=== PATIENT | male | born 1960 | race Caucasian/White ===

== ENCOUNTER → 2019-01-27 15:25 | Outpatient (CLI) | payer SELFPAY ==
[2019-01-27 16:43] LABS: Absolute Neutrophil Count 4.2 X10^3/uL (2.0-7.7); Basophil# 0.03 X10^3/uL; Basophil% 0.5 % (0-1); Eosinophil# 0.11 X10^3/uL; Eosinophils% 1.7 % (0-5); Hematocrit 49.7 % (40-54); Hemoglobin 16.8 g/dl (13.0-16.5); Lymphocyte % 24.2 % (19-41); Mean Corp Hgb Conc 33.8 g/gl (32-36); Mean Corpuscular Hgb 31.8 pg (27.0-32.0); Mean Corpuscular Volume 94.1 fL (80-94); Mean Platelet Vol. 11.1 fl (6.2-12.0); Monocyte# 0.64 X10^3/uL; Monocyte% 9.7 % (0-10); Neutrophil # 4.23 X10^3/uL (2.7-7.7); Neutrophil % 63.7 % (47-70); Platelet Count 261 K/mm3 (150-450); RBC Distribution Width CV 12.8 % (11.6-14.6); RBC Distribution Width SD 43.5 fl (35.1-43.9); Red Blood Count 5.28 M/mm3 (4.6-6.2); White Blood Count 6.6 K/mm3 (4.4-11.0)
[2019-01-27 16:45] LABS: POSITIVE COUNT NO; POSITIVE DIFFERENTIAL NO; POSITIVE MORPHOLOGY NO
[2019-01-27 17:54] LABS: ALB/GLOB Ratio 1.1 RATIO (0.9-2.4); AST(SGOT) 24 U/L (15-37); Alanine Aminotransfer ALT/SGPT 44 U/L (16-61); Albumin, Serum 4.1 g/dL (3.2-5.0); Alkaline Phosphatase 117 U/L (45-117); Anion Gap 6 (5-15); BUN 12 mg/dL (7-18); BUN/Creat Ratio 11.7 RATIO (10-20); Calcium,Total 9.1 mg/dL (8.5-10.1); Chloride 102 mmol/L (98-107); Creatinine, Serum 1.03 mg/dL (0.70-1.30); EST Glomerular Filtration Rate 79 mL/min (>60); Est Glom Filt Rate - Afr Amer 96 mL/min (>60); Globulin 3.7 g/dL (2.2-4.2); Glucose 91 mg/dL (74-106); PSA,Total - Annual Screen 0.67 ng/mL (0.00-4.00); Potassium 4.3 mmol/L (3.5-5.1); Protein, Total 7.8 g/dL (6.4-8.2); Sodium Level 136 mmol/L (136-145)
[2019-01-29 15:29] LABS: Hep C Antibodies <0.1 s/co ratio (0.0-0.9)
== END ==
PROVIDERS: Visit Provider Family Medicine Geriatric Medicine
DX: E78.49 Other hyperlipidemia (principal); Z12.5 Encounter for screening for malignant neoplasm of prostate; Z13.89 Encounter for screening for other disorder
CPT/HCPCS: 36415; 80053; 84153; 84443; 85025; 86803; G0103

== ENCOUNTER → 2019-04-07 09:19 | Outpatient (CLI) | payer OTHER, SELFPAY ==
[2019-04-11 06:08] LABS: QNTFERON TB Mitogen Value > 10.00 IU/mL (.); QNTFERON TB Nil Value 0.03 IU/mL (.); QNTFERON TB1+ Ag Value 0.02 IU/mL (.); QNTFERON TB2+ Ag Value 0.02 IU/mL (.)
[2019-04-11 11:12] LABS: QNTIFERON TB Positive Criteria Negative (Negative)
== END ==
PROVIDERS: Family Provider Family Medicine Geriatric Medicine; PCP Family Medicine Geriatric Medicine; Referring Provider Nurse Practitioner Family; Visit Provider Nurse Practitioner Family
DX: L81.4 Other melanin hyperpigmentation (principal); L40.4 Guttate psoriasis; L40.0 Psoriasis vulgaris; Z79.899 Other long term (current) drug therapy
CPT/HCPCS: 36415; 86480

== ENCOUNTER → 2020-08-16 08:26 | Outpatient (CLI) | payer OTHER, SELFPAY ==
[2020-08-16 10:03] LABS: Absolute Lymphocyte Count 1.63 X10^3/uL (0.83-4.51); Basophil# 0.04 X10^3/uL; Basophil% 0.9 % (0-1); Eosinophil# 0.12 X10^3/uL; Eosinophils% 2.8 % (0-5); Hematocrit 50.6 % (40-54); Hemoglobin 16.7 g/dL (13.0-16.5); Lymphocyte # 1.63 X10^3/ul (4.0); Lymphocyte % 37.4 % (19-41); Mean Corpuscular Hgb 32.2 pg (27.0-32.0); Mean Corpuscular Volume 97.5 fL (80-94); Mean Platelet Vol. 10.2 fl (6.2-12.0); Monocyte# 0.52 X10^3/uL; Monocyte% 11.9 % (0-10); NRBC Flagged by Analyzer 0 % (0-5); Neutrophil # 2.04 X10^3/uL (2.7-7.7); Neutrophil % 46.8 % (47-70); Platelet Count 248 K/mm3 (150-450); RBC Distribution Width CV 12.2 % (11.6-14.6); RBC Distribution Width SD 43.8 fl (35.1-43.9); Red Blood Count 5.19 M/mm3 (4.6-6.2); White Blood Count 4.4 K/mm3 (4.4-11.0)
[2020-08-16 10:17] LABS: AST(SGOT) 27 U/L (15-37); Alanine Aminotransfer ALT/SGPT 55 U/L (16-61); Alkaline Phosphatase 92 U/L (45-117); Anion Gap 5 (5-15); BUN 11 mg/dL (7-18); BUN/Creat Ratio 10.6 RATIO (10-20); Calcium,Total 9.3 mg/dL (8.5-10.1); Chloride 103 mmol/L (98-107); Creatinine, Serum 1.04 mg/dL (0.70-1.30); EST Glomerular Filtration Rate 78 mL/min (>60); Est Glom Filt Rate - Afr Amer 94 mL/min (>60); Glucose 133 mg/dL (74-106); Potassium 4.4 mmol/L (3.5-5.1); Sodium Level 134 mmol/L (136-145)
[2020-08-20 03:06] LABS: QNTFERON TB Mitogen Value > 10.00 IU/mL (.); QNTFERON TB Nil Value 0.05 IU/mL (.); QNTFERON TB1+ Ag Value 0.05 IU/mL (.); QNTFERON TB2+ Ag Value 0.06 IU/mL (.)
[2020-08-20 12:14] LABS: QNTIFERON TB Positive Criteria Negative (Negative)
== END ==
PROVIDERS: PCP Family Medicine Geriatric Medicine; Referring Provider Physician Assistant; Visit Provider Physician Assistant
DX: L40.0 Psoriasis vulgaris (principal); Z79.899 Other long term (current) drug therapy
CPT/HCPCS: 36415; 80053; 85025; 86480

== ENCOUNTER → 2021-08-16 07:57 | Outpatient (CLI) | payer OTHER, SELFPAY ==
[2021-08-16 10:05] LABS: Absolute Lymphocyte Count 1.98 X10^3/uL (0.83-4.51); Basophil# 0.04 X10^3/uL; Basophil% 0.7 % (0-1); Eosinophil# 0.18 X10^3/uL; Eosinophils% 3.1 % (0-5); Hematocrit 51.5 % (40-54); Hemoglobin 17.6 g/dL (13.0-16.5); Lymphocyte # 1.98 X10^3/ul (0.83-4.51); Lymphocyte % 34.1 % (19-41); Mean Corp Hgb Conc 34.2 g/dL (32-36); Mean Corpuscular Hgb 32.7 pg (27.0-32.0); Mean Corpuscular Volume 95.7 fL (80-94); Mean Platelet Vol. 10.1 fl (6.2-12.0); Monocyte# 0.56 X10^3/uL; Monocyte% 9.7 % (0-10); NRBC Flagged by Analyzer 0 % (0-5); Neutrophil # 3.01 X10^3/uL (2.7-7.7); Neutrophil % 51.9 % (47-70); Platelet Count 257 K/mm3 (150-450); RBC Distribution Width CV 12.5 % (11.6-14.6); RBC Distribution Width SD 44.5 fl (35.1-43.9); Red Blood Count 5.38 M/mm3 (4.6-6.2); White Blood Count 5.8 K/mm3 (4.4-11.0)
[2021-08-16 10:16] LABS: Anion Gap 6 (5-15); BUN 11 mg/dL (7-18); Calcium,Total 9.6 mg/dL (8.5-10.1); Chloride 102 mmol/L (98-107); EST Glomerular Filtration Rate 81 mL/min (>60); Est Glom Filt Rate - Afr Amer 98 mL/min (>60); Glucose 128 mg/dL (74-106); Sodium Level 135 mmol/L (136-145)
[2021-08-22 22:07] LABS: QNTFERON TB Mitogen Value > 10.00 IU/mL (.); QNTFERON TB Nil Value 0.08 IU/mL (.); QNTFERON TB2+ Ag Value 0 IU/mL (.)
[2021-08-23 09:28] LABS: QNTIFERON TB Positive Criteria Negative (Negative)
== END ==
PROVIDERS: PCP Family Medicine Geriatric Medicine; Referring Provider Physician Assistant; Visit Provider Physician Assistant
DX: L40.0 Psoriasis vulgaris (principal); L57.0 Actinic keratosis; L72.0 Epidermal cyst; D48.5 Neoplasm of uncertain behavior of skin; L57.8 Other skin changes due to chronic exposure to nonionizing radiation; Z71.89 Other specified counseling; Z79.899 Other long term (current) drug therapy
CPT/HCPCS: 36415; 80048; 85025; 86480

== ENCOUNTER 2021-12-17 07:42 | Outpatient (CLI) | payer OTHER, SELFPAY ==
[2021-12-17 10:24] LABS: Erythrocyte Sedimentation Rate 9 mm/hr (0-20)
[2021-12-17 10:26] LABS: Absolute Lymphocyte Count 1.76 X10^3/uL (0.83-4.51); Absolute Neutrophil Count 2.5 X10^3/uL (2.0-7.7); Basophil# 0.03 X10^3/uL; Basophil% 0.6 % (0-1); Eosinophil# 0.18 X10^3/uL; Eosinophils% 3.7 % (0-5); Hematocrit 49.3 % (40-54); Hemoglobin 17.4 g/dL (13.0-16.5); Lymphocyte # 1.76 X10^3/ul (0.83-4.51); Lymphocyte % 35.7 % (19-41); Mean Corp Hgb Conc 35.3 g/dL (32-36); Mean Corpuscular Hgb 33.2 pg (27.0-32.0); Mean Corpuscular Volume 94.1 fL (80-94); Mean Platelet Vol. 10.7 fl (6.2-12.0); Monocyte# 0.43 X10^3/uL; Monocyte% 8.7 % (0-10); NRBC Flagged by Analyzer 0 % (0-5); Neutrophil # 2.51 X10^3/uL (2.7-7.7); Neutrophil % 50.9 % (47-70); Platelet Count 260 K/mm3 (150-450); RBC Distribution Width CV 12.1 % (11.6-14.6); RBC Distribution Width SD 42.5 fl (35.1-43.9); Red Blood Count 5.24 M/mm3 (4.6-6.2); White Blood Count 4.9 K/mm3 (4.4-11.0)
[2021-12-17 10:35] LABS: AST(SGOT) 23 U/L (15-37); Alanine Aminotransfer ALT/SGPT 39 U/L (16-61); Albumin, Serum 3.8 g/dL (3.2-5.0); Alkaline Phosphatase 100 U/L (45-117); Anion Gap 7 (5-15); BUN 10 mg/dL (7-18); BUN/Creat Ratio 9.9 RATIO (10-20); CRP < 2.90 mg/L (0.0-3.0); Chloride 102 mmol/L (98-107); Creatinine, Serum 1.01 mg/dL (0.70-1.30); EST Glomerular Filtration Rate 80 mL/min (>60); Est Glom Filt Rate - Afr Amer 97 mL/min (>60); Glucose 151 mg/dL (74-106); Potassium 4.3 mmol/L (3.5-5.1); Protein, Total 7.8 g/dL (6.4-8.2); Rheumatoid Factor < 10.0 IU/mL (<15); Sodium Level 136 mmol/L (136-145)
[2021-12-17 11:05] LABS: Hepatitis B Surface Antibody Non-Reactive; Hepatitis B Surface Antigen Non-Reactive (Nonreactive); Hepatitis C Antibody Non-Reactive (Nonreactive)
[2021-12-18 13:23] LABS: ANTINUCLEAR ANTIBODIES DIRECT Negative (Negative)
[2021-12-19 06:08] LABS: QNTFERON TB Mitogen Value > 10.00 IU/mL (.); QNTFERON TB Nil Value 0.02 IU/mL (.); QNTFERON TB1+ Ag Value 0.04 IU/mL (.); QNTFERON TB2+ Ag Value 0.03 IU/mL (.)
[2021-12-19 18:54] LABS: CCP IgG Antibodies 8 units (0-19); QNTIFERON TB Positive Criteria Negative (Negative)
== END 2021-12-17 23:59 | disposition home or self-care (01) ==
LOC: MTLAB 07:47
PROVIDERS: PCP Family Medicine Geriatric Medicine; Referring Provider Internal Medicine Rheumatology; Visit Provider Internal Medicine Rheumatology
DX: L40.59 Other psoriatic arthropathy (principal); L40.8 Other psoriasis; E78.5 Hyperlipidemia, unspecified; I10 Essential (primary) hypertension; K57.90 Diverticulosis of intestine, part unspecified, without perforation or abscess without bleeding
CPT/HCPCS: 36415; 80053; 85025; 85652; 86038; 86140; 86200; 86431; 86480; 86706; 86803; 87340

== ENCOUNTER → 2022-02-18 | Outpatient (CLI) | payer OTHER, SELFPAY ==
[2022-02-18 10:09] LABS: Absolute Neutrophil Count 2.1 X10^3/uL (2.0-7.7); Basophil# 0.04 X10^3/uL; Basophil% 0.9 % (0-1); Eosinophil# 0.14 X10^3/uL; Eosinophils% 3.1 % (0-5); Hematocrit 48.5 % (40-54); Hemoglobin 16.4 g/dL (13.0-16.5); Lymphocyte % 35.6 % (19-41); Mean Corp Hgb Conc 33.8 g/dL (32-36); Mean Corpuscular Hgb 33.1 pg (27.0-32.0); Mean Corpuscular Volume 97.8 fL (80-94); Mean Platelet Vol. 10.4 fl (6.2-12.0); Monocyte# 0.57 X10^3/uL; Monocyte% 12.7 % (0-10); NRBC Flagged by Analyzer 0 % (0-5); Neutrophil # 2.12 X10^3/uL (2.7-7.7); Platelet Count 247 K/mm3 (150-450); RBC Distribution Width CV 13.2 % (11.6-14.6); RBC Distribution Width SD 46.7 fl (35.1-43.9); Red Blood Count 4.96 M/mm3 (4.6-6.2); White Blood Count 4.5 K/mm3 (4.4-11.0)
[2022-02-18 10:36] LABS: ALB/GLOB Ratio 1.1 RATIO (0.9-2.4); AST(SGOT) 21 U/L (15-37); Alanine Aminotransfer ALT/SGPT 38 U/L (16-61); Albumin, Serum 3.8 g/dL (3.2-5.0); Alkaline Phosphatase 91 U/L (45-117); Anion Gap 7 (5-15); BUN 12 mg/dL (7-18); BUN/Creat Ratio 11.8 RATIO (10-20); Chloride 100 mmol/L (98-107); Creatinine, Serum 1.02 mg/dL (0.70-1.30); EST Glomerular Filtration Rate 79 mL/min (>60); Est Glom Filt Rate - Afr Amer 96 mL/min (>60); Globulin 3.6 g/dL (2.2-4.2); Glucose 134 mg/dL (74-106); Potassium 4.2 mmol/L (3.5-5.1); Protein, Total 7.4 g/dL (6.4-8.2); Sodium Level 133 mmol/L (136-145)
== END | disposition home or self-care (01) ==
LOC: MTLAB 08:37
PROVIDERS: PCP Family Medicine Geriatric Medicine; Referring Provider Internal Medicine Rheumatology; Visit Provider Internal Medicine Rheumatology
DX: L40.59 Other psoriatic arthropathy (principal); L40.8 Other psoriasis; E78.5 Hyperlipidemia, unspecified; I10 Essential (primary) hypertension; K57.90 Diverticulosis of intestine, part unspecified, without perforation or abscess without bleeding
CPT/HCPCS: 36415; 80053; 85025

== ENCOUNTER → 2022-04-23 | Outpatient (CLI) | payer OTHER, SELFPAY ==
[2022-04-23 10:17] LABS: Absolute Neutrophil Count 2.2 X10^3/uL (2.0-7.7); Basophil# 0.05 X10^3/uL; Eosinophil# 0.21 X10^3/uL; Eosinophils% 4.3 % (0-5); Hematocrit 47.5 % (40-54); Hemoglobin 16.4 g/dL (13.0-16.5); Lymphocyte % 38.8 % (19-41); Mean Corp Hgb Conc 34.5 g/dL (32-36); Mean Corpuscular Hgb 33.8 pg (27.0-32.0); Mean Corpuscular Volume 97.9 fL (80-94); Mean Platelet Vol. 9.9 fl (6.2-12.0); Monocyte# 0.57 X10^3/uL; Monocyte% 11.6 % (0-10); NRBC Flagged by Analyzer 0 % (0-5); Neutrophil # 2.15 X10^3/uL (2.7-7.7); Neutrophil % 43.9 % (47-70); Platelet Count 253 K/mm3 (150-450); RBC Distribution Width CV 12.7 % (11.6-14.6); RBC Distribution Width SD 45.5 fl (35.1-43.9); Red Blood Count 4.85 M/mm3 (4.6-6.2); White Blood Count 4.9 K/mm3 (4.4-11.0)
[2022-04-23 10:37] LABS: ALB/GLOB Ratio 1.1 RATIO (0.9-2.4); AST(SGOT) 36 U/L (15-37); Alanine Aminotransfer ALT/SGPT 60 U/L (16-61); Albumin, Serum 3.9 g/dL (3.2-5.0); Alkaline Phosphatase 97 U/L (45-117); Anion Gap 5 (5-15); BUN 8 mg/dL (7-18); Calcium,Total 9.1 mg/dL (8.5-10.1); Chloride 102 mmol/L (98-107); Creatinine, Serum 0.89 mg/dL (0.70-1.30); EST Glomerular Filtration Rate 93 mL/min (>60); Est Glom Filt Rate - Afr Amer 112 mL/min (>60); Globulin 3.7 g/dL (2.2-4.2); Glucose 108 mg/dL (74-106); Potassium 4.2 mmol/L (3.5-5.1); Protein, Total 7.6 g/dL (6.4-8.2); Sodium Level 135 mmol/L (136-145)
== END | disposition home or self-care (01) ==
LOC: MTLAB 07:33
PROVIDERS: PCP Family Medicine Geriatric Medicine; Referring Provider Internal Medicine Rheumatology; Visit Provider Internal Medicine Rheumatology
DX: L40.59 Other psoriatic arthropathy (principal); L40.8 Other psoriasis; E78.5 Hyperlipidemia, unspecified; I10 Essential (primary) hypertension; K57.90 Diverticulosis of intestine, part unspecified, without perforation or abscess without bleeding; Z79.899 Other long term (current) drug therapy
CPT/HCPCS: 36415; 80053; 85025

== ENCOUNTER → 2022-07-18 | Outpatient (CLI) | payer OTHER, SELFPAY ==
[2022-07-18 09:58] LABS: Absolute Neutrophil Count 2.9 X10^3/uL (2.0-7.7); Basophil# 0.06 X10^3/uL; Basophil% 1.1 % (0-1); Eosinophil# 0.19 X10^3/uL; Eosinophils% 3.5 % (0-5); Hematocrit 50.9 % (40-54); Hemoglobin 17.1 g/dL (13.0-16.5); Mean Corp Hgb Conc 33.6 g/dL (32-36); Mean Corpuscular Hgb 32.9 pg (27.0-32.0); Mean Corpuscular Volume 97.9 fL (80-94); Mean Platelet Vol. 10.1 fl (6.2-12.0); Monocyte# 0.49 X10^3/uL; NRBC Flagged by Analyzer 0 % (0-5); Neutrophil # 2.87 X10^3/uL (2.7-7.7); Neutrophil % 52.5 % (47-70); Platelet Count 268 K/mm3 (150-450); RBC Distribution Width CV 12.3 % (11.6-14.6); RBC Distribution Width SD 44.8 fl (35.1-43.9); White Blood Count 5.5 K/mm3 (4.4-11.0)
[2022-07-18 10:18] LABS: AST(SGOT) 27 U/L (15-37); Alanine Aminotransfer ALT/SGPT 54 U/L (16-61); Albumin, Serum 3.9 g/dL (3.2-5.0); Alkaline Phosphatase 97 U/L (45-117); Anion Gap 6 (5-15); BUN 10 mg/dL (7-18); BUN/Creat Ratio 9.8 RATIO (10-20); Calcium,Total 9.3 mg/dL (8.5-10.1); Chloride 102 mmol/L (98-107); Creatinine, Serum 1.02 mg/dL (0.70-1.30); EST Glomerular Filtration Rate 79 mL/min (>60); Est Glom Filt Rate - Afr Amer 96 mL/min (>60); Globulin 4.1 g/dL (2.2-4.2); Glucose 118 mg/dL (74-106); Potassium 4.3 mmol/L (3.5-5.1); Sodium Level 136 mmol/L (136-145)
== END | disposition home or self-care (01) ==
LOC: MTLAB 07:37
PROVIDERS: PCP Family Medicine Geriatric Medicine; Referring Provider Internal Medicine Rheumatology; Visit Provider Internal Medicine Rheumatology
DX: L40.59 Other psoriatic arthropathy (principal); L40.8 Other psoriasis; E78.5 Hyperlipidemia, unspecified; I10 Essential (primary) hypertension; K57.90 Diverticulosis of intestine, part unspecified, without perforation or abscess without bleeding; Z79.899 Other long term (current) drug therapy
CPT/HCPCS: 36415; 80053; 85025

== ENCOUNTER → 2022-09-26 | Outpatient (CLI) | payer OTHER, SELFPAY ==
[2022-09-26 10:01] LABS: Absolute Lymphocyte Count 1.77 X10^3/uL (0.83-4.51); Absolute Neutrophil Count 2.6 X10^3/uL (2.0-7.7); Basophil# 0.03 X10^3/uL; Basophil% 0.6 % (0-1); Eosinophil# 0.12 X10^3/uL; Eosinophils% 2.4 % (0-5); Hematocrit 48.1 % (40-54); Hemoglobin 16.3 g/dL (13.0-16.5); Lymphocyte # 1.77 X10^3/ul (0.83-4.51); Lymphocyte % 34.8 % (19-41); Mean Corp Hgb Conc 33.9 g/dL (32-36); Mean Corpuscular Hgb 33.3 pg (27.0-32.0); Mean Corpuscular Volume 98.2 fL (80-94); Mean Platelet Vol. 9.8 fl (6.2-12.0); Monocyte# 0.57 X10^3/uL; Monocyte% 11.2 % (0-10); NRBC Flagged by Analyzer 0 % (0-5); Neutrophil # 2.58 X10^3/uL (2.7-7.7); Neutrophil % 50.6 % (47-70); Platelet Count 243 K/mm3 (150-450); RBC Distribution Width CV 12.6 % (11.6-14.6); RBC Distribution Width SD 45.6 fl (35.1-43.9); White Blood Count 5.1 K/mm3 (4.4-11.0)
[2022-09-26 10:29] LABS: ALB/GLOB Ratio 1.2 RATIO (0.9-2.4); AST(SGOT) 16 U/L (15-37); Alanine Aminotransfer ALT/SGPT 35 U/L (16-61); Albumin, Serum 3.8 g/dL (3.2-5.0); Alkaline Phosphatase 97 U/L (45-117); Anion Gap 7 (5-15); BUN 10 mg/dL (7-18); BUN/Creat Ratio 9.7 RATIO (10-20); Calcium,Total 9.1 mg/dL (8.5-10.1); Chloride 100 mmol/L (98-107); Creatinine, Serum 1.03 mg/dL (0.70-1.30); EST Glomerular Filtration Rate 78 mL/min (>60); Est Glom Filt Rate - Afr Amer 94 mL/min (>60); Globulin 3.1 g/dL (2.2-4.2); Glucose 164 mg/dL (74-106); Potassium 4.5 mmol/L (3.5-5.1); Protein, Total 6.9 g/dL (6.4-8.2); Sodium Level 134 mmol/L (136-145)
== END | disposition home or self-care (01) ==
LOC: MTLAB 07:39
PROVIDERS: PCP Family Medicine Geriatric Medicine; Referring Provider Internal Medicine Rheumatology; Visit Provider Internal Medicine Rheumatology
DX: Z79.899 Other long term (current) drug therapy (principal); L40.59 Other psoriatic arthropathy; L40.8 Other psoriasis; E78.5 Hyperlipidemia, unspecified; I10 Essential (primary) hypertension; K57.90 Diverticulosis of intestine, part unspecified, without perforation or abscess without bleeding
CPT/HCPCS: 36415; 80053; 85025

== ENCOUNTER → 2022-12-25 | Outpatient (CLI) | payer OTHER, SELFPAY ==
[2022-12-25 09:57] LABS: Absolute Lymphocyte Count 1.68 X10^3/uL (0.83-4.51); Absolute Neutrophil Count 3.8 X10^3/uL (2.0-7.7); Basophil# 0.05 X10^3/uL; Basophil% 0.8 % (0-1); Eosinophil# 0.15 X10^3/uL; Eosinophils% 2.4 % (0-5); Hematocrit 48.9 % (40-54); Hemoglobin 16.2 g/dL (13.0-16.5); Lymphocyte # 1.68 X10^3/ul (0.83-4.51); Lymphocyte % 26.9 % (19-41); Mean Corp Hgb Conc 33.1 g/dL (32-36); Mean Corpuscular Hgb 32.7 pg (27.0-32.0); Mean Corpuscular Volume 98.6 fL (80-94); Monocyte# 0.57 X10^3/uL; Monocyte% 9.1 % (0-10); NRBC Flagged by Analyzer 0 % (0-5); Neutrophil # 3.76 X10^3/uL (2.7-7.7); Neutrophil % 60.3 % (47-70); Platelet Count 230 K/mm3 (150-450); RBC Distribution Width CV 12.8 % (11.6-14.6); RBC Distribution Width SD 46.1 fl (35.1-43.9); Red Blood Count 4.96 M/mm3 (4.6-6.2); White Blood Count 6.2 K/mm3 (4.4-11.0)
[2022-12-25 10:39] LABS: ALB/GLOB Ratio 1.1 RATIO (0.9-2.4); AST(SGOT) 24 U/L (15-37); Alanine Aminotransfer ALT/SGPT 44 U/L (16-61); Albumin, Serum 3.8 g/dL (3.2-5.0); Alkaline Phosphatase 83 U/L (45-117); Anion Gap 5 (5-15); BUN 10 mg/dL (7-18); BUN/Creat Ratio 9.4 RATIO (10-20); Calcium,Total 9.4 mg/dL (8.5-10.1); Chloride 101 mmol/L (98-107); Creatinine, Serum 1.06 mg/dL (0.70-1.30); EST Glomerular Filtration Rate 75 mL/min (>60); Est Glom Filt Rate - Afr Amer 91 mL/min (>60); Globulin 3.6 g/dL (2.2-4.2); Glucose 151 mg/dL (74-106); Potassium 4.6 mmol/L (3.5-5.1); Protein, Total 7.4 g/dL (6.4-8.2); Sodium Level 134 mmol/L (136-145)
== END | disposition home or self-care (01) ==
LOC: MTLAB 07:05
PROVIDERS: PCP Family Medicine Geriatric Medicine; Referring Provider Internal Medicine Rheumatology; Visit Provider Internal Medicine Rheumatology
DX: L40.59 Other psoriatic arthropathy (principal); L40.8 Other psoriasis; E78.5 Hyperlipidemia, unspecified; I10 Essential (primary) hypertension; K57.90 Diverticulosis of intestine, part unspecified, without perforation or abscess without bleeding; Z79.899 Other long term (current) drug therapy
CPT/HCPCS: 36415; 80053; 85025

== ENCOUNTER → 2023-03-19 | Outpatient (CLI) | payer OTHER, SELFPAY ==
[2023-03-19 10:40] LABS: Absolute Neutrophil Count 1.9 X10^3/uL (2.0-7.7); Basophil# 0.03 X10^3/uL; Basophil% 0.9 % (0-1); Eosinophil# 0.11 X10^3/uL; Eosinophils% 3.2 % (0-5); Hematocrit 48.9 % (40-54); Hemoglobin 16.7 g/dL (13.0-16.5); Lymphocyte % 28.7 % (19-41); Mean Corp Hgb Conc 34.2 g/dL (32-36); Mean Corpuscular Hgb 33.9 pg (27.0-32.0); Mean Corpuscular Volume 99.4 fL (80-94); Monocyte# 0.46 X10^3/uL; Monocyte% 13.2 % (0-10); NRBC Flagged by Analyzer 0 % (0-5); Neutrophil # 1.87 X10^3/uL (2.7-7.7); Neutrophil % 53.4 % (47-70); Platelet Count 221 K/mm3 (150-450); RBC Distribution Width CV 12.9 % (11.6-14.6); RBC Distribution Width SD 47.6 fl (35.1-43.9); Red Blood Count 4.92 M/mm3 (4.6-6.2); White Blood Count 3.5 K/mm3 (4.4-11.0)
[2023-03-19 11:20] LABS: ALB/GLOB Ratio 0.9 RATIO (0.9-2.4); AST(SGOT) 40 U/L (15-37); Alanine Aminotransfer ALT/SGPT 56 U/L (16-61); Albumin, Serum 3.6 g/dL (3.2-5.0); Alkaline Phosphatase 92 U/L (45-117); Anion Gap 7 (5-15); BUN 9 mg/dL (7-18); BUN/Creat Ratio 8.8 RATIO (10-20); Calcium,Total 8.9 mg/dL (8.5-10.1); Chloride 102 mmol/L (98-107); Creatinine, Serum 1.02 mg/dL (0.70-1.30); EST Glomerular Filtration Rate 79 mL/min (>60); Est Glom Filt Rate - Afr Amer 95 mL/min (>60); Globulin 3.8 g/dL (2.2-4.2); Glucose 159 mg/dL (74-106); Potassium 4.3 mmol/L (3.5-5.1); Protein, Total 7.4 g/dL (6.4-8.2); Sodium Level 135 mmol/L (136-145)
== END | disposition home or self-care (01) ==
LOC: MTLAB 08:18
PROVIDERS: PCP Family Medicine Geriatric Medicine; Referring Provider Internal Medicine Rheumatology; Visit Provider Internal Medicine Rheumatology
DX: L40.59 Other psoriatic arthropathy (principal); Z79.899 Other long term (current) drug therapy
CPT/HCPCS: 36415; 80053; 85025

== ENCOUNTER → 2023-04-07 | Outpatient (CLI) | payer OTHER, SELFPAY ==
--- NOTE | 2023-04-07 07:15 | US_ITS ---
Examination: Right upper quadrant abdominal ultrasound. INDICATION: Elevated liver enzymes. TECHNIQUE: A dedicated right upper quadrant ultrasound including Doppler imaging was obtained. COMPARISON: None FINDINGS: The liver is diffusely echogenic consistent with fatty infiltration. The gallbladder is within normal limits. There is no gallbladder wall thickening, pericholecystic fluid nor shadowing gallstones. No positive sonographic Tellez''s sign. The common bile duct measures 3.3 mm. The visualized pancreas is within normal limits. The right kidney measures 13.9 cm in length and is within normal limits. US/Abdomen Limited IMPRESSION: Fatty infiltration of the liver. Electronically Signed: Cielo Rondon MD at 8:29 EDT ,
== END | disposition home or self-care (01) ==
PROVIDERS: PCP Family Medicine Geriatric Medicine; Referring Provider Internal Medicine Rheumatology; Visit Provider Internal Medicine Rheumatology
DX: R74.01 Elevation of levels of liver transaminase levels (principal); L40.59 Other psoriatic arthropathy; Z79.899 Other long term (current) drug therapy
CPT/HCPCS: 76705

== ENCOUNTER → 2023-04-23 | Outpatient (CLI) | payer OTHER, SELFPAY ==
[2023-04-23 10:06] LABS: Absolute Lymphocyte Count 1.45 X10^3/uL (0.83-4.51); Absolute Neutrophil Count 2.5 X10^3/uL (2.0-7.7); Basophil# 0.03 X10^3/uL; Basophil% 0.6 % (0-1); Eosinophil# 0.12 X10^3/uL; Eosinophils% 2.6 % (0-5); Hematocrit 48.3 % (40-54); Lymphocyte # 1.45 X10^3/ul (0.83-4.51); Lymphocyte % 31.3 % (19-41); Mean Corp Hgb Conc 35.2 g/dL (32-36); Mean Corpuscular Hgb 33.8 pg (27.0-32.0); Mean Platelet Vol. 9.3 fl (6.2-12.0); Monocyte# 0.56 X10^3/uL; Monocyte% 12.1 % (0-10); NRBC Flagged by Analyzer 0 % (0-5); Neutrophil # 2.46 X10^3/uL (2.7-7.7); Platelet Count 231 K/mm3 (150-450); RBC Distribution Width CV 12.6 % (11.6-14.6); RBC Distribution Width SD 44.9 fl (35.1-43.9); Red Blood Count 5.03 M/mm3 (4.6-6.2); White Blood Count 4.6 K/mm3 (4.4-11.0)
[2023-04-23 11:16] LABS: AST(SGOT) 47 U/L (15-37); Alanine Aminotransfer ALT/SGPT 70 U/L (16-61); Albumin, Serum 3.9 g/dL (3.2-5.0); Alkaline Phosphatase 104 U/L (45-117); Anion Gap 8 (5-15); BUN 8 mg/dL (7-18); BUN/Creat Ratio 8.4 RATIO (10-20); Calcium,Total 9.2 mg/dL (8.5-10.1); Chloride 101 mmol/L (98-107); Creatinine, Serum 0.95 mg/dL (0.70-1.30); EST Glomerular Filtration Rate 86 mL/min (>60); Est Glom Filt Rate - Afr Amer 104 mL/min (>60); Glucose 149 mg/dL (74-106); Potassium 4.3 mmol/L (3.5-5.1); Protein, Total 7.9 g/dL (6.4-8.2); Sodium Level 133 mmol/L (136-145)
== END | disposition home or self-care (01) ==
PROVIDERS: PCP Family Medicine; Referring Provider Internal Medicine Rheumatology; Visit Provider Internal Medicine Rheumatology
DX: L40.59 Other psoriatic arthropathy (principal); L40.8 Other psoriasis; Z79.899 Other long term (current) drug therapy
CPT/HCPCS: 36415; 80053; 84443; 85025

== ENCOUNTER → 2023-06-17 | Outpatient (CLI) | payer OTHER, SELFPAY ==
[2023-06-17 10:25] LABS: Absolute Lymphocyte Count 1.78 X10^3/uL (0.83-4.51); Absolute Neutrophil Count 2.4 X10^3/uL (2.0-7.7); Basophil# 0.04 X10^3/uL; Basophil% 0.8 % (0-1); Eosinophil# 0.15 X10^3/uL; Eosinophils% 3.1 % (0-5); Hematocrit 49.4 % (40-54); Hemoglobin 16.7 g/dL (13.0-16.5); Lymphocyte # 1.78 X10^3/ul (0.83-4.51); Lymphocyte % 36.4 % (19-41); Mean Corp Hgb Conc 33.8 g/dL (32-36); Mean Corpuscular Hgb 33.2 pg (27.0-32.0); Mean Corpuscular Volume 98.2 fL (80-94); Mean Platelet Vol. 10.1 fl (6.2-12.0); Monocyte# 0.55 X10^3/uL; Monocyte% 11.2 % (0-10); NRBC Flagged by Analyzer 0 % (0-5); Neutrophil # 2.35 X10^3/uL (2.7-7.7); Neutrophil % 48.1 % (47-70); Platelet Count 242 K/mm3 (150-450); RBC Distribution Width CV 12.5 % (11.6-14.6); RBC Distribution Width SD 45.2 fl (35.1-43.9); Red Blood Count 5.03 M/mm3 (4.6-6.2); White Blood Count 4.9 K/mm3 (4.4-11.0)
[2023-06-17 10:56] LABS: AST(SGOT) 30 U/L (15-37); Alanine Aminotransfer ALT/SGPT 51 U/L (16-61); Albumin, Serum 3.7 g/dL (3.2-5.0); Alkaline Phosphatase 96 U/L (45-117); Anion Gap 4 (5-15); BUN 8 mg/dL (7-18); BUN/Creat Ratio 7.9 RATIO (10-20); Calcium,Total 9.1 mg/dL (8.5-10.1); Chloride 102 mmol/L (98-107); Creatinine, Serum 1.01 mg/dL (0.70-1.30); EST Glomerular Filtration Rate 80 mL/min (>60); Est Glom Filt Rate - Afr Amer 96 mL/min (>60); Globulin 3.8 g/dL (2.2-4.2); Glucose 152 mg/dL (74-106); Potassium 4.4 mmol/L (3.5-5.1); Protein, Total 7.5 g/dL (6.4-8.2); Sodium Level 134 mmol/L (136-145)
== END | disposition home or self-care (01) ==
PROVIDERS: PCP Family Medicine; Referring Provider Internal Medicine Rheumatology; Visit Provider Internal Medicine Rheumatology
DX: L40.59 Other psoriatic arthropathy (principal); Z79.899 Other long term (current) drug therapy
CPT/HCPCS: 36415; 80053; 85025

== ENCOUNTER → 2023-07-16 | Outpatient (CLI) | payer OTHER, SELFPAY ==
[2023-07-16 10:08] LABS: Absolute Lymphocyte Count 1.84 X10^3/uL (0.83-4.51); Absolute Neutrophil Count 2.7 X10^3/uL (2.0-7.7); Basophil# 0.05 X10^3/uL; Basophil% 0.9 % (0-1); Eosinophil# 0.18 X10^3/uL; Eosinophils% 3.3 % (0-5); Hematocrit 49.8 % (40-54); Hemoglobin 16.3 g/dL (13.0-16.5); Lymphocyte # 1.84 X10^3/ul (0.83-4.51); Mean Corp Hgb Conc 32.7 g/dL (32-36); Mean Corpuscular Hgb 32.9 pg (27.0-32.0); Mean Corpuscular Volume 100.4 fL (80-94); Mean Platelet Vol. 10.2 fl (6.2-12.0); Monocyte# 0.58 X10^3/uL; Monocyte% 10.7 % (0-10); NRBC Flagged by Analyzer 0 % (0-5); Neutrophil # 2.72 X10^3/uL (2.7-7.7); Neutrophil % 50.4 % (47-70); Platelet Count 266 K/mm3 (150-450); RBC Distribution Width SD 47.8 fl (35.1-43.9); Red Blood Count 4.96 M/mm3 (4.6-6.2); White Blood Count 5.4 K/mm3 (4.4-11.0)
[2023-07-16 11:32] LABS: AST(SGOT) 27 U/L (15-37); Alanine Aminotransfer ALT/SGPT 55 U/L (16-61); Albumin, Serum 3.7 g/dL (3.2-5.0); Alkaline Phosphatase 88 U/L (45-117); Anion Gap 7 (5-15); BUN 9 mg/dL (7-18); BUN/Creat Ratio 8.6 RATIO (10-20); Calcium,Total 8.8 mg/dL (8.5-10.1); Chloride 104 mmol/L (98-107); Creatinine, Serum 1.05 mg/dL (0.70-1.30); EST Glomerular Filtration Rate 76 mL/min (>60); Est Glom Filt Rate - Afr Amer 92 mL/min (>60); Globulin 3.7 g/dL (2.2-4.2); Glucose 166 mg/dL (74-106); Potassium 4.4 mmol/L (3.5-5.1); Protein, Total 7.4 g/dL (6.4-8.2); Sodium Level 136 mmol/L (136-145)
== END | disposition home or self-care (01) ==
PROVIDERS: PCP Family Medicine; Referring Provider Internal Medicine Rheumatology; Visit Provider Internal Medicine Rheumatology
DX: L40.59 Other psoriatic arthropathy (principal); L40.8 Other psoriasis; Z79.899 Other long term (current) drug therapy
CPT/HCPCS: 36415; 80053; 85025

== ENCOUNTER → 2023-10-16 | Outpatient (CLI) | payer OTHER, SELFPAY ==
--- OUTSIDE RECORDS SUMMARY | 2023-10-16 08:01 | XMS RPT_ITS | CCD ---
Author Name Unknown Address [address] [place] [address] Organization [facility] Care Team Providers Care Census Clerk Name Role Phone Kimber VARGAS MPH, Du Rios Primary Care Pro vider DU QUIROGA Attending Unavail able DU QUIROGA Primary Care Unavail able DU QUIROGA Attending Unavail able KIMBER, DU Rios Primary Care Unavail able KIMBER, DU Rios Attending Unavail able KIMBER, DU JOHNSON S Primary Care Unavail able Allergies Allergy Classification Reported Allergen(s) Allergy Type Date of Onset Reaction(s) Facility (4 sources) Pineapple; Translations: [PINEAPPLE] Propensity to adverse reactions 3 Other [facility] Medications Current Medications Medication Drug Class(es) Dates Sig (Normalized) Sig (Original) folic acid 1 mg oral tablet (3 sources) take 1 tablet by mouth twice daily folic acid (Folvite) 1 mg tablet Take 1 tablet (1 mg) by mouth 2 times a day. 0 Active 1 ml guselkumab 100 mg/ml auto-injector (1 source) Interleukin-23 Antagonist Start: 09-22-2023 Tremfya 100 mg/mL injection Inject 1 mL (100 mg) under the skin every 8 (eight) weeks. 0 09/22/2023 Active methotrexate 2.5 mg oral tablet (3 sources) Folate Analog Metabolic Inhibitor take 1 tablet by mouth every week, then take 6 tablets by mouth once in the evening methotrexate (Trexall) 2.5 mg tablet Take 1 tablet (2.5 mg total) by mouth 1 (one) time per week. 6 pills every Thursday in the evening 0 Active 24 hr metoprolol succinate 50 mg extended release oral tablet (5 sources) beta-Adrenergic Bouchra Start: 05-29-2023 End: 10-01-2024 take 1 tablet by mouth once daily metoprolol succinate XL (Toprol-XL) 50 mg 24 hr tablet Indications: Primary hypertension , Tachycardia Take 1 tablet (50 mg) by mouth once daily. Do not crush or chew. 90 tablet 3 10/02/2023 10/01/2024 Active Completed/Discontinued Medications Medication Drug Class(es) Dates Sig (Normalized) Sig (Original) amLODIPine 5 mg oral tablet (5 sources) Dihydropyridine Calcium Channel Bouchra Start: 04-17-2023 End: 09-26-2024 take 1 tablet by mouth once daily amLODIPine (Norvasc) 5 mg tablet Indications: Primary hypertension , Tachycardia Take 1 tablet (5 mg) by mouth once daily. 90 tablet 3 05/29/2023 10/02/2023 Discontinued (Reorder) 1 ml secukinumab 150 mg/ml prefilled syringe (3 sources) Interleukin-17A Antagonist End: 10-02-2023 secukinumab (Cosentyx) 150 mg/mL syringe Indications: psoriatic arthritis Inject 2 mL (300 mg) under the skin. Every 4 weeks 0 10/02/2023 Discontinued (Therapy completed) Problems Active Problems Problem Classification Problem Date Documented Date Episodic/Chronic Administrative/social admission (2 sources) Patient encounter status; Translations: [Persons encountering health services in other specified circumstances] 04-17-2023 Episodic Diverticulosis and diverticulitis (3 sources) Diverticulitis of large intestine without perforation or abscess without bleeding; Translations: [Diverticulitis of colon (without mention of hemorrhage)] Onset: 01-21-2010 04-17-2023 Chronic Essential hypertension (8 sources) Essential hypertension; Translations: [Essential (primary) hypertension] Onset: 04-17-2023 04-17-2023 Chronic Other inflammatory condition of skin (3 sources) Psoriasis; Translations: [Psoriasis, unspecified] Onset: 04-17-2023 04-17-2023 Chronic Other screening for suspected conditions (not mental disorders or infectious disease) (2 sources) Encounter for screening for lipoid disorders; Translations: [Encounter for screening for lipoid disorders] Onset: 10-02-2023 Episodic Rheumatoid arthritis and related disease (3 sources) Rheumatoid arthritis of multiple joints; Translations: [Rheumatoid arthritis with rheumatoid factor of multiple sites without organ or systems involvement] Onset: 04-17-2023 04-17-2023 Chronic Past or Other Problems Problem Classification Problem Date Documented Da te Episodic/Chronic Cardiac dysrhythmias (8 sources) Tachycardia; Translations: [Tachycardia, unspecified] Onset: 04-17-2023 04-17-2023 Episodic Unclassified (3 sources) Onset: 04-17-2023 04-17-2023 Vital Signs Date Time Vital Sign Value Performing Clinician Augusto angela 10-02-2023 10:44-0500 Diastolic blood pressure 80 mm[Hg] Du Quiroga MD MPH Work Phone: [facility] 10-02-2023 10:44-0500 Heart rate 96 /min Du Quiroga MD MPH Work Phone: [facility] 10-02-2023 10:44-0500 SaO2% (BldA) [Mass fraction] 95 % Du Quiroga MD MPH Work Phone: [facility] 10-02-2023 10:44-0500 Systolic blood pressure 132 mm[Hg] Du Quiroga MD MPH Work Phone: [facility] 10-02-2023 10:19-0500 Body mass index (BMI) [Ratio] 26.99 kg/m2 Du Quiroga MD MPH Work Phone: [facility] 10-02-2023 10:19-0500 Body weight 103.24 kg Du Quiroga MD MPH Work Phone: [facility] 05-29-2023 07:52-0400 Body mass index (BMI) [Ratio] 26.44 kg/m2 Du Quiroga MD MPH Work Phone: [facility] 05-29-2023 07:52-0400 Body weight 101.15 kg Du Quiroga MD MPH Work Phone: [facility] 05-29-2023 07:52-0400 Diastolic blood pressure 80 mm[Hg] Du Quiroga MD MPH Work Phone: [facility] 05-29-2023 07:52-0400 Heart rate 91 /min Du Quiroga MD MPH Work Phone: [facility] 05-29-2023 07:52-0400 SaO2% (BldA) [Mass fraction] 94 % Du Quiroga MD MPH Work Phone: [facility] 05-29-2023 07:52-0400 Systolic blood pressure 150 mm[Hg] Du Quiroga MD MPH Work Phone: [facility] 04-17-2023 08:17-0400 Body height 195.6 cm Du Quiroga MD MPH Work Phone: [facility] 04-17-2023 08:17-0400 Body mass index (BMI) [Ratio] 26.78 kg/m2 Du Quiroga MD MPH Work Phone: [facility] 04-17-2023 08:17-0400 Body weight 102.42 kg Du Quiroga MD MPH Work Phone: [facility] 04-17-2023 08:17-0400 Diastolic blood pressure 98 mm[Hg] Du Quiroga MD MPH Work Phone: [facility] 04-17-2023 08:17-0400 Heart rate 113 /min Du Quiroga MD MPH Work Phone: [facility] Encounters Encounter Date Encounter Type Care Provider Facility Start: 10-02-2023 End: 10-02-2023 ambulatory DU QUIROGA [facility] Ambulatory Start: 10-02-2023 End: 10-02-2023 Office outpatient visit 15 minutes Du Quiroga MD MPH Work Phone: [facility] Plan of Treatment Date Care Activity Detail Author Start: 04-01-2024 End: 04-01-2024 Patient encounter procedure 04/01/2024 8:20 AM EDT Office Visit [facility] [address] [place] [id number] Du Quiroga MD MPH [address] [facility], [address] [place] [address] [facility] Start: 01-18-2024 End: 10-02-2024 Lipid 1996 panel - Serum or Plasma Lipid Panel Lab Routine Lipid screening Expected: 01/18/2024 (Approximate), Expires: 10/02/2024 [facility] Service Area Work Phone: Payers Date Payer Category Payer Unknown [employer] [id number] 2022-Present [address] [place] [address] [id number] 2022 Unknown [id number] 1960 Unknown [id number] 1960 Unknown [id number] 1960 Unknown [id number] Social History Date Type Detail Facility Start: 04-17-2023 End: 05-29-2023 Tobacco smoking status NHIS Smokes tobacco daily [facility] Work Phone: [facility] Start: 04-17-2023 End: 05-29-2023 Tobacco use and exposure Smokeless tobacco non-user [facility] Work Phone: Start: 04-17-2023 End: 10-02-2023 Alcohol intake Current drinker of alcohol (finding) [facility] Work Phone: Start: 04-17-2023 End: 05-29-2023 Alcohol intake [facility] Work Phone: Start: 04-17-2023 End: 05-29-2023 Tobacco use panel [facility] Work Phone: Start: 04-17-2023 Alcohol Comment every night [facility] Work Phone: Start: 1960 Sex Assigned At [facility] Start: 04-07-2023 End: 10-02-2023 Exposure to SARS-CoV-2 (event) Not sure [facility] History of Present illness Narrative 10-02-2023 Du Quiroga MD MPH - 10/02/2023 10:20 AM EST Note Date & Type Note Facility 10-02-2023 History of Present illness Narrative Subjective Patient ID: Isdiro Ovalle is a 63 y.o. male who presents for Follow-up (PT is here for 4 month FUV. Did bring copy of his BP log, reports its been running good for the most part, only a couple days of it being high. ). HPI Home blood pressure readings have been normal. High initially in the clinic but normal on repeat check. Continue current regimen. Review of Systems ROS negative except discussed above in HPI. Vitals: 10/02/23 1044 BP: 132/80 Pulse: 96 SpO2: 95% Objective Physical Exam Constitutional: Appearance: Normal appearance. Cardiovascular: Rate and Rhythm: Normal rate and regular rhythm. Pulmonary: Effort: Pulmonary effort is normal. Breath sounds: Normal breath sounds. Neurological: Mental Status: He is alert. Assessment/Plan Isidro was seen today for follow-up. Diagnoses and all orders for this visit: Primary hypertension (Primary) - amLODIPine (Norvasc) 5 mg tablet; Take 1 tablet (5 mg) by mouth once daily. - metoprolol succinate XL (Toprol-XL) 50 mg 24 hr tablet; Take 1 tablet (50 mg) by mouth once daily. Do not crush or chew. Tachycardia - amLODIPine (Norvasc) 5 mg tablet; Take 1 tablet (5 mg) by mouth once daily. - metoprolol succinate XL (Toprol-XL) 50 mg 24 hr tablet; Take 1 tablet (50 mg) by mouth once daily. Do not crush or chew. Lipid screening - Cancel: Lipid Panel; Future - Lipid Panel; Future Follow up in 6 months. Du Quiroga MD MPH documented in this encounter [facility] Work Phone: History of Present illness Narrative 05-29-2023 Du Quiroga MD MPH - 05/29/2023 7:40 AM EDT Note Date & Type Note Facility 05-29-2023 History of Present illness Narrative Subjective Patient ID: Isidro Ovalle is a 62 y.o. male who presents for Follow-up (3-6 week FUV. Denies checking BP at home, so does not know how high it has been running). HPI HTN: Has not been checking BP at home. Denies noticing chest pain, shortness of breath or palpitations. Plan: BP much better than previous visit. Pulse improved as well. Increasing does of metoprolol, as both the pulse and BP are slightly elevated still. Recommended to check BP at home. Can increase dose if needed to 10mg of amlodipine. Right knee pain: had injury in his 20s. Now for the last two years his knee has been hurting. Reports that he is going to see Ortho soon for further eval. Review of Systems ROS negative except discussed above in HPI. Vitals: 05/29/23 0752 BP: 150/80 Pulse: 91 SpO2: 94% Objective Physical Exam Constitutional: Appearance: Normal appearance. Cardiovascular: Rate and Rhythm: Normal rate and regular rhythm. Pulmonary: Effort: Pulmonary effort is normal. Breath sounds: Normal breath sounds. Neurological: Mental Status: He is alert. Assessment/Plan Isidro was seen today for follow-up. Diagnoses and all orders for this visit: Primary hypertension - metoprolol succinate XL (Toprol-XL) 50 mg 24 hr tablet; Take 1 tablet (50 mg) by mouth once daily. Do not crush or chew. - amLODIPine (Norvasc) 5 mg tablet; Take 1 tablet (5 mg) by mouth once daily. Tachycardia - metoprolol succinate XL (Toprol-XL) 50 mg 24 hr tablet; Take 1 tablet (50 mg) by mouth once daily. Do not crush or chew. - amLODIPine (Norvasc) 5 mg tablet; Take 1 tablet (5 mg) by mouth once daily. Follow up in 3 months. Du Quiroga MD MPH documented in this encounter [facility] Work Phone: History of Present illness Narrative 04-17-2023 Du Quiroga MD MPH - 04/17/2023 8:00 AM EDT Note Date & Type Note Facility 04-17-2023 History of Present illness Narrative Subjective Patient ID: Isidro Ovalle is a 62 y.o. male who presents for New PT (New PT visit. Here to establish care for concerns of high BP. Arthritis clinic dr told him his BP was high and needed to get checked out. Does not know how high it has been just that it was elevated. Also suffers from low blood sugar, runs in his family. Cares pepsi around in case it drops really low. Pulse is elevated states he did smoke before coming in this morning). 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 Last time he took prednisone about a month ago. Denies chest pain, palpitations, shortness of breath. Plan: Given the evidence of Tachycardia and high blood pressure-starting Metoprolol. Tachycardia: No palpitations. His eyes are burning from the smoke Review of Systems ROS negative except discussed above in HPI. Vitals: 04/17/23 0817 BP: (!) 163/98 Pulse: (!) 113 SpO2: 96% Objective Physical Exam Constitutional: Appearance: Normal appearance. Cardiovascular: Rate and Rhythm: Normal rate and regular rhythm. Pulmonary: Effort: Pulmonary effort is normal. Breath sounds: Normal breath sounds. Musculoskeletal: Cervical back: Normal range of motion and neck supple. Lymphadenopathy: Cervical: No cervical adenopathy. Neurological: Mental Status: He is alert. Assessment/Plan Isidro was seen today for new pt . Diagnoses and all orders for this visit: Encounter to establish care (Primary) Primary hypertension - metoprolol succinate XL (Toprol-XL) 25 mg 24 hr tablet; Take 1 tablet (25 mg) by mouth once daily. Do not crush or chew. - amLODIPine (Norvasc) 5 mg tablet; Take 1 tablet (5 mg) by mouth once daily. - TSH with reflex to Free T4 if abnormal; Future Tachycardia - metoprolol succinate XL (Toprol-XL) 25 mg 24 hr tablet; Take 1 tablet (25 mg) by mouth once daily. Do not crush or chew. - amLODIPine (Norvasc) 5 mg tablet; Take 1 tablet (5 mg) by mouth once daily. - TSH with reflex to Free T4 if abnormal; Future Follow up in 3-4 weeks. Du Quiroga MD MPH documented in this encounter [facility] Work Phone: Evaluation note Note Date & Type Note Facility documented in this encounter [facility] Work Phone: Evaluation note Note Date & Type Note Facility documented in this encounter [facility] Work Phone: Evaluation note Note Date & Type Note Facility documented in this encounter [facility] Work Phone: Summary Purpose Family History No Family History Records Found Advance Directives No Advanced Directives Records Found Additional Source Comments Reason for Visit (unrecogniz ed section and content) Reason Comments Follow-up 3-6 week FUV. Denies checking BP at home, so does not know how high it has been running Reason Comments Follow-up PT is here for 4 mon th FUV. Did bring copy of his BP log, reports its been running good for the most part, only a couple days of it being high. Care Teams (unrecognized sec tion and content) Census Clerk Relationship Specialty Start Date End Date Du Quiroga MD MPH [address] [facility], [address] [place] [address] PCP - General Family Medicine 04/14/23 Census Clerk Relationship Specialty Start Date End Date Du Quiroga MD M[facility] [address] [facility] [address] [facility], [facility] [address] [place] [address] PCP - General Family Medicine 04/14/23 (unrecognized sect ion and content) No Status Records Found INFORMATION SOURCE (unrecogn ized section and content) FOR RECORDS PERTAINING TO PATIENTS WHO ARE OR HAVE BEEN ENROLLED IN A CHEMICAL DEPENDENCY/SUBSTANCEABUSE PROGRAM, SOME INFORMATION MAY BE OMITTED. This clinical summary was aggregated from multiple sources. Caution should be exercised in using it in the provision of clinical care. This summary normalizes information from multiple sources, and as a consequence, information in this document may materially change the coding, format and clinical context of patient data. In addition, data may be omitted in some cases. CLINICAL DECISIONS SHOULD BE BASED ON THE PRIMARY CLINICAL RECORDS. [facility] [employer] [facility]. provides no warranty or guarantee of the accuracy or completeness of information in this document.
[2023-10-16 09:51] LABS: Absolute Lymphocyte Count 2.07 X10^3/uL (0.83-4.51); Absolute Neutrophil Count 3.4 X10^3/uL (2.0-7.7); Basophil# 0.03 X10^3/uL; Basophil% 0.5 % (0-1); Eosinophil# 0.17 X10^3/uL; Eosinophils% 2.6 % (0-5); Hematocrit 51.2 % (40-54); Hemoglobin 16.8 g/dL (13.0-16.5); Lymphocyte # 2.07 X10^3/ul (0.83-4.51); Lymphocyte % 32.2 % (19-41); Mean Corp Hgb Conc 32.8 g/dL (32-36); Mean Corpuscular Hgb 32.6 pg (27.0-32.0); Mean Corpuscular Volume 99.2 fL (80-94); Mean Platelet Vol. 9.9 fl (6.2-12.0); Monocyte% 10.9 % (0-10); NRBC Flagged by Analyzer 0 % (0-5); Neutrophil # 3.42 X10^3/uL (2.7-7.7); Neutrophil % 53.3 % (47-70); Platelet Count 297 K/mm3 (150-450); RBC Distribution Width CV 12.9 % (11.6-14.6); RBC Distribution Width SD 47.5 fl (35.1-43.9); Red Blood Count 5.16 M/mm3 (4.6-6.2); White Blood Count 6.4 K/mm3 (4.4-11.0)
[2023-10-16 10:22] LABS: ALB/GLOB Ratio 0.9 RATIO (0.9-2.4); AST(SGOT) 21 U/L (15-37); Alanine Aminotransfer ALT/SGPT 31 U/L (16-61); Albumin, Serum 3.6 g/dL (3.2-5.0); Alkaline Phosphatase 95 U/L (45-117); Anion Gap 7 (5-15); BUN 9 mg/dL (7-18); BUN/Creat Ratio 9.3 RATIO (10-20); Calcium,Total 8.8 mg/dL (8.5-10.1); Chloride 103 mmol/L (98-107); Creatinine, Serum 0.97 mg/dL (0.70-1.30); EST Glomerular Filtration Rate 83 mL/min (>60); Est Glom Filt Rate - Afr Amer 101 mL/min (>60); Globulin 3.8 g/dL (2.2-4.2); Glucose 144 mg/dL (74-106); Potassium 4.4 mmol/L (3.5-5.1); Protein, Total 7.4 g/dL (6.4-8.2); Sodium Level 136 mmol/L (136-145)
== END | disposition home or self-care (01) ==
LOC: MTLAB 07:51
PROVIDERS: PCP Family Medicine; Referring Provider Internal Medicine Rheumatology; Visit Provider Internal Medicine Rheumatology
DX: L40.59 Other psoriatic arthropathy (principal); L40.8 Other psoriasis; Z79.899 Other long term (current) drug therapy
CPT/HCPCS: 36415; 80053; 85025

== ENCOUNTER → 2023-10-30 | Outpatient (CLI) | payer OTHER, SELFPAY ==
--- OUTSIDE RECORDS SUMMARY | 2023-10-30 07:44 | XMS RPT_ITS | CCD ---
Author Name Unknown Address [address] [place] [address] Organization [facility] Care Team Providers Care Binding Stitcher Name Role Phone Kimber VARGAS MPH, Du [...] [PINEAPPLE] Propensity to adverse reactions 3 Other [facility] Medications Current Medications Medication Drug Class(es) [...] mm[Hg] Du Quiroga MD MPH Work Phone: [facility] 10-02-2023 10:44-0500 Heart rate 96 /min Du Quiroga MD MPH Work Phone: [facility] 10-02-2023 10:44-0500 SaO2% (BldA) [Mass fraction] 95 % Du Quiroga MD MPH Work Phone: [facility] 10-02-2023 10:44-0500 Systolic blood pressure 132 mm[Hg] Du Quiroga MD MPH Work Phone: [facility] 10-02-2023 10:19-0500 Body mass index (BMI) [Ratio] 26.99 kg/m2 Du Quiroga MD MPH Work Phone: [facility] 10-02-2023 10:19-0500 Body weight 103.24 kg Du Quiroga MD MPH Work Phone: [facility] 05-29-2023 07:52-0400 Body mass index (BMI) [Ratio] 26.44 kg/m2 Du Quiroga MD MPH Work Phone: [facility] 05-29-2023 07:52-0400 Body weight 101.15 kg Du Quiroga MD MPH Work Phone: [facility] 05-29-2023 07:52-0400 Diastolic blood pressure 80 mm[Hg] Du Quiroga MD MPH Work Phone: [facility] 05-29-2023 07:52-0400 Heart rate 91 /min Du Quiroga MD MPH Work Phone: [facility] 05-29-2023 07:52-0400 SaO2% (BldA) [Mass fraction] 94 % Du Quiroga MD MPH Work Phone: [facility] 05-29-2023 07:52-0400 Systolic blood pressure 150 mm[Hg] Du Quiroga MD MPH Work Phone: [facility] 04-17-2023 08:17-0400 Body height 195.6 cm Du Quiroga MD MPH Work Phone: [facility] 04-17-2023 08:17-0400 Body mass index (BMI) [Ratio] 26.78 kg/m2 uD Quiroga MD MPH Work Phone: [facility] 04-17-2023 08:17-0400 Body weight 102.42 kg Du Quiroga MD MPH Work Phone: [facility] 04-17-2023 08:17-0400 Diastolic blood pressure 98 mm[Hg] Du Quiroga MD MPH Work Phone: [facility] 04-17-2023 08:17-0400 Heart rate 113 /min Du Quiroga MD MPH Work Phone: [facility] Encounters Encounter Date Encounter Type Care Provider Facility Start: 10-02-2023 End: 10-02-2023 ambulatory DU QUIROGA [facility] Ambulatory Start: 10-02-2023 End: 10-02-2023 Office outpatient visit 15 minutes Du Quiroga MD MPH Work Phone: [facility] Plan of Treatment Date Care Activity Detail Author Start: 04-01-2024 End: 04-01-2024 Patient encounter procedure 04/01/2024 8:20 AM EDT Office Visit [facility] [address] [place] [id number] Du Quiroga MD MPH [address] [facility], [address] [place] [address] [facility] Start: 01-18-2024 End: 10-02-2024 Lipid 1996 panel - Serum or Plasma Lipid Panel Lab Routine Lipid screening Expected: 01/18/2024 (Approximate), Expires: 10/02/2024 [facility] Service Area Work Phone: Payers Date Payer Category Payer Unknown [employer] ARE [id number] 2022-Present [address] [place] [address] [id number] 2022 Unknown [id number] 1960 Unknown [id number] 1960 Unknown [id number] 1960 Unknown [id number] Social History Date Type Detail Facility Start: 04-17-2023 End: 05-29-2023 Tobacco smoking status NHIS Smokes tobacco daily [facility] Work Phone: [facility] Start: 04-17-2023 End: 05-29-2023 Tobacco use and exposure Smokeless tobacco non-user [facility] Work Phone: Start: 04-17-2023 End: 10-02-2023 Alcohol intake Current drinker of alcohol (finding) [facility] Work Phone: Start: 04-17-2023 End: 05-29-2023 Alcohol intake [facility] Work Phone: Start: 04-17-2023 End: 05-29-2023 Tobacco use panel [facility] Work Phone: Start: 04-17-2023 Alcohol Comment every night [facility] Work Phone: Start: 1960 Sex Assigned At [facility] Start: 04-07-2023 End: 10-02-2023 Exposure to SARS-CoV-2 (event) Not sure [facility] History of Present illness Narrative 10-02-2023 Du Quiroga MD MPH - 10/02/2023 10:20 AM EST Note Date & Type Note Facility 10-02-2023 History of Present illness Narrative Subjective Patient ID: Isidro Ovalle is a 63 y.o. 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 Last time he took prednisone about a [...] Quiroga MD MPH documented in this encounter [facility] Work Phone: Evaluation note Note Date & Type Note Facility documented in this encounter [facility] Work Phone: Evaluation note Note Date & Type Note Facility documented in this encounter [facility] Work Phone: Evaluation note Note Date & Type Note Facility documented in this encounter [facility] Work Phone: Summary Purpose Family History [...] Care Teams (unrecognized sec tion and content) Binding Stitcher Relationship Specialty Start Date End Date Du Quiroga MD MPH [address] [facility], [address] [place] [address] PCP - General Family Medicine 04/14/23 Binding Stitcher Relationship Specialty Start Date End Date Du Quiroga MD MPH [address] [facility] [address] [place] [address] PCP - General Family Medicine 04/14/23 (unrecognized [...] BE BASED ON THE PRIMARY CLINICAL RECORDS. [facility] [employer] [facility]. provides no warranty or guarantee of the accuracy or completeness of information in this document.
[2023-11-02 14:08] LABS: QNTFERON TB Mitogen Value > 10.00 IU/mL (.); QNTFERON TB Nil Value 0.05 IU/mL (.); QNTFERON TB1+ Ag Value 0.05 IU/mL (.); QNTFERON TB2+ Ag Value 0.09 IU/mL (.); QNTIFERON TB Positive Criteria Negative (Negative)
== END | disposition home or self-care (01) ==
PROVIDERS: PCP Family Medicine; Referring Provider Internal Medicine Rheumatology; Visit Provider Internal Medicine Rheumatology
DX: L40.59 Other psoriatic arthropathy (principal); Z79.899 Other long term (current) drug therapy
CPT/HCPCS: 36415; 86480

== ENCOUNTER → 2024-01-27 | Outpatient (CLI) | payer OTHER, SELFPAY ==
[2024-01-27 10:28] LABS: Absolute Lymphocyte Count 2.14 X10^3/uL (0.83-4.51); Absolute Neutrophil Count 2.9 X10^3/uL (2.0-7.7); Basophil# 0.05 X10^3/uL; Basophil% 0.8 % (0-1); Eosinophil# 0.19 X10^3/uL; Eosinophils% 3.2 % (0-5); Hematocrit 48.9 % (40-54); Hemoglobin 16.1 g/dL (13.0-16.5); Lymphocyte # 2.14 X10^3/ul (0.83-4.51); Lymphocyte % 36.1 % (19-41); Mean Corp Hgb Conc 32.9 g/dL (32-36); Mean Corpuscular Hgb 32.3 pg (27.0-32.0); Mean Corpuscular Volume 98.2 fL (80-94); Mean Platelet Vol. 10.5 fl (6.2-12.0); Monocyte% 10.1 % (0-10); NRBC Flagged by Analyzer 0 % (0-5); Neutrophil # 2.93 X10^3/uL (2.7-7.7); Neutrophil % 49.5 % (47-70); Platelet Count 249 K/mm3 (150-450); RBC Distribution Width CV 12.9 % (11.6-14.6); RBC Distribution Width SD 46.7 fl (35.1-43.9); Red Blood Count 4.98 M/mm3 (4.6-6.2); White Blood Count 5.9 K/mm3 (4.4-11.0)
[2024-01-27 10:37] LABS: ALB/GLOB Ratio 0.9 RATIO (0.9-2.4); AST(SGOT) 25 U/L (15-37); Alanine Aminotransfer ALT/SGPT 47 U/L (16-61); Albumin, Serum 3.6 g/dL (3.2-5.0); Alkaline Phosphatase 91 U/L (45-117); Anion Gap 5 (5-15); BUN 12 mg/dL (7-18); BUN/Creat Ratio 12.8 RATIO (10-20); Calcium,Total 8.9 mg/dL (8.5-10.1); Chloride 102 mmol/L (98-107); Cholesterol 220 mg/dL (200); Creatinine, Serum 0.94 mg/dL (0.70-1.30); EST Glomerular Filtration Rate 87 mL/min (>60); Est Glom Filt Rate - Afr Amer 105 mL/min (>60); Globulin 3.8 g/dL (2.2-4.2); Glucose 133 mg/dL (74-106); High Density Lipoprotein 74 mg/dL; Potassium 4.4 mmol/L (3.5-5.1); Protein, Total 7.4 g/dL (6.4-8.2); Sodium Level 134 mmol/L (136-145); T4 Free Direct 0.87 ng/dL (0.76-1.46); Thyroid Stim Hormone (TSH) 0.94 uIU/mL (0.358-3.74); Triglycerides 93 mg/dL; Very Low Density Lipoprotein 19 mg/dL (5-40)
== END | disposition home or self-care (01) ==
PROVIDERS: PCP Family Medicine; Referring Provider Internal Medicine Rheumatology; Visit Provider Internal Medicine Rheumatology
DX: I10 Essential (primary) hypertension (principal); L40.59 Other psoriatic arthropathy; R00.0 Tachycardia, unspecified; Z13.220 Encounter for screening for lipoid disorders; Z79.899 Other long term (current) drug therapy
CPT/HCPCS: 36415; 80053; 80061; 84439; 84443; 85025

== ENCOUNTER → 2024-04-25 | Outpatient (CLI) | payer OTHER, SELFPAY ==
[2024-04-25 10:12] LABS: Absolute Lymphocyte Count 1.75 X10^3/uL (0.83-4.51); Absolute Neutrophil Count 2.7 X10^3/uL (2.0-7.7); Basophil# 0.04 X10^3/uL; Basophil% 0.7 % (0-1); Eosinophil# 0.16 X10^3/uL; Hemoglobin 16.7 g/dL (13.0-16.5); Lymphocyte # 1.75 X10^3/ul (0.83-4.51); Lymphocyte % 32.3 % (19-41); Mean Corp Hgb Conc 33.4 g/dL (32-36); Mean Corpuscular Hgb 32.8 pg (27.0-32.0); Mean Corpuscular Volume 98.2 fL (80-94); Mean Platelet Vol. 9.9 fl (6.2-12.0); Monocyte# 0.72 X10^3/uL; Monocyte% 13.3 % (0-10); NRBC Flagged by Analyzer 0 % (0-5); Neutrophil # 2.73 X10^3/uL (2.7-7.7); Neutrophil % 50.3 % (47-70); Platelet Count 294 K/mm3 (150-450); RBC Distribution Width CV 12.5 % (11.6-14.6); RBC Distribution Width SD 45.6 fl (35.1-43.9); Red Blood Count 5.09 M/mm3 (4.6-6.2); White Blood Count 5.4 K/mm3 (4.4-11.0)
[2024-04-25 11:06] LABS: ALB/GLOB Ratio 0.9 RATIO (0.9-2.4); AST(SGOT) 38 U/L (15-37); Alanine Aminotransfer ALT/SGPT 47 U/L (16-61); Albumin, Serum 3.7 g/dL (3.2-5.0); Alkaline Phosphatase 110 U/L (45-117); Anion Gap 8 (5-15); BUN 6 mg/dL (7-18); BUN/Creat Ratio 6.5 RATIO (10-20); Calcium,Total 9.4 mg/dL (8.5-10.1); Chloride 100 mmol/L (98-107); Creatinine, Serum 0.93 mg/dL (0.70-1.30); EST Glomerular Filtration Rate 88 mL/min (>60); Est Glom Filt Rate - Afr Amer 106 mL/min (>60); Globulin 3.9 g/dL (2.2-4.2); Glucose 162 mg/dL (74-106); Potassium 4.1 mmol/L (3.5-5.1); Protein, Total 7.6 g/dL (6.4-8.2); Sodium Level 133 mmol/L (136-145)
== END | disposition home or self-care (01) ==
LOC: MTLAB 07:30
PROVIDERS: PCP Family Medicine; Referring Provider Internal Medicine Rheumatology; Visit Provider Internal Medicine Rheumatology
DX: L40.59 Other psoriatic arthropathy (principal); Z79.899 Other long term (current) drug therapy
CPT/HCPCS: 36415; 80053; 85025

== ENCOUNTER → 2024-07-15 | Outpatient (CLI) | payer OTHER, SELFPAY ==
[2024-07-15 10:39] LABS: Absolute Lymphocyte Count 1.65 X10^3/uL (0.83-4.51); Absolute Neutrophil Count 2.5 X10^3/uL (2.0-7.7); Basophil# 0.02 X10^3/uL; Basophil% 0.4 % (0-1); Eosinophil# 0.15 X10^3/uL; Hematocrit 49.5 % (40-54); Hemoglobin 16.3 g/dL (13.0-16.5); Lymphocyte # 1.65 X10^3/ul (0.83-4.51); Lymphocyte % 33.3 % (19-41); Mean Corp Hgb Conc 32.9 g/dL (32-36); Mean Corpuscular Hgb 32.4 pg (27.0-32.0); Mean Corpuscular Volume 98.4 fL (80-94); Mean Platelet Vol. 10.4 fl (6.2-12.0); Monocyte# 0.59 X10^3/uL; Monocyte% 11.9 % (0-10); NRBC Flagged by Analyzer 0 % (0-5); Neutrophil # 2.53 X10^3/uL (2.7-7.7); Platelet Count 265 K/mm3 (150-450); RBC Distribution Width CV 13.1 % (11.6-14.6); RBC Distribution Width SD 47.8 fl (35.1-43.9); Red Blood Count 5.03 M/mm3 (4.6-6.2)
[2024-07-15 11:26] LABS: ALB/GLOB Ratio 0.9 RATIO (0.9-2.4); AST(SGOT) 26 U/L (15-37); Alanine Aminotransfer ALT/SGPT 43 U/L (16-61); Albumin, Serum 3.6 g/dL (3.2-5.0); Alkaline Phosphatase 98 U/L (45-117); Anion Gap 5 (5-15); BUN 9 mg/dL (7-18); BUN/Creat Ratio 9.9 RATIO (10-20); Calcium,Total 9.3 mg/dL (8.5-10.1); Chloride 101 mmol/L (98-107); Creatinine, Serum 0.91 mg/dL (0.70-1.30); EST Glomerular Filtration Rate 89 mL/min (>60); Est Glom Filt Rate - Afr Amer 108 mL/min (>60); Globulin 3.8 g/dL (2.2-4.2); Glucose 156 mg/dL (74-106); Protein, Total 7.4 g/dL (6.4-8.2); Sodium Level 136 mmol/L (136-145)
== END | disposition home or self-care (01) ==
LOC: MTLAB 08:54
PROVIDERS: PCP Family Medicine; Referring Provider Internal Medicine Rheumatology; Visit Provider Internal Medicine Rheumatology
DX: L40.59 Other psoriatic arthropathy (principal); Z79.899 Other long term (current) drug therapy
CPT/HCPCS: 36415; 80053; 85025

== ENCOUNTER → 2024-07-29 | Outpatient (CLI) | payer OTHER, SELFPAY ==
[2024-07-29 08:13] LABS: Bacteria 0 SEEN /hpf (None Seen); Mucous, Urine 0 SEEN /hpf (<or=2+); Red Blood Cells-Urine 0 SEEN /hpf (0-5); Squamous Epithelial Cells - UA 0 SEEN /hpf (0-5); White Blood Cells 0 SEEN /hpf (0-5)
[2024-07-29 10:38] LABS: Color, Urine Yellow (Yellow); Glucose, Dipstick Normal (Normal); Ketone-Dipstick Negative (Negative); Leukocyte Esterase-Dipstick Negative /ul (Negative); Nitrite-Dipstick Negative (Negative); Occult Blood-Urine Negative /ul (Negative); Protein-Dipstick Negative (Negative); Urine Bilirubin Dipstick Negative (Negative); Urine Clarity Clear (Clear); Urine Urobilinogen Normal (Normal)
[2024-07-29 10:41] LABS: Hemoglobin A1c 5.6 % (3.8-5.6)
[2024-07-29 10:56] LABS: Cholesterol 199 mg/dL (200); High Density Lipoprotein 82 mg/dL; Magnesium 2.5 mg/dL (1.6-2.6); Thyroid Stim Hormone (TSH) 0.852 uIU/mL (0.358-3.740); Triglycerides 61 mg/dL; Very Low Density Lipoprotein 12 mg/dL (5-40)
== END | disposition home or self-care (01) ==
LOC: MTLAB 08:10
PROVIDERS: PCP Family Medicine; Referring Provider Family Medicine; Visit Provider Family Medicine
DX: I10 Essential (primary) hypertension (principal); R73.09 Other abnormal glucose
CPT/HCPCS: 36415; 80061; 81001; 83036; 83735; 84443

== ENCOUNTER → 2024-10-17 | Outpatient (CLI) | payer OTHER, SELFPAY ==
[2024-10-17 10:18] LABS: Absolute Lymphocyte Count 1.76 X10^3/uL (0.83-4.51); Absolute Neutrophil Count 2.7 X10^3/uL (2.0-7.7); Basophil# 0.05 X10^3/uL; Basophil% 0.9 % (0-1); Eosinophil# 0.15 X10^3/uL; Eosinophils% 2.8 % (0-5); Hematocrit 47.5 % (40-54); Hemoglobin 15.8 g/dL (13.0-16.5); Lymphocyte # 1.76 X10^3/ul (0.83-4.51); Lymphocyte % 33.3 % (19-41); Mean Corp Hgb Conc 33.3 g/dL (32-36); Mean Corpuscular Volume 96.2 fL (80-94); Mean Platelet Vol. 10.2 fl (6.2-12.0); Monocyte# 0.61 X10^3/uL; Monocyte% 11.5 % (0-10); NRBC Flagged by Analyzer 0 % (0-5); Neutrophil # 2.71 X10^3/uL (2.7-7.7); Neutrophil % 51.3 % (47-70); Platelet Count 261 K/mm3 (150-450); RBC Distribution Width CV 12.5 % (11.6-14.6); Red Blood Count 4.94 M/mm3 (4.6-6.2); White Blood Count 5.3 K/mm3 (4.4-11.0)
[2024-10-17 10:28] LABS: AST(SGOT) 18 U/L (15-37); Alanine Aminotransfer ALT/SGPT 37 U/L (16-61); Albumin, Serum 3.6 g/dL (3.2-5.0); Alkaline Phosphatase 83 U/L (45-117); Anion Gap 5 (5-15); BUN 8 mg/dL (7-18); BUN/Creat Ratio 8.5 RATIO (10-20); Calcium,Total 8.9 mg/dL (8.5-10.1); Chloride 102 mmol/L (98-107); Creatinine, Serum 0.94 mg/dL (0.70-1.30); EST Glomerular Filtration Rate 87 mL/min (>60); Est Glom Filt Rate - Afr Amer 105 mL/min (>60); Globulin 3.7 g/dL (2.2-4.2); Glucose 149 mg/dL (74-106); Potassium 4.6 mmol/L (3.5-5.1); Protein, Total 7.3 g/dL (6.4-8.2); Sodium Level 134 mmol/L (136-145)
== END | disposition home or self-care (01) ==
PROVIDERS: PCP Family Medicine; Referring Provider Internal Medicine Rheumatology; Visit Provider Internal Medicine Rheumatology
DX: L40.59 Other psoriatic arthropathy (principal); Z79.899 Other long term (current) drug therapy
CPT/HCPCS: 36415; 80053; 85025

== ENCOUNTER → 2025-01-05 | Outpatient (CLI) | payer OTHER, SELFPAY ==
[2025-01-05 08:09] LABS: Bacteria 0 SEEN /hpf (None Seen); Mucous, Urine 0 SEEN /hpf (<or=2+); Squamous Epithelial Cells - UA 0 SEEN /hpf (0-5); White Blood Cells 0 SEEN /hpf (0-5)
[2025-01-05 10:49] LABS: Color, Urine Yellow (Yellow); Glucose, Dipstick Normal (Normal); Ketone-Dipstick Negative (Negative); Leukocyte Esterase-Dipstick Negative /ul (Negative); Nitrite-Dipstick Negative (Negative); Occult Blood-Urine Negative /ul (Negative); Protein-Dipstick Negative (Negative); Specific Gravity, Urine 1.015 (1.002-1.030); Urine Bilirubin Dipstick Negative (Negative); Urine Clarity Clear (Clear); Urine Urobilinogen Normal (Normal)
[2025-01-05 11:02] LABS: Absolute Lymphocyte Count 1.93 X10^3/uL (0.83-4.51); Absolute Neutrophil Count 2.8 X10^3/uL (2.0-7.7); Basophil# 0.04 X10^3/uL; Basophil% 0.7 % (0-1); Eosinophil# 0.21 X10^3/uL; Eosinophils% 3.7 % (0-5); Hemoglobin 16.2 g/dL (13.0-16.5); Lymphocyte # 1.93 X10^3/ul (0.83-4.51); Mean Corp Hgb Conc 34.5 g/dL (32-36); Mean Corpuscular Hgb 33.3 pg (27.0-32.0); Mean Corpuscular Volume 96.7 fL (80-94); Monocyte# 0.69 X10^3/uL; Monocyte% 12.2 % (0-10); NRBC Flagged by Analyzer 0 % (0-5); Neutrophil # 2.78 X10^3/uL (2.7-7.7); Platelet Count 273 K/mm3 (150-450); RBC Distribution Width CV 13.5 % (11.6-14.6); RBC Distribution Width SD 48.2 fl (35.1-43.9); Red Blood Count 4.86 M/mm3 (4.6-6.2); White Blood Count 5.7 K/mm3 (4.4-11.0)
[2025-01-05 11:14] LABS: Red Blood Cells-Urine 0 SEEN /hpf (0-5)
[2025-01-05 11:31] LABS: ALB/GLOB Ratio 1.3 RATIO (0.9-2.4); AST(SGOT) 21 U/L (<=37); Alanine Aminotransfer ALT/SGPT 24 U/L (<=46); Albumin, Serum 4.1 g/dL (3.4-4.8); Alkaline Phosphatase 96 U/L (40-129); Anion Gap 11 (5-15); BUN 9 mg/dL (4-19); BUN/Creat Ratio 11.2 RATIO (10-20); Calcium,Total 9.4 mg/dL (7.6-11.0); Carbon Dioxide 22.6 mmol/L (21.0-32.0); Chloride 101 mmol/L (98-108); Creatinine, Serum 0.76 mg/dL (0.70-1.20); EST Glomerular Filtration Rate 101 (>60); Globulin 3.1 g/dL (2.2-4.2); Glucose 110 mg/dL (70-99); Potassium 4.3 mmol/L (3.3-5.1); Protein, Total 7.2 g/dL (5.9-8.4); Sodium Level 134 mmol/L (133-145); Total Bilirubin 0.62 mg/dL (0.00-1.30)
[2025-01-05 11:43] LABS: Hemoglobin A1c 5.6 % (<=5.6)
[2025-01-05 12:05] LABS: Cholesterol 196 mg/dL (<=200); High Density Lipoprotein 72 mg/dL; Low Density Lipoprotein Calc. 108 mg/dL; Triglycerides 80 mg/dL; Very Low Density Lipoprotein 16 mg/dL (5-40); cholesterol:hdl ratio screen 2.71
== END | disposition home or self-care (01) ==
PROVIDERS: PCP Family Medicine; Referring Provider Family Medicine; Visit Provider Internal Medicine Rheumatology
DX: L40.59 Other psoriatic arthropathy (principal); Z79.899 Other long term (current) drug therapy
CPT/HCPCS: 36415; 80053; 80061; 81001; 83036; 85025

== ENCOUNTER → 2025-03-10 | Outpatient (CLI) | payer OTHER, SELFPAY ==
[2025-03-10 11:18] LABS: PSA,Total - Annual Screen 0.85 ng/mL (0.02-4.00)
== END | disposition home or self-care (01) ==
LOC: MFPLAB 09:11
PROVIDERS: PCP Family Medicine; Referring Provider Family Medicine; Visit Provider Family Medicine
DX: Z12.5 Encounter for screening for malignant neoplasm of prostate (principal)
CPT/HCPCS: 36415; 84153; G0103

== ENCOUNTER → 2025-03-27 | Outpatient (CLI) | payer OTHER, SELFPAY ==
[2025-03-27 10:01] LABS: Absolute Lymphocyte Count 1.97 X10^3/uL (0.83-4.51); Absolute Neutrophil Count 2.6 X10^3/uL (2.0-7.7); Basophil# 0.05 X10^3/uL; Basophil% 0.9 % (0-1); Eosinophil# 0.24 X10^3/uL; Eosinophils% 4.3 % (0-5); Hematocrit 47.3 % (40-54); Hemoglobin 16.5 g/dL (13.0-16.5); Lymphocyte # 1.97 X10^3/ul (0.83-4.51); Lymphocyte % 35.5 % (19-41); Mean Corp Hgb Conc 34.9 g/dL (32-36); Mean Corpuscular Hgb 33.1 pg (27.0-32.0); Mean Platelet Vol. 10.1 fl (6.2-12.0); Monocyte# 0.64 X10^3/uL; Monocyte% 11.5 % (0-10); NRBC Flagged by Analyzer 0 % (0-5); Neutrophil # 2.63 X10^3/uL (2.7-7.7); Neutrophil % 47.4 % (47-70); Platelet Count 279 K/mm3 (150-450); RBC Distribution Width CV 12.6 % (11.6-14.6); RBC Distribution Width SD 43.5 fl (35.1-43.9); Red Blood Count 4.98 M/mm3 (4.6-6.2); White Blood Count 5.6 K/mm3 (4.4-11.0)
[2025-03-27 10:22] LABS: ALB/GLOB Ratio 1.4 RATIO (0.9-2.4); AST(SGOT) 27 U/L (<=37); Alanine Aminotransfer ALT/SGPT 31 U/L (<=46); Albumin, Serum 4.3 g/dL (3.4-4.8); Alkaline Phosphatase 89 U/L (40-129); Anion Gap 11 (5-15); BUN 7 mg/dL (4-19); BUN/Creat Ratio 8.2 RATIO (10-20); Calcium,Total 9.3 mg/dL (7.6-11.0); Carbon Dioxide 24.4 mmol/L (21.0-32.0); Chloride 99 mmol/L (98-108); Creatinine, Serum 0.87 mg/dL (0.70-1.20); EST Glomerular Filtration Rate 97 (>60); Glucose 168 mg/dL (70-99); Potassium 4.5 mmol/L (3.3-5.1); Protein, Total 7.3 g/dL (5.9-8.4); Sodium Level 135 mmol/L (133-145)
== END | disposition home or self-care (01) ==
LOC: MTLAB 08:35
PROVIDERS: PCP Family Medicine; Referring Provider Internal Medicine Rheumatology; Visit Provider Internal Medicine Rheumatology
DX: L40.59 Other psoriatic arthropathy (principal); Z79.899 Other long term (current) drug therapy
CPT/HCPCS: 36415; 80053; 85025

== ENCOUNTER → 2025-06-16 | Outpatient (CLI) | payer OTHER, SELFPAY ==
--- NOTE | 2025-06-16 06:17 | CT_ITS ---
PROCEDURE: LOW DOSE CT LUNG SCREENING 06/16/2025 REASON FOR EXAM: TOBACCO DEPENDENCE, SMOKER > 35 YRS Patient has smoked 1.5 packs per day for 45 years. TECHNIQUE: Procedure Code: CTLUNGSCREEN Modality: CT Procedure: LOW DOSE CT LUNG SCREENING Coronal and Sagittal reconstruction series were provided. One or more dose reduction techniques were used (e.g., Automated exposure control, adjustment of the mA and/or kV according to patient size, use of iterative reconstruction technique). REFERENCE LINK: [employer] Lung-RADS RADIATION DOSE SUMMARY: CTDlvol: 4.02 mGy DLP: 159.54 mGycm COMPARISON: None4 FINDINGS: PULMONARY NODULES: (Only nodules >3mm are reported) Nodules described below are on series 1 unless otherwise specified. Pulmonary Nodules: 4 mm calcific granuloma in the peripheral lateral aspect of the left upper lobe as seen on axial image number 80. 4 mm calcified granuloma in the left lower lobe as seen on axial image number 146 calcified granuloma in the anterior aspect of the medial right upper lobe as seen on axial image number 154. Calcified granuloma in the lingular segment of the left upper lobe as well as in the right lower lobe. No suspicious pulmonary nodules seen. Hardware:None Lymph Nodes:There is a 1.3 cm lymph node in the anterior mediastinum. Benign- appearing lymph nodes are seen in the precarinal space. Heart and Vasculature:The heart is nonenlarged. Coronary Artery Calcifications: Present Lungs and Airways: No significant emphysematous changes. Pleura:No pleural effusion. Upper Abdomen:Unremarkable Bones:Degenerative changes of the thoracic spine. CT/Low Dose CT Lung Screening IMPRESSION: Scattered calcified granulomas. Coronary artery calcification (CAC) is is present Lung-RADS Category: 2 BENIGN (BASED ON IMAGING FEATURES OR INDOLENT BEHAVIOR). RECOMMEND 12-MONTH SCREENING LDCT. Other Significant Findings: Reading Location: [facility]
--- OUTSIDE RECORDS SUMMARY | 2025-06-16 06:19 | XMS RPT_ITS | CCD ---
Author Organization [facility] Inform [facility] Care Team Providers Care Driver'S License Examiner Name Role Phone Cesar VARGAS MPH, Du Rios Primary Care Pro vider MALLAPAREDDI, DU NAG S Primary Care Unavail able GONZALO ROGEL Attending Unavailable MALLAPAREDDI, DU NAG S Attending Unavail able MALLAPAREDDI, DU NAG S Primary Care Unavail able MALLAPAREDDI, DU NAG S Attending Unavail able MALLAPAREDDI, DU NAG S Primary Care Unavail able MALLAPAREDDI, DU NAG S Attending Unavail able MALLAPAREDDI, DU NAG S Primary Care Unavail able MALLAPAREDDI, DU NAG S Attending Unavail able MALLAPAREDDI, DU NAG S Primary Care Unavail able MALLAPAREDDI, DU NAG S Attending Unavail able MALLAPAREDDI, DU NAG S Primary Care Unavail able Fior Coats MD Primary Care Provider Dr. Fior Coats MD Primary Care Provider [phone] Dr. Megan Mosqueda MD Attending Provider Dr. Megan Mosqueda MD Referring Provider Dr. Fior Coats MD Referring Provider ROD LEUNG Attending Unavailable FIOR COATS Primary Care Unavailable TIKI ATKINSON Referring Unavailable TIKI ATKINSON Attending Unavailable FIOR COATS Referring Unavailable FIOR COATS Primary Care Unavailable Dr. Fior Coats MD Primary Care Provider Dr. Megan Mosqueda MD Attending Provider Dr. Fior Coats MD Attending Provider Dr. Megan Mosqueda MD Referring Provider Fior Coats Primary Care Unavailable Fior Coats Attending Unavailable Fior Coats Referring Unavailable Megan Mosqueda Attending Unavailable Megan Mosqueda Referring Unavailable Fior Coats Primary Care Unavailable Fior Coats Referring Unavailable Fior Coats Primary Care Unavailable Megan Mosqueda Attending Unavailable Fior Coats Primary Care Unavailable Fior Coats Attending Unavailable Fior Coats Referring Unavailable Fior Coats Attending Unavailable Fior Coats Referring Unavailable Fior Coats Primary Care Unavailable Fior Coats Attending Unavailable Fior Coats Referring Unavailable Fior Coats Primary Care Unavailable Megan Mosqueda Referring Unavailable Fior Coats Primary Care Unavailable Megan Mosqueda Attending Unavailable Megan Mosqueda Attending Unavailable Fior Coats Primary Care Unavailable Megan Mosqueda Referring Unavailable Allergies Allergy Classification Reported Allergen(s) Allergy Type Date of Onset Reaction(s) Facility (9 sources) [facility]; Translations: [UMANGAPPMARYLOU] Propensity to adverse reactions 3 Other [facility] Medications Current Medications Medication Drug Class(es) Dates Sig (Normalized) Sig (Original) acetaminophen 325 mg / HYDROcodone bitartrate 5 mg oral tablet (4 sources) Opioid Agonist Start: 05-27-2024 End: 06-10-2024 take 1 tablet by mouth every six hours for pain HYDROcodone-acetami nophen ([place]) 5-325 mg tablet Indications: Herpes zoster without complication Take 1 tablet by mouth every 6 hours if needed for severe pain (7 - 10) for up to 7 days. 10 tablet 06/03/2024 06/10/2024 Active Start: 01-21-2010 End: 12-02-2024 hydrocodone bit/acetaminophe n(VICODIN 5 MG-500 MG TAB) Take 1-2 tablet's) every six(6) hours as needed for pain. 0 01/21/2010 12/02/2024 Discontinued (Other) amLODIPine 10 mg oral tablet (13 sources) Dihydropyridine Calcium Channel Bouchra Start: 06-03-2024 End: 05-29-2025 take 1 tablet by mouth once daily amLODIPine (NORVASC) 10 mg tablet Take 10 mg by mouth once daily. 06/03/2024 05/29/2025 Active Start: 04-17-2023 End: 09-26-2024 take 1 tablet by mouth once daily amLODIPine (Norvasc) 5 mg tablet Indications: Primary hypertension , Tachycardia Take 1 tablet (5 mg) by mouth once daily. 90 tablet 3 10/02/2023 06/03/2024 Discontinued (Reorder) 24 hr carvedilol phosphate 20 mg extended release oral capsule (5 sources) alpha-Adrenergic Bouchra, beta-Adrenergic Bouchra Start: 05-06-2024 End: 05-06-2025 take 1 capsule by mouth once daily carvedilol (COREG CR) 20 mg 24 hr capsule Take 20 mg by mouth once daily. 05/06/2024 12/02/2024 Discontinued (Discontinued by Patient) Start: 05-06-2024 End: 05-06-2024 take 1 tablet by mouth twice daily carvedilol (Coreg) 6.25 mg tablet Indications: Primary hypertension Take 1 tablet (6.25 mg) by mouth 2 times a day. 60 tablet 11 05/06/2024 05/06/2024 Discontinued (Therapy completed) enalapril maleate 5 mg oral tablet (1 source) Angiotensin Converting Enzyme Inhibitor Start: 01-22-2010 End: 12-02-2024 ENALAPRIL MALEATE 5 MG TAB Take one(1) tablet daily. 0 01/22/2010 12/02/2024 Discontinued (Other) folic acid 1 mg oral tablet (10 sources) take 1 tablet by mouth twice daily folic acid 1 mg tablet Take 1 mg by mouth two times a day. Active gabapentin 300 mg oral capsule (4 sources) Anti-epileptic Agent Start: 05-27-2024 End: 08-02-2024 take 2 capsules by mouth three times daily as needed for pain gabapentin (Neurontin) 300 mg capsule Indications: Herpes zoster without complication Take 2 capsules (600 mg) by mouth 3 times a day as needed (moderate pain). 120 capsule 1 06/03/2024 08/02/2024 Active Start: 05-25-2024 End: 05-27-2024 take 1 capsule by mouth three times daily gabapentin (Neurontin) 300 mg capsule Indications: Herpes zoster without complication Take 1 capsule (300 mg) by mouth 3 times a day for 5 days. 15 capsule 05/25/2024 05/27/2024 Discontinued (Reorder) 1 ml guselkumab 100 mg/ml auto-injector (8 sources) Interleukin-23 Antagonist Start: 09-22-2023 guselkumab (TREMFYA) 100 mg/mL auto-injector Inject 100 mg subcutaneously every 8 weeks. 09/22/2023 Active methotrexate 2.5 mg oral tablet (10 sources) Folate Analog Metabolic Inhibitor take 1 tablet by mouth every week methotrexate 2.5 mg tablet Take 2.5 mg by mouth. Five tablets once weekly Active methylPREDNISolone 4 mg oral tablet (2 sources) Corticosteroid Start: 05-21-2024 methylPREDNISolone (Medrol Dospak) 4 mg tablets Indications: Herpes zoster without complication 1 kit orally as directed on package instructions x 6 days. Take with food. 21 tablet 05/21/2024 Active 24 hr metoprolol succinate 100 mg extended release oral tablet (11 sources) beta-Adrenergic Bouchra Start: 04-01-2024 End: 04-01-2025 take 1 tablet by mouth once daily metoprolol succinate XL (Toprol-XL) 100 mg 24 hr tablet Indications: Primary hypertension , Tachycardia Take 1 tablet (100 mg) by mouth once daily. Do not crush or chew. 90 tablet 3 04/01/2024 06/03/2024 Discontinued (Therapy completed) Start: 05-29-2023 End: 10-01-2024 take 1 tablet by mouth once daily metoprolol succinate XL (Toprol-XL) 50 mg 24 hr tablet Indications: Primary hypertension , Tachycardia Take 1 tablet (50 mg) by mouth once daily. Do not crush or chew. 90 tablet 3 10/02/2023 04/01/2024 Discontinued (Reorder) Start: 01-22-2010 End: 12-02-2024 take 1 tablet by mouth once daily metoprolol succinate XL (Toprol-XL) 25 mg 24 hr tablet Indications: Primary hypertension , Tachycardia Take 1 tablet (25 mg) by mouth once daily. Do not crush or chew. 60 tablet 5 04/17/2023 05/29/2023 Discontinued (Reorder) polyethylene glycol 3350 927950 mg / potassium chloride 2970 mg / sodium bicarbonate 6740 mg / sodium chloride 5860 mg / sodium sulfate 25065 mg powder for oral solution (1 source) Osmotic Laxative Start: 12-02-2024 End: 12-02-2024 peg 3350-Electrolytes (GOLYTELY) 236-22.74-6.74 -5.86 gram suspension Indications: Screen for colon cancer Take 4,000 mL by mouth one time only for 1 dose. Refer to printed prep instructions from your provider. 4000 mL 12/02/2024 12/02/2024 Active predniSONE 10 mg oral tablet (7 sources) take 1 tablet by mouth every twenty-four hours as needed predniSONE (Deltasone) 10 mg tablet Take 1 tablet (10 mg) by mouth once daily as needed. Active valACYclovir 1000 mg oral tablet (2 sources) Herpesvirus Nucleoside Analog DNA Polymerase Inhibitor, Herpes Simplex Virus Nucleoside Analog DNA Polymerase Inhibitor, Herpes Zoster Virus Nucleoside Analog DNA Polymerase Inhibitor Start: 05-21-2024 End: 06-03-2024 take 1 tablet by mouth three times daily valACYclovir (Valtrex) 1 gram tablet Indications: Herpes zoster without complication Take 1 tablet (1,000 mg) by mouth 3 times a day for 7 days. 21 tablet 05/21/2024 06/03/2024 Discontinued (Therapy completed) Completed/Discontinued Medications Medication Drug Class(es) Dates Sig (Normalized) Sig (Original) calcium chloride 0.0014 meq/ml / potassium chloride 0.004 meq/ml / sodium chloride 0.103 meq/ml / sodium lactate 0.028 meq/ml injectable solution (1 source) Start: 01-13-2025 End: 01-13-2025 take 30 mL intravenously every hour 30 mL/hr, INTRAVENOUS, CONTINUOUS, Starting on Thu01/13/25 at 0830, Until Thu01/13/25 at 0915, Preprocedure diphenhydrAMINE (1 source) Histamine-1 Receptor Antagonist Start: 01-13-2025 End: 01-13-2025 12.5-50 mg, INTRAVENOUS, DIRECTED, Starting on Thu01/13/25 at 0830, Until Thu01/13/25 at 1229, DOSING DIRECTED BY PHYSICIAN FOR PROCEDURAL SEDATION ONLY, Intraprocedure 1 ml fentaNYL 0.05 mg/ml injection (1 source) Opioid Agonist Start: 01-13-2025 End: 01-13-2025 25-100 mcg, INTRAVENOUS, DIRECTED, Starting on Thu01/13/25 at 0830, Until Thu01/13/25 at 1229, DOSING DIRECTED BY PHYSICIAN FOR PROCEDURAL SEDATION ONLY, Intraprocedure 5 ml midazolam 1 mg/ml injection (1 source) Benzodiazepine Start: 01-13-2025 End: 01-13-2025 1-5 mg, INTRAVENOUS, DIRECTED, Starting on Thu01/13/25 at 0830, Until Thu01/13/25 at 1229, DOSING DIRECTED BY PHYSICIAN FOR PROCEDURAL SEDATION ONLY, Intraprocedure 1 ml secukinumab 150 mg/ml prefilled syringe (3 sources) Interleukin-17A Antagonist End: 10-02-2023 secukinumab (Cosentyx) 150 mg/mL syringe Indications: psoriatic arthritis Inject 2 mL (300 mg) under the skin. Every 4 weeks 0 10/02/2023 Discontinued (Therapy completed) Problems Active Problems Problem Classification Problem Date Documented Date Episodic/Chronic Administrative/social admission (5 sources) Patient encounter status; Translations: [Persons encountering health services in other specified circumstances] 04-17-2023 Episodic Diabetes mellitus without complication (3 sources) Impaired fasting glycemia; Translations: [Impaired fasting glucose] Onset: 04-01-2024 04-01-2024 Episodic Diverticulosis and diverticulitis (10 sources) Diverticulitis of large intestine without perforation or abscess without bleeding; Translations: [Diverticulitis of colon (without mention of hemorrhage)] Onset: 01-21-2010 04-17-2023 Chronic Essential hypertension (16 sources) Essential hypertension; Translations: [Essential (primary) hypertension] Onset: 04-17-2023 04-17-2023 Chronic Other inflammatory condition of skin (7 sources) Psoriasis; Translations: [Psoriasis, unspecified] Onset: 04-17-2023 04-17-2023 Chronic Other inflammatory condition of skin (1 source) Other psoriatic arthropathy; Translations: [Other psoriatic arthropathy] Onset: 03-30-2025 Chronic Other screening for suspected conditions (not mental disorders or infectious disease) (5 sources) Encounter for screening for lipoid disorders; Translations: [Encounter for screening for malignant neoplasm of colon] Onset: 10-02-2023 Episodic Rheumatoid arthritis and related disease (7 sources) Rheumatoid arthritis of multiple joints; Translations: [Rheumatoid arthritis with rheumatoid factor of multiple sites without organ or systems involvement] Onset: 04-17-2023 04-17-2023 Chronic Substance-related disorders (1 source) Nicotine dependence, unspecified, uncomplicated; Translations: [Nicotine dependence, unspecified, uncomplicated] Onset: 06-02-2025 Chronic Viral infection (6 sources) Zoster without complications; Translations: [Herpes zoster without complication] Onset: 05-21-2024 Episodic Past or Other Problems Problem Classification Problem Date Documented Da te Episodic/Chronic Cardiac dysrhythmias (14 sources) Tachycardia; Translations: [Tachycardia, unspecified] Onset: 04-17-2023 04-17-2023 Episodic Unclassified (7 sources) Onset: 04-17-2023 04-17-2023 Unclassified (1 source) Patient encounter status 12-02-2024 Results Test Name Value Interpretation Reference Range Facility Absolute lymphocyte countOrd ered By: Megan Mosqueda on 03-27-2025 Lymphocytes Auto (Unsp spec) [#/Vol] 1.97 10*3/uL 0.83-4.51 [facility] Absolute neutrophil countOrd ered By: Megan Mosqueda on 03-27-2025 Neutrophils (Bld) [#/Vol] 2.6 10*3/uL 2.0-7.7 [facility] Anion gap in Serum or Plasma Ordered By: Megan Mosqueda on 03-27-2025 Anion gap [Moles/Vol] 11 mmol/L 5-15 [facility] Automated lymphocyte count a s percentage of total leukocytesOrdered By: Megan Mosqueda on 03-27-2025 Lymphocytes/100 WBC Auto (Unsp spec) 35.5 % 19-41 [facility] BUN/creatinine ratioOrdered By: Megan Mosqueda on 03-27-2025 Urea nitrogen/Creatinine [Mass ratio] 8.2 mg/mg Low 10-20 [facility] Basophil percentageOrdered B y: Megan Mosqueda on 03-27-2025 Basophils/100 WBC (Bld) 0.9 % 0-1 [facility] Bilirubin, totalOrdered By: Megansandoval Mosqueda on 03-27-2025 Bilirubin [Mass/Vol] 0.90 mg/dL 0.00-1.30 [facility] CBC W/Diff, Automatedon Absolute Lymph 1.97 X10 3/uL Normal 0.83-4.51 [facility] Comment on above: Order Comment: PER P T-JUST VELLANKI ORDER Performed By: #### L [id number], L100.0100 #### [facility] [address] [place], [address] Absolute Neut 2.6 X10 3/uL Normal 2.0-7.7 [facility] Comment on above: Order Comment: PER P T-JUST VELLANKI ORDER Performed By: #### L [id number], L100.0100 #### [facility] [address] [place], [address] Basophils/100 WBC (Bld) 0.9 % Normal 0-1 [facility] Comment on above: Order Comment: PER P T-JUST VELLANKI ORDER Performed By: #### L [id number], L100.0100 #### [facility] [address] [place], [address] Eosinophils/100 WBC (Bld) 4.3 % Normal 0-5 [facility] Comment on above: Order Comment: PER P T-JUST VELLANKI ORDER Performed By: #### L [id number], L100.0100 #### [facility] [address] [place], [address] Erythrocyte distribution width (RBC) [Ratio] 12.6 % Normal 11.6-14.6 [facility] Comment on above: Order Comment: PER P T-JUST VELLANKI ORDER Performed By: #### L [id number], L100.0100 #### [facility] [address] [place], [address] Hematocrit (Bld) [Volume fraction] 47.3 % Normal 40-54 [facility] Comment on above: Order Comment: PER P T-JUST VELLANKI ORDER Performed By: #### L [id number], L100.0100 #### [facility] [address] [place], [address] Hemoglobin (Bld) [Mass/Vol] 16.5 g/dL Normal 13.0-16.5 [facility] Comment on above: Order Comment: PER P T-JUST DANNYEDVINKI ORDER Performed By: #### L [id number], L100.0100 #### [facility] [address] [place], [address] IG% 0.400 Normal 0.0-0.9 [facility] Comment on above: Order Comment: PER P T-JUST VELLANKI ORDER Result Comment: IG% - Immature Granulocytes (promyelocytes, myelocytes and metamyelocytes) > 1% indicates that a LEFT SHIFT is Present. Performed By: #### L [id number], L100.0100 #### [facility] [address] [place], [address] Lymphocytes/100 WBC (Bld) 35.5 % Normal 19-41 [facility] Comment on above: Order Comment: PER P T-JUST DANNYEDVINLONI ORDER Performed By: #### L [id number], L100.0100 #### [facility] [address] [place], [address] MCH (RBC) [Entitic mass] 33.1 pg High 27.0-32.0 [facility] Comment on above: Order Comment: PER P T-DIANA GRIGSBYLONI ORDER Performed By: #### L [id number], L100.0100 #### [facility] [address] [place], [address] MCHC (RBC) [Mass/Vol] 34.9 g/dL Normal 32-36 [facility] Comment on above: Order Comment: PER P T-JUST PANDA ORDER Performed By: #### L [id number], L100.0100 #### [facility] [address] [place], [address] MCV (RBC) [Entitic vol] 95.0 fL High 80-94 [facility] Comment on above: Order Comment: PER P T-JUST VELLANKI ORDER Performed By: #### L [id number], L100.0100 #### [facility] [address] [place], [address] Monocytes/100 WBC (Bld) 11.5 % High 0-10 [facility] Comment on above: Order Comment: PER P T-JUST VELLANKI ORDER Performed By: #### L [id number], L100.0100 #### [facility] [address] [place], [address] Neutrophils/100 WBC (Bld) 47.4 % Normal 47-70 [facility] Comment on above: Order Comment: PER P T-JUST VELLANKI ORDER Performed By: #### L [id number], L100.0100 #### [facility] [address] [place], [address] Nucleated RBC (Bld) [#/Vol] 0 10*3/uL Normal 0-5 [facility] Comment on above: Order Comment: PER P T-JUST VELLANKI ORDER Performed By: #### L [id number], L100.0100 #### [facility] [address] [place], [address] Platelet mean volume (Bld) [Entitic vol] 10.1 fL Normal 6.2-12.0 [facility] Comment on above: Order Comment: PER P T-JUST VELLANKI ORDER Performed By: #### L [id number], L100.0100 #### [facility] [address] [place], [address] Platelets (Bld) [#/Vol] 279 10*3/uL Normal 150-450 [facility] Comment on above: Order Comment: PER P T-JUST VELLANKI ORDER Performed By: #### L [id number], L100.0100 #### [facility] [address] [place], [address] RBC (Bld) [#/Vol] 4.98 10*6/uL Normal 4.6-6.2 [facility] Comment on above: Order Comment: PER P ABDOUL MOSQUEDA ORDER Performed By: #### L [id number], L100.0100 #### [facility] [address] [place], [address] RDW SD 43.5 fl Normal 35.1-43.9 [facility] Comment on above: Order Comment: PER P -DIANA MOSQUEDA ORDER Performed By: #### L [id number], L100.0100 #### [facility] [address] [place], [address] WBC (Bld) [#/Vol] 5.6 10*3/uL Normal 4.4-11.0 [facility] Comment on above: Order Comment: PER P ABDOUL MOSQUEDA ORDER Performed By: #### L [id number], L100.0100 #### [facility] [address] [place], [address] Carbon dioxide, total [Moles /volume] in Central venous bloodOrdered By: Megan Mosqueda on 03-27-2025 CO2 [Moles/Vol] 24.4 mmol/L 21.0-32.0 [facility] Chloride assayOrdered By: Jules Mosqueda on 03-27-2025 Chloride [Moles/Vol] 99 mmol/L 98-108 [facility] Comprehensive Metabolic Prof ilon 03-27-2025 Albumin [Mass/Vol] 4.3 g/dL Normal 3.4-4.8 [facility] Comment on above: Order Comment: PER P ABDOUL MOSQUEDA ORDER Performed By: #### L [id number], L100.0100 #### [facility] [address] [place], [address] Albumin/Globulin [Mass ratio] 1.4 {ratio} Normal 0.9-2.4 [facility] Comment on above: Order Comment: PER P T-JUST VELLANKI ORDER Performed By: #### L [id number], L100.0100 #### [facility] [address] [place], [address] ALK PHOS 89 U/L Normal 40-129 [facility] Comment on above: Order Comment: PER P T-JUST VELLANKI ORDER Performed By: #### L [id number], L100.0100 #### [facility] [address] [place], [address] ALT [Catalytic activity/Vol] 31 U/L Normal <=46 [facility] Comment on above: Order Comment: PER P T-JUST VELLANKI ORDER Performed By: #### L [id number], L100.0100 #### [facility] [address] [place], [address] AST [Catalytic activity/Vol] 27 U/L Normal <=37 [facility] Comment on above: Order Comment: PER P T-JUST VELLANKI ORDER Performed By: #### L [id number], L100.0100 #### [facility] [address] [place], [address] Bilirubin [Mass/Vol] 0.90 mg/dL Normal 0.00-1.30 [facility] Comment on above: Order Comment: PER P T-JUST VELLANKI ORDER Performed By: #### L 500.4050, L100.0100 #### [facility] [address] [place], [address] BUN/CRE 8.2 RATIO Low 10-20 [facility] Comment on above: Order Comment: PER P T-JUST VELLANKI ORDER Performed By: #### L [id number], L100.0100 #### [facility] [address] [place], [address] Calcium [Mass/Vol] 9.3 mg/dL Normal 7.6-11.0 [facility] Comment on above: Order Comment: PER P T-JUST VELLANKI ORDER Performed By: #### L [id number], L100.0100 #### [facility] [address] [place], [address] Chloride [Moles/Vol] 99 mmol/L Normal 98-108 [facility] Comment on above: Order Comment: PER P T-JUST VELLANKI ORDER Performed By: #### L [id number], L100.0100 #### [facility] [address] [place], [address] CO2 [Moles/Vol] 24.4 mmol/L Normal 21.0-32.0 [facility] Comment on above: Order Comment: PER P T-JUST VELLANKI ORDER Performed By: #### L 500.4050, L100.0100 #### [facility] [address] [place], [address] Creatinine [Mass/Vol] 0.87 mg/dL Normal 0.70-1.20 [facility] Comment on above: Order Comment: PER P T-JUST VELLANKI ORDER Performed By: #### L 500.4050, L100.0100 #### [facility] [address] [place], [address] GAP 11 Normal 5-15 [facility] Comment on above: Order Comment: PER P T-JUST VELLANKI ORDER Performed By: #### L [id number], L100.0100 #### [facility] [address] [place], [address] GFR/1.73 sq M.predicted among non-blacks MDRD (S/P/Bld) [Vol rate/Area] 97 mL/min/{1.73_m2} Normal >60 [facility] Comment on above: Order Comment: PER P T-JUST VELLANKI ORDER Result Comment: mL/m in/1.73m2 CKD-EPI Creatinine Equation (2020) Performed By: #### L [id number], L100.0100 #### [facility] [address] [place], [address] Globulin (S) [Mass/Vol] 3.0 g/dL Normal 2.2-4.2 [facility] Comment on above: Order Comment: PER P T-JUST VELLANKI ORDER Performed By: #### L [id number], L100.0100 #### [facility] [address] [place], [address] Glucose [Mass/Vol] 168 mg/dL High 70-99 [facility] Comment on above: Order Comment: PER P T-JUST VELLANKI ORDER Performed By: #### L [id number], L100.0100 #### [facility] [address] [place], [address] Potassium [Moles/Vol] 4.5 mmol/L Normal 3.3-5.1 [facility] Comment on above: Order Comment: PER P T-JUST VELLANKI ORDER Performed By: #### L 500.4050, L100.0100 #### [facility] [address] [place], [address] Sodium [Moles/Vol] 135 mmol/L Normal 133-145 [facility] Comment on above: Order Comment: PER P T-JUST VELLANKI ORDER Performed By: #### L [id number], L100.0100 #### [facility] [address] [place], [address] T PROT 7.3 g/dL Normal 5.9-8.4 [facility] Comment on above: Order Comment: PER P T-JUST VELLANKI ORDER Performed By: #### L [id number], L100.0100 #### [facility] [address] [place], [address] Urea nitrogen [Mass/Vol] 7 mg/dL Normal 4-19 [facility] Comment on above: Order Comment: PER P ABDOUL MOSQUEDA ORDER Performed By: #### L [id number], L100.0100 #### [facility] [address] [place], [address] Eosinophil percentageOrdered By: Megan Mosqueda on 03-27-2025 Eosinophils/100 WBC (Bld) 4.3 % 0-5 [facility] Erythrocyte distribution wid th ratioOrdered By: Megan Mosqueda on 03-27-2025 Erythrocyte distribution width (RBC) [Ratio] 12.6 % 11.6-14.6 [facility] Erythrocyte distribution wid th standard deviationOrdered By: Megan Mosqueda on 03-27-2025 Erythrocyte distribution width (RBC) [Ratio] 43.5 fl 35.1-43.9 [facility] Glomerular filtration rate ( GFR) estimation/1.73 sq m using serum, plasma, or whole bOrdered By: Megan Mosqueda on 03-27-2025 GFR/1.73 sq M.predicted among non-blacks MDRD (S/P/Bld) [Vol rate/Area] 97 mL/min/{1.73_m2} >60 [facility] Comment on above: mL/min/1.73m2 CKD-EP I Creatinine Equation (2020) Hematocrit Auto (Bld) [Volum e fraction]Ordered By: Megan Mosqueda on 03-27-2025 Hematocrit (Bld) [Volume fraction] 47.3 % 40-54 [facility] Hemoglobin measurementOrdere d By: Megan Mosqueda on 03-27-2025 Hemoglobin (Bld) [Mass/Vol] 16.5 g/dL 13.0-16.5 [facility] Immature granulocytes/100 WB C Auto (Bld)Ordered By: Megan Mosqueda on 03-27-2025 Immature granulocytes/100 WBC (Bld) 0.400 % 0.0-0.9 [facility] Comment on above: IG% - Immature Granu locytes (promyelocytes, myelocytes and metamyelocytes) > 1% indicates that a LEFT SHIFT is Present. Laboratory - Chemistry and C hemistry - challengeOrdered By: Megan Mosqueda on 03-27-2025 AST [Catalytic activity/Vol] 27 U/L <38 [facility] MCV (mean corpuscular volume ) determinationOrdered By: Megan Mosqueda on 03-27-2025 MCV (RBC) [Entitic vol] 95.0 fL High 80-94 [facility] Mean corpuscular hemoglobin (MCH) determinationOrdered By: Megan Mosqueda on 03-27-2025 MCH (RBC) [Entitic mass] 33.1 pg High 27.0-32.0 [facility] Mean corpuscular hemoglobin concentration (MCHC) determinationOrdered By: Megan Mosqueda on 03-27-2025 MCHC (RBC) [Mass/Vol] 34.9 g/dL 32-36 [facility] Mean platelet volume determi nationOrdered By: Megan Mosqueda on 03-27-2025 Platelet mean volume (Bld) [Entitic vol] 10.1 fL 6.2-12.0 [facility] Monocyte percentageOrdered B y: Megan Mosqueda on 03-27-2025 Monocytes/100 WBC (Bld) 11.5 % High 0-10 [facility] Neutrophil percentageOrdered By: Megan Mosqueda on 03-27-2025 Neutrophils/100 WBC (Bld) 47.4 % 47-70 [facility] Nucleated red blood cell per centageOrdered By: Megan Mosqueda on 03-27-2025 Nucleated RBC/100 WBC (Bld) [Ratio] 0 % 0-5 [facility] Platelet countOrdered By: Jules Mosqueda on 03-27-2025 Platelets (Bld) [#/Vol] 279 10*3/uL 150-450 [facility] Potassium measurement (mass/ volume)Ordered By: Megan Mosqueda on 03-27-2025 Potassium (Unsp spec) [Mass/Vol] 4.5 mmol/L 3.3-5.1 [facility] RBC Auto (Bld) [#/Vol]Ordere d By: Megan Mosqueda on 03-27-2025 RBC (Bld) [#/Vol] 4.98 10*6/uL 4.6-6.2 [facility] Serum creatinine measurement (mass/volume)Ordered By: Megan Mosqueda on 03-27-2025 Creatinine [Mass/Vol] 0.87 mg/dL 0.70-1.20 [facility] Serum globulin measurementOr dered By: Megan Mosqueda on 03-27-2025 Globulin (S) [Mass/Vol] 3.0 g/dL 2.2-4.2 [facility] Serum glucose measurement (m ass/volume)Ordered By: Megan Mosqueda on 03-27-2025 Glucose [Mass/Vol] 168 mg/dL High 70-99 [facility] Serum or plasma alanine zuniga otransferase (ALT) measurementOrdered By: Megan Mosqueda on 03-27-2025 ALT [Catalytic activity/Vol] 31 U/L <47 [facility] Serum or plasma albumin moe urement (mass/volume)Ordered By: Megan Mosqueda on 03-27-2025 Albumin [Mass/Vol] 4.3 g/dL 3.4-4.8 [facility] Serum or plasma albumin/glob ulin mass ratioOrdered By: Megan Mosqueda on 03-27-2025 Albumin/Globulin [Mass ratio] 1.4 {ratio} 0.9-2.4 [facility] Serum or plasma alkaline alanna sphatase measurementOrdered By: Megan Mosqueda on 03-27-2025 ALP [Catalytic activity/Vol] 89 U/L 40-129 [facility] Serum or plasma calcium moe urement (mass/volume)Ordered By: Megan Mosqueda on 03-27-2025 Calcium [Mass/Vol] 9.3 mg/dL 7.6-11.0 [facility] Serum or plasma urea nitroge n measurement (mass/volume)Ordered By: Megan Mosqueda on 03-27-2025 Urea nitrogen [Mass/Vol] 7 mg/dL 4-19 [facility] Sodium levelOrdered By: Carmen Mosqueda on 03-27-2025 Sodium [Moles/Vol] 135 mmol/L 133-145 [facility] Total proteinOrdered By: Franco Mosqueda on 03-27-2025 Protein [Mass/Vol] 7.3 g/dL 5.9-8.4 [facility] White blood cell (WBC) count Ordered By: Megan Mosqueda on 03-27-2025 WBC (Bld) [#/Vol] 5.6 10*3/uL 4.4-11.0 [facility] PSA,Total - Annual Screenon 03-10-2025 PSA,TOT SCREEN 0.85 ng/mL Normal 0.02-4.00 [facility] Comment on above: Order Comment: Order Date: 03/10/25Order Info: [id number] - PSA Result Comment: This test was performed using the [employer] tPSA method. Measured values of a patient??sample can vary depending on the testing procedure used. PSA values determined on patient samples by different testing procedures cannot be used interchangeably. If there is a change in PSA assays while monitoring therapy, sequential testing should be performed to confirm baseline values. Performed By: #### L 500.4050, L100.0100 #### [facility] [address] [place], [address] [facility] 01-22-2025 [facility] Telephone (GENSME) ISIDRO PRECIADO ([id number]) 1960 Date Time Provider Department 01/22/25 ROD LEUNG During your visit today, we recorded the following information about you: Rod Leung MD 01/22/2025 10:40 AM Signed FOLLOW UP ENDOSCOPY - RESULTS AND RECOMMENDATIONS NAME: Isidro Preciado CLINIC NO.: [id number] : 1960 DATE: January 22, 2025 PRIMARY CARE PROVIDER: Fior Coats MD, MD Isidro Preciado is a patient referred for screening colonoscopy. I performed lower endoscopy on January 13, 2025. The patient was found to have: Lower Endoscopy Impression: - One 4 mm polyp in the rectum, removed with a cold biopsy forceps. Resected and retrieved. - Patent end-to-end ileo-rectal anastomosis, characterized by healthy appearing mucosa. - The examination was otherwise normal on direct and retroflexion views. Pathology demonstrated: FINAL DIAGNOSIS A. Rectum, polypectomy: - Tubular adenoma. IMPRESSION: adenomatous polyp PLAN: INSTRUCTIONS FOLLOWING A POLYP FOUND AT COLONOSCOPY You were found to have an adenomatous colon polyp. I recommend you undergo repeat endoscopy in 5 years. If you note bleeding, change in bowel habits, or other suspicious colon related symptoms before that time, those symptoms should be evaluated as necessary. If you have any difficulties or concerns, you should contact our office immediately. The patient is instructed to follow-up with your primary care provider I have instructed my staff to forward the above information to the patient and to the appropriate providers Arminda Molina RN 01/23/2025 10:39 AM Signed Detailed Voice message left for patient regarding message per MD. Advised to call office if further questions or concerns. Phone number provided. Provider message noted. Encounter closed. Allergies As of Date: 01/22/2025 (No Known Allergies) Date Reviewed: 01/13/2025 Reviewed by: Bianca Cueto RN - Fully Assessed Reason for Visit: Results [95] Prescriptions as of 01/23/2025 - amLODIPine (NORVASC) 10 mg tablet Take 10 mg by mouth once daily. - folic acid 1 mg tablet Take 1 mg by mouth two times a day. - methotrexate 2.5 mg tablet Take 2.5 mg by mouth. Five tablets once weekly - guselkumab (TREMFYA) 100 mg/mL auto-injector Inject 100 mg subcutaneously every 8 weeks. Problem List As Of Date 01/22/2025 Noted Resolved Diverticulitis of Colon (without Mention of Hem*01/21/2010 Letter Text Encounter Status:Closed by ROD LEUNG on 01/22/25 [facility] [id number] 01-13-2025 [id number] HNO ID: [id number] Author: BIANCA CUETO RN Service: ? Author Type: Registered Nurse Type: [id number] Filed: 01/13/2025 09:19 Note Text: The patient received a copy of Colonoscopy discharge instructions that contain information for how to contact the physician who performed the procedure and when to seek medical care. [facility] Colonoscopyon 01-13-2025 [facility] Patient Name: Isidro Preciado Procedure Date: 01/13/2025 8:24 AM Date of : 1960 Admit Type: Outpatient Age: 64 Gender: Male Note Status: Leak Patcher Override Procedure: Colonoscopy Indications: Screening for colorectal malignant neoplasm Providers: Rod Leung MD Patient Profile: This is a 64 year old male. Refer to note in patient chart for documentation of history and physical. Last Colonoscopy: 10 years ago. Referring Physician: Tiki Atkinson (Referring ) Medicines: Fentanyl 100 micrograms IV, Midazolam 6 mg IV, Diphenhydramine 50 mg IV Complications: No immediate complications. Requesting Provider: Procedure: Pre-Anesthesia Assessment: - Prior to the procedure, a History and Physical was performed, and patient medications and allergies were reviewed. The patient is competent. The risks and benefits of the procedure and the sedation options and risks were discussed with the patient. All questions were answered and informed consent was obtained. Patient identification and proposed procedure were verified by the physician and the nurse in the procedure room. Mental Status Examination: normal. Airway Examination: normal oropharyngeal airway and neck mobility. Respiratory Examination: clear to auscultation. CV Examination: normal. Prophylactic Antibiotics: The patient requires prophylactic antibiotics. Prior Anticoagulants: The patient has taken no anticoagulant or antiplatelet agents. ASA Grade Assessment: II - A patient with mild systemic disease. After reviewing the risks and benefits, the patient was deemed in satisfactory condition to undergo the procedure. The anesthesia plan was to use moderate sedation / analgesia (conscious sedation). Immediately prior to administration of medications, the patient was re-assessed for adequacy to receive sedatives. The heart rate, respiratory rate, oxygen saturations, blood pressure, adequacy of pulmonary ventilation, and response to care were monitored throughout the procedure. The physical status of the patient was re-assessed after the procedure. After I obtained informed consent, the scope was passed under direct vision. Throughout the procedure, the patient's blood pressure, pulse, and oxygen saturations were monitored continuously. The Colonoscope was introduced through the anus and advanced to the cecum, identified by the appendiceal orifice, ileocecal valve and palpation. The colonoscopy was performed without difficulty. The patient tolerated the procedure well. The ileocecal valve, appendiceal orifice, and rectum were photographed. The quality of the bowel preparation was good. Moderate Sedation: Moderate (conscious) sedation was personally administered by the endoscopist. The following parameters were monitored: oxygen saturation, heart rate, blood pressure, and response to care. Total physician intraservice time was 22 minutes. The administration of moderate sedation was initiated at 08:38. Findings: The perianal and digital rectal examinations were normal. A 4 mm polyp was found in the rectum. The polyp was sessile. The polyp was removed with a cold biopsy forceps. Resection and retrieval were complete. There was evidence of a prior end-to-end ileo-rectal anastomosis in the mid rectum. This was patent and was characterized by healthy appearing mucosa. The anastomosis was traversed. The exam was otherwise without abnormality on direct and retroflexion views. Impression: - One 4 mm polyp in the rectum, removed with a cold biopsy forceps. Resected and retrieved. - Patent end-to-end ileo-rectal anastomosis, characterized by healthy appearing mucosa. - The examination was otherwise normal on direct and retroflexion views. Recommendation: - Discharge patient to home. - Discharge patient to home. - Resume previous diet. - Continue present medications. - Repeat colonoscopy for surveillance based on pathology results. - Telephone my office for pathology results in 1 week. - Patient has a contact number available for emergencies. The signs and symptoms of potential delayed complications were discussed with the patient. Return to normal activities tomorrow. Written discharge instructions were provided to the patient. Procedure Code(s): --- Professional --- 63902, Colonoscopy, flexible; with biopsy, single or multiple G0500, Moderate sedation services provided by the same physician or other qualified health outdoor emergency care technician performing a gastrointestinal endoscopic service that sedation supports, requiring the presence of an independent trained observer to assist in the monitoring of the patient's level of consciousness and physiological status; initial 15 minutes of intra-service time; patient age 5 years or older (additional time may be reported with 14379, as appropriate) CPT (more content not included)... [facility] HISTORY PHYSICALon HISTORY PHYSICAL HNO ID: [id number] Author: ROD LEUNG MD Service: General Surgery Author Type: Physician Type: H&P Filed: 01/13/2025 08:13 Note Text: HISTORY AND PHYSICAL Isidro Yennifer Preciado : 1960 REFERRING PHYSICIAN: MD Jarek [address] [facility] [address] CHIEF COMPLAINT: Patient presents with: Consult: Colonscopy HPI: Isidro is a 64 year old male referred for endoscopy. Isidro notes due for screening colonoscopy. Isidro denies abdominal pain.. Isdiro denies diarrhea. Isidro denies constipation. Isidro denies a change in bowel habits. Isidro denies melena. Isidro denies bright red blood per rectum. Isidro denies hemorrhoids. Isidro denies family history of colon issues. Isidro denies heartburn. Isidro denies dysphagia. Isidro denies a history of ulcers/ peptic ulcer disease. Isidro has hx of colon resection d/t perforated diverticulitis by Dr. Morales AND Kulwant in 2009. Medical history is significant for HTN, RA. Denies CP, SOB, dizziness, palpitations, syncope, edema, recent hospitalizations Isidro has not undergone prior endoscopy. CURRENT MEDICATIONS Current Outpatient Medications Medication Sig amLODIPine (NORVASC) 10 mg tablet Take 10 mg by mouth once daily. folic acid 1 mg tablet Take 1 mg by mouth two times a day. (Patient taking differently: Take 1 mg by mouth two times a day.) methotrexate 2.5 mg tablet Take 2.5 mg by mouth. Five tablets once weekly guselkumab (TREMFYA) 100 mg/mL auto-injector Inject 100 mg subcutaneously every 8 weeks. peg 3350-Electrolytes (GOLYTELY) 236-22.74-6.74 -5.86 gram suspension Take 4,000 mL by mouth one time only for 1 dose. Refer to printed prep instructions from your provider. No current facility-administered medications for this visit. ALLERGIES: Patient has no known allergies. PAST MEDICAL HISTORY PAST MEDICAL HISTORY Diagnosis Date History of shingles HTN (hypertension) Hypertension Perforated diverticulum Psoriasis Rheumatoid arthritis (HCC) PAST SURGICAL HISTORY PAST SURGICAL HISTORY Procedure Laterality Date APPENDEC INDICATED PURPOSE OTH MAJOR PX NOT SPX 01/14/2010 COLONOSCOPY 12/2009 LAPAROSCOPY COLECTOMY PARTIAL W/ANASTOMOSIS 01/14/2010 LAPS MOBLJ SPLENIC FLXR PFRMD W/PRTL COLECTOMY 01/14/2010 FAMILY HISTORY FAMILY HISTORY Problem Relation Age of Onset other (diverticulitis) Mother Hypertension Mother No Known Problems Father No Known Problems Sister No Known Problems Maternal Grandmother Hypertension Maternal Grandfather Psoriasis Paternal Grandmother No Known Problems Paternal Grandfather SOCIAL HISTORY Social History Tobacco Use Smoking status: Every Day Current packs/day: 1.50 Types: Cigarettes Smokeless tobacco: Never Vaping Use Vaping status: Never Used Substance Use Topics Alcohol use: Yes Alcohol/week: 30.0 standard drinks of alcohol Types: 30 Cans of Beer (12oz) per week Drug use: Not Currently Types: Marijuana REVIEW OF SYMPTOMS: REVIEW OF SYSTEMS: General: The patient denies fatigue, denies weight loss, denies weight gain, denies feeling hot, and feelings of cold. Eyes: The patient denies glaucoma, denies eye injury/surgery, + glasses or contacts. Ear/Nose/Throat: The patient denies allergies, denies hayfever, denies ear infections, and denies bloody noses. Cardiovascular: The patient denies chest pain, denies heart disease, denies high blood pressure, denies high cholesterol, and denies poor circulation. Respiratory: The patient denies tuberculosis, denies pneumonia, denies frequent cough, denies shortness of breath, and denies coughing up blood. Gastrointestinal: The patient denies difficulty swallowing, denies acid reflux, denies ulcers, denies jaundice/hepatitis, denies gallbladder problems, denies vomiting, denies black or tarry stools, denies hemorrhoids, denies bleeding from rectum, denies diverticulitis, denies constipation, denies diarrhea, denies loss of stool control, and denies hernias. Kidney/Bladder: The patient denies kidney stones, denies urine infections, and denies bloody urine. Skin: The patient denies a history of skin cancer, denies bleeding/changing moles, and denies a history of skin rash. Neurologic: The patient denies a history of epilepsy/convulsions, denies headaches, denies head/spinal injuries, and denies stroke/TIA. Psychiatric: The patient denies psychiatric medications, denies depression, and denies voices. Endocrine: The patient denies thyroid disorders, denies diabetes, and denies hormonal problems. Hematologic: The patient denies a history of bruising, denies bleeding, and denies anemia. Infections: The patient denies a history of measles and mumps, denies rheumatic fever, and denies sexually transmitted diseases. Musculoskeletal: The patient denies back pain/injury, denies back problems, denies sciatica, denies knee/foot trouble, denies arthritis, or (more content not included)... [facility] Pathology biopsy report Kirill (Tiss)on 01-13-2025 AP DISCLAIMER [facility] Comment on above: Order Comment: Speci men Type: TISSUE SPECIMEN Ordering Facility: [facility] Address: [address] [place] [address] Result Comment: Nikki dolan Developed Test (LDT) Disclaimer: Performance characteristics of immunohistochemical, immunofluorescent, and chromogenic in-situ hybridization tests have been determined by the performing laboratory within [facility]'s [facility]ology and Laboratory Medicine Department ([facility], [facility], [facility], [facility], [facility], [facility], or [facility]) in a manner consistent with CLIA requirements. One or more of these tests may not have been cleared or approved by the FDA. [facility] is regulated under CLIA as qualified to perform high-complexity testing. These tests are used for clinical purposes. These should not be regarded as investigational or for research. Positive and negative controls stain appropriately. Performed By: #### 6 6121-5 #### [facility] CLIA [id number] [address] [place] [address] [place] CASE REPORT [facility] Comment on above: Order Comment: Speci vivek Type: TISSUE SPECIMEN Ordering Facility: [facility] Address: [address] [place] [address] Result Comment: [facility] Pathology Report Case: [id number] Authorizing Provider: Rod Leung MD Collected: 01/13/2025 08:59 AM Ordering Location: Ambulatory Surgery Received: 01/13/2025 01:58 PM Pathologist: Marilynn Hart MD Specimen: Rectum, Polyp Performed By: #### 6 6121-5 #### [facility] CLIA [id number] [address] [place] [address] STATES OF [facility] FINAL DIAGNOSIS [facility] Comment on above: Order Comment: Speci men Type: TISSUE SPECIMEN Ordering Facility: [facility] Address: [address] [place] [address] Result Comment: A. R ectum, polypectomy: - Tubular adenoma. AEB/mm/01/16/2025 at 1345 EDT Performed By: #### 6 6121-5 #### [facility] CLIA [id number] [address] [place] [address] [place] FINAL PERFORMING LAB Normal [facility] Comment on above: Order Comment: Speci men Type: TISSUE SPECIMEN Ordering Facility: [facility] Address: [address] [place] [address] Result Comment: Diag nostic interpretation performed at: [facility], [address] [place] [address] CLIA# [id number] Market Maker: Joe Ng MD Performed By: #### 6 6121-5 #### [facility] CLIA [id number] [address] [place] [address] [place] GROSS DESCRIPTION Normal [facility] Comment on above: Order Comment: Speci men Type: TISSUE SPECIMEN Ordering Facility: [facility] Address: [address] [place] [address] Result Comment: A. R ectum, Polyp Received in formalin is one piece of avilez, soft tissue measuring 0.3 x 0.3 x 0.2 cm. Totally submitted in one cassette. DL January 13, 2025 10:24 PM Gross examination performed at [facility], [address] [place] [address] Performed By: #### 6 6121-5 #### [facility] CLIA [id number] [address] [place] [address] [place] Absolute lymphocyte countOrd ered By: Fior Coats on 01-05-2025 Lymphocytes Auto (Unsp spec) [#/Vol] 1.93 10*3/uL 0.83-4.51 [facility] Absolute neutrophil countOrd ered By: Fior Coats on 01-05-2025 Neutrophils (Bld) [#/Vol] 2.8 10*3/uL 2.0-7.7 [facility] Anion gap in Serum or Plasma Ordered By: Fior Coats on 01-05-2025 Anion gap [Moles/Vol] 11 mmol/L 03-02 [facility] Automated lymphocyte count a s percentage of total leukocytesOrdered By: Fior Coats on 01-05-2025 Lymphocytes/100 WBC Auto (Unsp spec) 34.0 % [facility] BUN/creatinine ratioOrdered By: Fior Coats on 01-05-2025 Urea nitrogen/Creatinine [Mass ratio] 11.2 mg/mg 08-07 [facility] Basophil percentageOrdered B y: Fior Coats on 01-05-2025 Basophils/100 WBC (Bld) 0.7 % 0- [facility] Bilirubin Test strip Ql (U)O rdered By: Fior Coats on 01-05-2025 Bilirubin Ql (U) Negative Negative [facility] Bilirubin, totalOrdered By: Fior Coats on 01-05-2025 Bilirubin [Mass/Vol] 0.62 mg/dL 0.00-1.30 [facility] CBC W/Diff, Automatedon 12-18 Absolute Lymph 1.93 X10 3/uL Normal 0.83-4.51 [facility] Comment on above: Order Comment: Order Date: 11/11/24 Order Info: [id number] - CBCD Performed By: #### L 500.4050, L501.9985, L500.4100, L100.0100 #### [facility] [address] [place], [address] Absolute Neut 2.8 X10 3/uL Normal 2.0-7.7 [facility] Comment on above: Order Comment: Order Date: 11/11/24 Order Info: [id number] - CBCD Performed By: #### L 500.4050, L501.9985, L500.4100, L100.0100 #### [facility] [address] [place], [address] Basophils/100 WBC (Bld) 0.7 % Normal 0-1 [facility] Comment on above: Order Comment: Order Date: 11/11/24 Order Info: 0184-1 - CBCD Performed By: #### L 500.4050, L501.9985, L500.4100, L100.0100 #### [facility] [address] [place], [address] Eosinophils/100 WBC (Bld) 3.7 % Normal 0-5 [facility] Comment on above: Order Comment: Order Date: 11/11/24 Order Info: 0184-1 - CBCD Performed By: #### L 500.4050, L501.9985, L500.4100, L100.0100 #### [facility] [address] [place], [address] Erythrocyte distribution width (RBC) [Ratio] 13.5 % Normal 11.6-14.6 [facility] Comment on above: Order Comment: Order Date: 11/11/24 Order Info: 0184-1 - CBCD Performed By: #### L 500.4050, L501.9985, L500.4100, L100.0100 #### [facility] [address] [place], [address] Hematocrit (Bld) [Volume fraction] 47.0 % Normal 40-54 [facility] Comment on above: Order Comment: Order Date: 11/11/24 Order Info: 0184-1 - CBCD Performed By: #### L 500.4050, L501.9985, L500.4100, L100.0100 #### [facility] [address] [place], [address] Hemoglobin (Bld) [Mass/Vol] 16.2 g/dL Normal 13.0-16.5 [facility] Comment on above: Order Comment: Order Date: 11/11/24 Order Info: 0184-1 - CBCD Performed By: #### L 500.4050, L501.9985, L500.4100, L100.0100 #### [facility] [address] [place], [address] IG% 0.400 Normal 0.0-0.9 [facility] Comment on above: Order Comment: Order Date: 11/11/24 Order Info: 0184-1 - CBCD Result Comment: IG% - Immature Granulocytes (promyelocytes, myelocytes and metamyelocytes) > 1% indicates that a LEFT SHIFT is Present. Performed By: #### L 500.4050, L501.9985, L500.4100, L100.0100 #### [facility] [address] [place], [address] Lymphocytes/100 WBC (Bld) 34.0 % Normal 19-41 [facility] Comment on above: Order Comment: Order Date: 11/11/24 Order Info: 0184- - CBCD Performed By: #### L 500.4050, L501.9985, L500.4100, L100.0100 #### [facility] [address] [place], [address] MCH (RBC) [Entitic mass] 33.3 pg High 27.0-32.0 [facility] Comment on above: Order Comment: Order Date: 11/11/24 Order Info: 0184-1 - CBCD Performed By: #### L 500.4050, L501.9985, L500.4100, L100.0100 #### [facility] [address] [place], [address] MCHC (RBC) [Mass/Vol] 34.5 g/dL Normal 32-36 [facility] Comment on above: Order Comment: Order Date: 11/11/24 Order Info: 0184-1 - CBCD Performed By: #### L 500.4050, L501.9985, L500.4100, L100.0100 #### [facility] [address] [place], [address] MCV (RBC) [Entitic vol] 96.7 fL High 80-94 [facility] Comment on above: Order Comment: Order Date: 11/11/24 Order Info: 0184-1 - CBCD Performed By: #### L 500.4050, L501.9985, L500.4100, L100.0100 #### [facility] [address] [place], [address] Monocytes/100 WBC (Bld) 12.2 % High 0-10 [facility] Comment on above: Order Comment: Order Date: 11/11/24 Order Info: 0184-1 - CBCD Performed By: #### L 500.4050, L501.9985, L500.4100, L100.0100 #### [facility] [address] [place], [address] Neutrophils/100 WBC (Bld) 49.0 % Normal 47-70 [facility] Comment on above: Order Comment: Order Date: 11/11/24 Order Info: 0184-1 - CBCD Performed By: #### L 500.4050, L501.9985, L500.4100, L100.0100 #### [facility] [address] [place], [address] Nucleated RBC (Bld) [#/Vol] 0 10*3/uL Normal 0-5 [facility] Comment on above: Order Comment: Order Date: 11/11/24 Order Info: 0184-1 - CBCD Performed By: #### L 500.4050, L501.9985, L500.4100, L100.0100 #### [facility] [address] [place], [address] Platelet mean volume (Bld) [Entitic vol] 10.0 fL Normal 6.2-12.0 [facility] Comment on above: Order Comment: Order Date: 11/11/24 Order Info: 0184-1 - CBCD Performed By: #### L 500.4050, L501.9985, L500.4100, L100.0100 #### [facility] [address] [place], [address] Platelets (Bld) [#/Vol] 273 10*3/uL Normal 150-450 [facility] Comment on above: Order Comment: Order Date: 11/11/24 Order Info: 0184-1 - CBCD Performed By: #### L 500.4050, L501.9985, L500.4100, L100.0100 #### [facility] [address] [place], [address] RBC (Bld) [#/Vol] 4.86 10*6/uL Normal 4.6-6.2 [facility] Comment on above: Order Comment: Order Date: 11/11/24 Order Info: 0184-1 - CBCD Performed By: #### L 500.4050, L501.9985, L500.4100, L100.0100 #### [facility] [address] [place], [address] RDW SD 48.2 fl High 35.1-43.9 [facility] Comment on above: Order Comment: Order Date: 11/11/24 Order Info: 0184-1 - CBCD Performed By: #### L 500.4050, L501.9985, L500.4100, L100.0100 #### [facility] [address] [place], [address] WBC (Bld) [#/Vol] 5.7 10*3/uL Normal 4.4-11.0 [facility] Comment on above: Order Comment: Order Date: 11/11/24 Order Info: 0184-1 - CBCD Performed By: #### L 500.4050, L501.9985, L500.4100, L100.0100 #### [facility] [address] [place], [address] Calculated very low density lipoprotein (VLDL) cholesterol measurementOrdered By: Fior Coats on 01-05-2025 Calculated very low density lipoprotein (VLDL) cholesterol measurement 16 mg/dL 5-40 [facility] VLDL Cholesterol 16 mg/dL 5-40 [facility] Carbon dioxide, total [Moles /volume] in Central venous bloodOrdered By: Fior Coats on 01-05-2025 CO2 [Moles/Vol] 22.6 mmol/L 21.0-32.0 [facility] Chloride assayOrdered By: Vangie Coats on 01-05-2025 Chloride [Moles/Vol] 101 mmol/L 98-108 [facility] Comprehensive Metabolic Prof ilon 01-05-2025 Albumin [Mass/Vol] 4.1 g/dL Normal 3.4-4.8 [facility] Comment on above: Order Comment: CBCD, CMP, ORDERED BY DR. MOSQUEDA Performed By: #### L 500.4050, L100.0100 #### [facility] [address] [place], [address] Albumin/Globulin [Mass ratio] 1.3 {ratio} Normal 0.9-2.4 [facility] Comment on above: Order Comment: CBCD, CMP, ORDERED BY DR. MOSQUEDA Performed By: #### L 500.4050, L100.0100 #### [facility] [address] [place], [address] ALK PHOS 96 U/L Normal 40-129 [facility] Comment on above: Order Comment: CBCD, CMP, ORDERED BY DR. MOSQUEDA Performed By: #### L 500.4050, L100.0100 #### [facility] [address] [place], [address] ALT [Catalytic activity/Vol] 24 U/L Normal <=46 [facility] Comment on above: Order Comment: CBCD, CMP, ORDERED BY DR. MOSQUEDA Performed By: #### L 500.4050, L100.0100 #### [facility] [address] [place], [address] AST [Catalytic activity/Vol] 21 U/L Normal <=37 [facility] Comment on above: Order Comment: CBCD, CMP, ORDERED BY DR. MOSQUEDA Performed By: #### L 500.4050, L100.0100 #### [facility] [address] [place], [address] Bilirubin [Mass/Vol] 0.62 mg/dL Normal 0.00-1.30 [facility] Comment on above: Order Comment: CBCD, CMP, ORDERED BY DR. MOSQUEDA Performed By: #### L 500.4050, L100.0100 #### [facility] [address] [place], [address] BUN/CRE 11.2 RATIO Normal 10-20 [facility] Comment on above: Order Comment: CBCD, CMP, ORDERED BY DR. MOSQUEDA Performed By: #### L 500.4050, L100.0100 #### [facility] [address] [place], [address] Calcium [Mass/Vol] 9.4 mg/dL Normal 7.6-11.0 [facility] Comment on above: Order Comment: CBCD, CMP, ORDERED BY DR. MOSQUEDA Performed By: #### L 500.4050, L100.0100 #### [facility] [address] [place], [address] Chloride [Moles/Vol] 101 mmol/L Normal 98-108 [facility] Comment on above: Order Comment: CBCD, CMP, ORDERED BY DR. MOSQUEDA Performed By: #### L 500.4050, L100.0100 #### [facility] [address] [place], [address] CO2 [Moles/Vol] 22.6 mmol/L Normal 21.0-32.0 [facility] Comment on above: Order Comment: CBCD, CMP, ORDERED BY DR. MOSQUEDA Performed By: #### L 500.4050, L100.0100 #### [facility] [address] [place], [address] Creatinine [Mass/Vol] 0.76 mg/dL Normal 0.70-1.20 [facility] Comment on above: Order Comment: CBCD, CMP, ORDERED BY DR. MOSQUEDA Performed By: #### L 500.4050, L100.0100 #### [facility] [address] [place], [address] GAP 11 Normal 5-15 [facility] Comment on above: Order Comment: CBCD, CMP, ORDERED BY DR. MOSQUEDA Performed By: #### L 500.4050, L100.0100 #### [facility] [address] [place], [address] GFR/1.73 sq M.predicted among non-blacks MDRD (S/P/Bld) [Vol rate/Area] 101 mL/min/{1.73_m2} Normal >60 [facility] Comment on above: Order Comment: CBCD, CMP, ORDERED BY DR. MOSQUEDA Result Comment: mL/m in/1.73m2 CKD-EPI Creatinine Equation (2020) Performed By: #### L 500.4050, L100.0100 #### [facility] [address] [place], [address] Globulin (S) [Mass/Vol] 3.1 g/dL Normal 2.2-4.2 [facility] Comment on above: Order Comment: CBCD, CMP, ORDERED BY DR. MOSQUEDA Performed By: #### L 500.4050, L100.0100 #### [facility] [address] [place], [address] Glucose [Mass/Vol] 110 mg/dL High 70-99 [facility] Comment on above: Order Comment: CBCD, CMP, ORDERED BY DR. MOSQUEDA Performed By: #### L 500.4050, L100.0100 #### [facility] [address] [place], [address] Potassium [Moles/Vol] 4.3 mmol/L Normal 3.3-5.1 [facility] Comment on above: Order Comment: CBCD, CMP, ORDERED BY DR. MOSQUEDA Performed By: #### L 500.4050, L100.0100 #### [facility] [address] [place], [address] Sodium [Moles/Vol] 134 mmol/L Normal 133-145 [facility] Comment on above: Order Comment: CBCD, CMP, ORDERED BY DR. MOSQUEDA Performed By: #### L 500.4050, L100.0100 #### [facility] [address] [place], [address] T PROT 7.2 g/dL Normal 5.9-8.4 [facility] Comment on above: Order Comment: CBCD, CMP, ORDERED BY DR. MOSQUEDA Performed By: #### L 500.4050, L100.0100 #### [facility] [address] [place], [address] Urea nitrogen [Mass/Vol] 9 mg/dL Normal 4-19 [facility] Comment on above: Order Comment: CBCD, CMP, ORDERED BY DR. MOSQUEDA Performed By: #### L 500.4050, L100.0100 #### [facility] [address] [place], [address] Eosinophil percentageOrdered By: Fior Coats on 01-05-2025 Eosinophils/100 WBC (Bld) 3.7 % 0-5 [facility] Epithelial cells.squamous LM Ql (Urine sed)Ordered By: Fior Coats on 01-05-2025 Epithelial cells.squamous LM.HPF (Urine sed) [#/Area] 0 /[HPF] 0-5 [facility] Erythrocyte distribution wid th ratioOrdered By: Fior Coats on 01-05-2025 Erythrocyte distribution width (RBC) [Ratio] 13.5 % 11.6-14.6 [facility] Erythrocyte distribution wid th standard deviationOrdered By: Fior Coats on 01-05-2025 Erythrocyte distribution width (RBC) [Entitic vol] 48.2 fL High 35.1-43.9 [facility] Erythrocyte distribution width (RBC) [Ratio] 48.2 fl High 35.1-43.9 [facility] GFR/1.73 sq M.predicted callie g non-blacks MDRD (S/P/Bld) [Vol rate/Area]Ordered By: Fior Coats on 01-05-2025 Estimated GFR (MDRD) Non-Af Amer 101 >60 [facility] Comment on above: mL/min/1.73m2 CKD-EP I Creatinine Equation (2020) Glomerular filtration rate ( GFR) estimation/1.73 sq m using serum, plasma, or whole bOrdered By: Fior Coats on 01-05-2025 GFR/1.73 sq M.predicted among non-blacks MDRD (S/P/Bld) [Vol rate/Area] 101 mL/min/{1.73_m2} >60 [facility] Comment on above: mL/min/1.73m2 CKD-EP I Creatinine Equation (2020) Glucose Ql (U)Ordered By: Vangie Coats on 01-05-2025 Urine Glucose (UA) Normal mg/dl Normal [facility] Hematocrit Auto (Bld) [Volum e fraction]Ordered By: Fior Coats on 01-05-2025 Hematocrit (Bld) [Volume fraction] 47.0 % 40-54 [facility] Hemoglobin A1con 01-05-2025 HbA1c (Bld) [Mass fraction] 5.6 % Low <=5.6 [facility] Comment on above: Order Comment: Order Date: 11/11/24Order Info: [id number] - A1C Performed By: #### L 500.4050, L100.0100 #### [facility] [place], [address] Hemoglobin A1c percentageOrd ered By: Fior Coats on 01-05-2025 HbA1c (Bld) [Mass fraction] 5.6 % Low >5.7 [facility] Hemoglobin measurementOrdere d By: Fior Coats on 01-05-2025 Hemoglobin (Bld) [Mass/Vol] 16.2 g/dL 13.0-16.5 [facility] Immature granulocytes/100 WB C Auto (Bld)Ordered By: Fior Coats on 01-05-2025 Immature granulocytes/100 WBC (Bld) 0.400 % 0.0-0.9 [facility] Comment on above: IG% - Immature Granu locytes (promyelocytes, myelocytes and metamyelocytes) > 1% indicates that a LEFT SHIFT is Present. Ketones Test strip Ql (U)Ord ered By: Fior Coats on 01-05-2025 Ketones Ql (U) Negative Negative [facility] LDL calc ser/plasOrdered By: Fior Coats on 01-05-2025 Cholesterol in LDL [Mass/Vol] 108 mg/dL [facility] Comment on above: Qxwcspuadg=246-635 m g/dL & Higher Wgyd=115 mg/dL or greater LDL Cholesterol, Calculated 108 mg/dL [facility] Comment on above: Wucudthomm=269-076 m g/dL & Higher Qyhs=260 mg/dL or greater Laboratory - Chemistry and C hemistry - challengeOrdered By: Fior Coats on 01-05-2025 AST [Catalytic activity/Vol] 21 U/L <38 [facility] Lipid Profileon 01-05-2025 CHOL:HDL 2.71 Normal [facility] Comment on above: Order Comment: CBCD, CMP, ORDERED BY DR. MOSQUEDA Performed By: #### L 500.4050, L100.0100 #### [facility] [address] [place] [address]. [place], [place], [address] Cholesterol [Mass/Vol] 196 mg/dL Normal <=200 [facility] Comment on above: Order Comment: CBCD, CMP, ORDERED BY DR. MOSQUEDA Result Comment: Chol esterol level, Desirable <200 mg/dL Borderline high cholesterol 200-239 mg/dL High cholesterol >=240 mg/dL Recommendations of the NCEP Adult Treatment Panel for the following risk-cutoff thresholds for the [place] population. Performed By: #### L 500.4050, L100.0100 #### [facility] [address] [place], [address] Cholesterol in HDL [Mass/Vol] 72 mg/dL Normal [facility] Comment on above: Order Comment: CBCD, CMP, ORDERED BY DR. MOSQUEDA Result Comment: Elvia onal Cholesterol Education Program (NCEP) guidelines: <40 mg/dL: Low HDL-cholesterol (major risk factor for CHD) >= 60 mg/dL: High HDL-cholesterol (negative risk factor for CHD) HDL-cholesterol is affected by a number of factors, e.g. smoking, exercise, hormones, sex and age. Performed By: #### L 500.4050, L100.0100 #### [facility] [address] [place], [address] Cholesterol in LDL [Mass/Vol] 108 mg/dL Normal [facility] Comment on above: Order Comment: CBCD, CMP, ORDERED BY DR. MOSQUEDA Result Comment: Bord uauyhl=841-610 mg/dL Higher Ammn=612 mg/dL or greater Performed By: #### L 500.4050, L100.0100 #### [facility] [address] [place], [address] Cholesterol in VLDL [Mass/Vol] 16 mg/dL Normal 5-40 [facility] Comment on above: Order Comment: CBCD, CMP, ORDERED BY DR. MOSQUEDA Performed By: #### L 500.4050, L100.0100 #### [facility] [address] [place], [address] Triglyceride [Mass/Vol] 80 mg/dL Normal [facility] Comment on above: Order Comment: CBCD, CMP, ORDERED BY DR. MOSQUEDA Result Comment: The drugs N-Acetylcysteine and Metamizole may falsely depress this assay. Normal range: <150 mg/dL Borderline High: 150-199 mg/dL High: 200-499 mg/dL Very High: >500 mg/dL Performed By: #### L 500.4050, L100.0100 #### [facility] [address] [place], [address] Lymphocytes Auto (Unsp spec) [#/Vol]Ordered By: Fior Coats on 01-05-2025 Lymphocytes (Bld) [#/Vol] 1.93 10*3/uL 0.83-4.51 [facility] Lymphocytes/100 WBC Auto (Un sp spec)Ordered By: Fior Coats on 01-05-2025 Lymphocytes/100 WBC (Bld) 34.0 % 19-41 [facility] MCV (mean corpuscular volume ) determinationOrdered By: Fior Coats on 01-05-2025 MCV (RBC) [Entitic vol] 96.7 fL High 80-94 [facility] Mean corpuscular hemoglobin (MCH) determinationOrdered By: Fior Coats on 01-05-2025 MCH (RBC) [Entitic mass] 33.3 pg High 27.0-32.0 [facility] Mean corpuscular hemoglobin concentration (MCHC) determinationOrdered By: Fior Coats on 01-05-2025 MCHC (RBC) [Mass/Vol] 34.5 g/dL 32-36 [facility] Mean platelet volume determi nationOrdered By: Fior Coats on 01-05-2025 Platelet mean volume (Bld) [Entitic vol] 10.0 fL 6.2-12.0 [facility] Microscopic analysis of urin e for red blood cells (RBC)Ordered By: Fior Coats on 01-05-2025 Microscopic analysis of urine for red blood cells (RBC) 0 SEEN /hpf 0-5 [facility] Urine RBC 0 SEEN /hpf 0-5 [facility] Monocyte percentageOrdered B y: Fior Coats on 01-05-2025 Monocytes/100 WBC (Bld) 12.2 % High 0-10 [facility] Mucus LM Ql (Urine sed)Order ed By: Fior Coats on 01-05-2025 Mucus Ql (Urine sed) 0 SEEN /hpf [facility] Neutrophil percentageOrdered By: Fior Coats on 01-05-2025 Neutrophils/100 WBC (Bld) 49.0 % 47-70 [facility] Nitrite Test strip Ql (U)Ord ered By: Fior Coats on 01-05-2025 Nitrite Ql (U) Negative Negative [facility] Nucleated red blood cell per centageOrdered By: Fior Coats on 01-05-2025 Nucleated RBC/100 WBC (Bld) [Ratio] 0 % 0-5 [facility] Platelet countOrdered By: Vangie Coats on 01-05-2025 Platelets (Bld) [#/Vol] 273 10*3/uL 150-450 [facility] Potassium (Unsp spec) [Mass/ Vol]Ordered By: Fior Coats on 01-05-2025 Potassium [Moles/Vol] 4.3 mmol/L 3.3-5.1 [facility] Potassium measurement (mass/ volume)Ordered By: Fior Coats on 01-05-2025 Potassium (Unsp spec) [Mass/Vol] 4.3 mmol/L 3.3-5.1 [facility] Protein Test strip Ql (U)Ord ered By: Fior Coats on 01-05-2025 Protein Ql (U) Negative Negative [facility] RBC Auto (Bld) [#/Vol]Ordere d By: Fior Coats on 01-05-2025 RBC (Bld) [#/Vol] 4.86 10*6/uL 4.6-6.2 [facility] Screening total cholesterol/ high density lipoprotein (HDL) cholesterol ratioOrdered By: Fior Coats on 01-05-2025 Cholesterol.total/Cho lesterol in HDL [Mass ratio] 2.71 {ratio} [facility] Serum creatinine measurement (mass/volume)Ordered By: Fior Coats on 01-05-2025 Creatinine [Mass/Vol] 0.76 mg/dL 0.70-1.20 [facility] Serum globulin measurementOr dered By: Fior Coats on 01-05-2025 Globulin (S) [Mass/Vol] 3.1 g/dL 2.2-4.2 [facility] Serum glucose measurement (m ass/volume)Ordered By: Fior Coats on 01-05-2025 Glucose [Mass/Vol] 110 mg/dL High 70-99 [facility] Serum or plasma alanine zuniga otransferase (ALT) measurementOrdered By: Fior Coats on 01-05-2025 ALT [Catalytic activity/Vol] 24 U/L <47 [facility] Serum or plasma albumin moe urement (mass/volume)Ordered By: Fior Coats on 01-05-2025 Albumin [Mass/Vol] 4.1 g/dL 3.4-4.8 [facility] Serum or plasma albumin/glob ulin mass ratioOrdered By: Fior Coats on 01-05-2025 Albumin/Globulin [Mass ratio] 1.3 {ratio} 0.9-2.4 [facility] Serum or plasma alkaline alanna sphatase measurementOrdered By: Fior Coats on 01-05-2025 ALP [Catalytic activity/Vol] 96 U/L 40-129 [facility] Serum or plasma calcium moe urement (mass/volume)Ordered By: Fior Coats on 01-05-2025 Calcium [Mass/Vol] 9.4 mg/dL 7.6-11.0 [facility] Serum or plasma cholesterol in HDL measurement (mass/volume)Ordered By: Fior Coats on 01-05-2025 Cholesterol in HDL [Mass/Vol] 72 mg/dL >40 [facility] Comment on above: National Cholesterol Education Program (NCEP) guidelines:<40 mg/dL: Low HDL-cholesterol (major risk factor for CHD)>= 60 mg/dL: High HDL-cholesterol (negative risk factor for CHD)HDL-cholesterol is affected by a number of factors, e.g. smoking, exercise, hormones, sex and age. Serum or plasma cholesterol measurement (mass/volume)Ordered By: Fior Coats on 01-05-2025 Cholesterol [Mass/Vol] 196 mg/dL <201 [facility] Comment on above: Cholesterol level, D esirable <200 mg/dLBorderline high cholesterol 200-239 mg/dLHigh cholesterol >=240 mg/dLRecommendations of the NCEP Adult Treatment Panel for the following risk-cutoff thresholds for the [place] population. Serum or plasma urea nitroge n measurement (mass/volume)Ordered By: Fior Coats on 01-05-2025 Urea nitrogen [Mass/Vol] 9 mg/dL 4-19 [facility] Sodium levelOrdered By: Fior Coats on 01-05-2025 Sodium [Moles/Vol] 134 mmol/L 133-145 [facility] Squamous epithelial cells de tection in urine sediment by light microscopyOrdered By: Fior Coats on 01-05-2025 Epithelial cells.squamous LM Ql (Urine sed) 0 SEEN /hpf 0-5 [facility] Total proteinOrdered By: Edmar Coats on 01-05-2025 Protein [Mass/Vol] 7.2 g/dL 5.9-8.4 [facility] Triglycerides measurementOrd ered By: Fior Coats on 01-05-2025 Triglyceride [Mass/Vol] 80 mg/dL <199 [facility] Comment on above: The drugs N-Acetylcy steine and Metamizole may falsely depress this assay. Normal range: <150 mg/dLBorderline High: 150-199 mg/dLHigh: 200-499 mg/dLVery High: >500 mg/dL Urinalysis, Completeon 01-05 RBC 0 SEEN Normal 0-5 [facility] Comment on above: Order Comment: DR. Bryon GAMEZ GETS RESULTS FROM CBCD AND CMP DR. COATS GETS RESULTS FOR ALL LABS Urine, Random Performed By: #### L 400.0001 #### [facility] [address] [facility] [place], [place], [id number] Urine blood detectionOrdered By: Fior Coats on 01-05-2025 Urine Occult Blood Negative Negative [facility] Urine clarityOrdered By: Edmar Coats on 01-05-2025 Clarity (U) Clear Clear [facility] Urine color determinationOrd ered By: Fior Coats on 01-05-2025 Color (U) Yellow Yellow [facility] Urine glucose detectionOrder ed By: Fior Coats on 01-05-2025 Glucose Ql (U) Normal mg/dl Normal [facility] Urine leukocyte esterase det ection by dipstickOrdered By: Fior Coats on 01-05-2025 Leukocyte esterase Test strip Ql (U) Negative Negative [facility] Urine pHOrdered By: Fior stewart on 01-05-2025 pH (U) 6.0 [pH] 5.0 - 8.0 [facility] Urine sediment bacteria coun t by microscopy (number/high power field)Ordered By: Fior Coats on 01-05-2025 Bacteria LM.HPF (Urine sed) [#/Area] 0 /[HPF] None Seen [facility] Urine specific gravity measu rementOrdered By: Fior Coats on 01-05-2025 Specific gravity (U) [Rel density] 1.015 1.002-1.030 [facility] Urine urobilinogen measureme ntOrdered By: Fior Coats on 01-05-2025 Urobilinogen Ql (U) Normal mg/dl Normal [facility] Urobilinogen Ql (U)Ordered B y: Fior Coats on 01-05-2025 Urine Urobilinogen Normal mg/dl Normal [facility] White blood cell (WBC) count Ordered By: Fior Coats on 01-05-2025 WBC (Bld) [#/Vol] 5.7 10*3/uL 4.4-11.0 [facility] White blood cell countOrdere d By: Fior Coats on 01-05-2025 Urine WBC 0 SEEN /hpf 0-5 [facility] White blood cell count 0 SEEN /hpf 0-5 [facility] CNCOon 01-03-2025 CNCO Letter Text Normal [facility] CNOVon 12-02-2024 CNOV Office Visit (GENSWS ) ISIDRO PRECIADO ([id number]) 1960 M Date Time Provider Department 12/02/24 8:00 AM TIKI ATKINSON During your visit today, we recorded the following information about you: Temperature Pulse Respiration Blood pressure 98 degrees 114/minute 14/minute 122/78 Weight Height 102.5 kg 1.93 m Tiki Atkinson APRN.CNP 12/02/2024 8:44 AM Signed HISTORY AND PHYSICAL Isidro Preciado : 1960 REFERRING PHYSICIAN: Fior Coats MD [address] [facility] [id number] CHIEF COMPLAINT: Patient presents with: Consult: Colonscopy HPI: Isidro is a 64 year old male referred for endoscopy. Isidro notes due for screening colonoscopy. Isidro denies abdominal pain.. Isidro denies diarrhea. Isidro denies constipation. Isidro denies a change in bowel habits. Isidro denies melena. Isidro denies bright red blood per rectum. Isidro denies hemorrhoids. Isidro denies family history of colon issues. Isidro denies heartburn. Isidro denies dysphagia. Isidro denies a history of ulcers/ peptic ulcer disease. Isidro has hx of colon resection d/t perforated diverticulitis by Dr. Morales AND Kulwant in 2009. Medical history is significant for HTN, RA. Denies CP, SOB, dizziness, palpitations, syncope, edema, recent hospitalizations Isidro has not undergone prior endoscopy. Current Outpatient Medications Medication Sig amLODIPine (NORVASC) 10 mg tablet Take 10 mg by mouth once daily. folic acid 1 mg tablet Take 1 mg by mouth two times a day. (Patient taking differently: Take 1 mg by mouth two times a day.) methotrexate 2.5 mg tablet Take 2.5 mg by mouth. Five tablets once weekly guselkumab (TREMFYA) 100 mg/mL auto-injector Inject 100 mg subcutaneously every 8 weeks. peg 3350-Electrolytes (GOLYTELY) 236-22.74-6.74 -5.86 gram suspension Take 4,000 mL by mouth one time only for 1 dose. Refer to printed prep instructions from your provider. No current facility-administered medications for this visit. ALLERGIES: Patient has no known allergies. PAST MEDICAL HISTORY Diagnosis Date History of shingles HTN (hypertension) Hypertension Perforated diverticulum Psoriasis Rheumatoid arthritis (HCC) PAST SURGICAL HISTORY Procedure Laterality Date APPENDEC INDICATED PURPOSE OTH MAJOR PX NOT SPX 01/14/2010 COLONOSCOPY 12/2009 LAPAROSCOPY COLECTOMY PARTIAL W/ANASTOMOSIS 01/14/2010 LAPS MOBLJ SPLENIC FLXR PFRMD W/PRTL COLECTOMY 01/14/2010 FAMILY HISTORY Problem Relation Age of Onset other (diverticulitis) Mother Hypertension Mother No Known Problems Father No Known Problems Sister No Known Problems Maternal Grandmother Hypertension Maternal Grandfather Psoriasis Paternal Grandmother No Known Problems Paternal Grandfather Social History Tobacco Use Smoking status: Every Day Current packs/day: 1.50 Types: Cigarettes Smokeless tobacco: Never Vaping Use Vaping status: Never Used Substance Use Topics Alcohol use: Yes Alcohol/week: 30.0 standard drinks of alcohol Types: 30 Cans of Beer (12oz) per week Drug use: Not Currently Types: Marijuana REVIEW OF SYMPTOMS: REVIEW OF SYSTEMS: General: The patient denies fatigue, denies weight loss, denies weight gain, denies feeling hot, and feelings of cold. Eyes: The patient denies glaucoma, denies eye injury/surgery, + glasses or contacts. Ear/Nose/Throat: The patient denies allergies, denies hayfever, denies ear infections, and denies bloody noses. Cardiovascular: The patient denies chest pain, denies heart disease, denies high blood pressure, denies high cholesterol, and denies poor circulation. Respiratory: The patient denies tuberculosis, denies pneumonia, denies frequent cough, denies shortness of breath, and denies coughing up blood. Gastrointestinal: The patient denies difficulty swallowing, denies acid reflux, denies ulcers, denies jaundice/hepatitis, denies gallbladder problems, denies vomiting, denies black or tarry stools, denies hemorrhoids, denies bleeding from rectum, denies diverticulitis, denies constipation, denies diarrhea, denies loss of stool control, and denies hernias. Kidney/Bladder: The patient denies kidney stones, denies urine infections, and denies bloody urine. Skin: The patient denies a history of skin cancer, denies bleeding/changing moles, and denies a history of skin rash. Neurologic: The patient denies a history of epilepsy/convulsions, denies headaches, denies head/spinal injuries, and denies stroke/TIA. Psychiatric: The patient denies psychiatric medications, denies depression, and denies voices. Endocrine: The patient denies thyroid disorders, denies diabetes, and denies hormonal problems. Hematologic: The patient denies a history of bruising, denies bleeding, and denies anemia. Infections: The patient denies a history of measles and mump (more content not included)... [facility] Absolute neutrophil countOrd ered By: Megan Mosqueda on 10-17-2024 Neutrophils (Bld) [#/Vol] 2.7 10*3/uL 2.0-7.7 [facility] Albumin to globulin ratioOrd ered By: Megan Mosqueda on 10-17-2024 Albumin/Globulin [Mass ratio] 1.0 {ratio} 0.9-2.4 [facility] Basophil percentageOrdered B y: Megan Mosqueda on 10-17-2024 Basophils/100 WBC (Bld) 0.9 % 0-1 [facility] Bilirubin, totalOrdered By: Megan Mosqueda on 10-17-2024 Bilirubin [Mass/Vol] 1.10 mg/dL High 0.20-1.00 [facility] Comment on above: For patients on eltr ombopag therapy, use of Dimension [place] TBIL is not recommended. Blood urea nitrogen (BUN)/cr eatinine ratioOrdered By: Megan Mosqueda on 10-17-2024 Urea nitrogen/Creatinine [Mass ratio] 8.5 mg/mg Low 10-20 [facility] CBC W/Diff, Automatedon 09-20 Absolute Lymph 1.76 X10 3/uL Normal 0.83-4.51 [facility] Comment on above: Performed By: #### L 500.4050, L100.0100 #### [facility] [address] [place], [address] Absolute Neut 2.7 X10 3/uL Normal 2.0-7.7 [facility] Comment on above: Performed By: #### L 500.4050, L100.0100 #### [facility] [address] [place], [address] Basophils/100 WBC (Bld) 0.9 % Normal 0-1 [facility] Comment on above: Performed By: #### L 500.4050, L100.0100 #### [facility] [address] [place], [address] Eosinophils/100 WBC (Bld) 2.8 % Normal 0-5 [facility] Comment on above: Performed By: #### L 500.4050, L100.0100 #### [facility] [address] [place], [address] Erythrocyte distribution width (RBC) [Ratio] 12.5 % Normal 11.6-14.6 [facility] Comment on above: Performed By: #### L [id number], L100.0100 #### [facility] [address] [place], [address] Hematocrit (Bld) [Volume fraction] 47.5 % Normal 40-54 [facility] Comment on above: Performed By: #### L 500.4050, L100.0100 #### [facility] [address] [place], [address] Hemoglobin (Bld) [Mass/Vol] 15.8 g/dL Normal 13.0-16.5 [facility] Comment on above: Performed By: #### L 500.4050, L100.0100 #### [facility] [address] [place], [address] IG% 0.200 Normal 0.0-0.9 [facility] Comment on above: Result Comment: IG% - Immature Granulocytes (promyelocytes, myelocytes and metamyelocytes) > 1% indicates that a LEFT SHIFT is Present. Performed By: #### L 500.4050, L100.0100 #### [facility] [address] [place], [address] Lymphocytes/100 WBC (Bld) 33.3 % Normal 19-41 [facility] Comment on above: Performed By: #### L 500.4050, L100.0100 #### [facility] [address] [place], [address] MCH (RBC) [Entitic mass] 32.0 pg Normal 27.0-32.0 [facility] Comment on above: Performed By: #### L [id number], L100.0100 #### [facility] [address] [place], [address] MCHC (RBC) [Mass/Vol] 33.3 g/dL Normal 32-36 [facility] Comment on above: Performed By: #### L [id number], L100.0100 #### [facility] [address] [place], [address] MCV (RBC) [Entitic vol] 96.2 fL High 80-94 [facility] Comment on above: Performed By: #### L [id number], L100.0100 #### [facility] [address] [place], [address] Monocytes/100 WBC (Bld) 11.5 % High 0-10 [facility] Comment on above: Performed By: #### L 500.4050, L100.0100 #### [facility] [address] [place], [address] Neutrophils/100 WBC (Bld) 51.3 % Normal 47-70 [facility] Comment on above: Performed By: #### L 500.4050, L100.0100 #### [facility] [address] [place], [address] Nucleated RBC (Bld) [#/Vol] 0 10*3/uL Normal 0-5 [facility] Comment on above: Performed By: #### L [id number], L100.0100 #### [facility] [address] [place], [address] Platelet mean volume (Bld) [Entitic vol] 10.2 fL Normal 6.2-12.0 [facility] Comment on above: Performed By: #### L 500.4050, L100.0100 #### [facility] [address] [place], [address] Platelets (Bld) [#/Vol] 261 10*3/uL Normal 150-450 [facility] Comment on above: Performed By: #### L 500.4050, L100.0100 #### [facility] [address] [place], [address] RBC (Bld) [#/Vol] 4.94 10*6/uL Normal 4.6-6.2 [facility] Comment on above: Performed By: #### L 500.4050, L100.0100 #### [facility] [address] [place], [address] RDW SD 45.0 fl High 35.1-43.9 [facility] Comment on above: Performed By: #### L [id number], L100.0100 #### [facility] [address] [place], [address] WBC (Bld) [#/Vol] 5.3 10*3/uL Normal 4.4-11.0 [facility] Comment on above: Performed By: #### L [id number], L100.0100 #### [facility] [address] [place], [address] Carbon dioxide measurementOr dered By: Megan Mosqueda on 10-17-2024 CO2 [Moles/Vol] 27.0 mmol/L 21.0-32.0 [facility] Chloride measurementOrdered By: Megan Mosqueda on 10-17-2024 Chloride [Moles/Vol] 102 mmol/L 98-107 [facility] Comprehensive Metabolic Prof ilon 10-17-2024 Albumin [Mass/Vol] 3.6 g/dL Normal 3.2-5.0 [facility] Comment on above: Performed By: #### L 500.4050, L100.0100 #### [facility] [address] [place], [address] Albumin/Globulin [Mass ratio] 1.0 {ratio} Normal 0.9-2.4 [facility] Comment on above: Performed By: #### L 500.4050, L100.0100 #### [facility] [address] [place], [address] ALK P 83 U/L Normal 45-117 [facility] Comment on above: Performed By: #### L 500.4050, L100.0100 #### [facility] [address] [place], [address] ALT [Catalytic activity/Vol] 37 U/L Normal 16-61 [facility] Comment on above: Performed By: #### L [id number], L100.0100 #### [facility] [address] [place], [address] AST [Catalytic activity/Vol] 18 U/L Normal 15-37 [facility] Comment on above: Performed By: #### L 500.4050, L100.0100 #### [facility] [address] [place], [address] Bilirubin [Mass/Vol] 1.10 mg/dL High 0.20-1.00 [facility] Comment on above: Result Comment: For patients on eltrombopag therapy, use of Dimension [place] TBIL is not recommended. Performed By: #### L 500.4050, L100.0100 #### [facility] [address] [place], [address] BUN/CRE 8.5 RATIO Low 10-20 [facility] Comment on above: Performed By: #### L 500.4050, L100.0100 #### [facility] [address] [place], [address] CA,Total 8.9 mg/dL Normal 8.5-10.1 [facility] Comment on above: Performed By: #### L 500.4050, L100.0100 #### [facility] [address] [place], [address] Chloride [Moles/Vol] 102 mmol/L Normal 98-107 [facility] Comment on above: Performed By: #### L 500.4050, L100.0100 #### [facility] [address] [place], [address] CO2 [Moles/Vol] 27.0 mmol/L Normal 21.0-32.0 [facility] Comment on above: Performed By: #### L 500.4050, L100.0100 #### [facility] [address] [place], [address] Creatinine [Mass/Vol] 0.94 mg/dL Normal 0.70-1.30 [facility] Comment on above: Result Comment: The validity of the calculated GFR GFRAA in patients over 70 years has not been determined. Clinical correlation is essential. Performed By: #### L 500.4050, L100.0100 #### [facility] [address] [place], [address] EST GFR - AA 105 mL/min Normal >60 [facility] Comment on above: Result Comment: Afri can [place] GFR Calc Performed By: #### L 500.4050, L100.0100 #### [facility] [address] [place], [address] GAP 5 Normal 5-15 [facility] Comment on above: Performed By: #### L 500.4050, L100.0100 #### [facility] [address] [place], [address] GFR/1.73 sq M.predicted among non-blacks MDRD (S/P/Bld) [Vol rate/Area] 87 mL/min/{1.73_m2} Normal >60 [facility] Comment on above: Result Comment: Non- GFR Calc Performed By: #### L 500.4050, L100.0100 #### [facility] [address] [place], [address] Globulin (S) [Mass/Vol] 3.7 g/dL Normal 2.2-4.2 [facility] Comment on above: Performed By: #### L 500.4050, L100.0100 #### [facility] [address] [place], [address] Glucose [Mass/Vol] 149 mg/dL High 74-106 [facility] Comment on above: Result Comment: Fast ing Glucose result greater than or equal to 126 mg/dL suggests DIABETES MELLITUS per A.D.A. criteria. Performed By: #### L 500.4050, L100.0100 #### [facility] [address] [place], [address] Potassium [Moles/Vol] 4.6 mmol/L Normal 3.5-5.1 [facility] Comment on above: Performed By: #### L 500.4050, L100.0100 #### [facility] [address] [place], [address] Sodium [Moles/Vol] 134 mmol/L Low 136-145 [facility] Comment on above: Performed By: #### L 500.4050, L100.0100 #### [facility] [address] [place], [address] T PROT 7.3 g/dL Normal 6.4-8.2 [facility] Comment on above: Performed By: #### L 500.4050, L100.0100 #### [facility] [address] [place], [address] Urea nitrogen [Mass/Vol] 8 mg/dL Normal 7-18 [facility] Comment on above: Performed By: #### L 500.4050, L100.0100 #### [facility] [address] [place], [address] Eosinophil percentageOrdered By: Megan Mosqueda on 10-17-2024 Eosinophils/100 WBC (Bld) 2.8 % 0-5 [facility] Erythrocyte distribution wid th ratioOrdered By: Megan Mosqueda on 10-17-2024 Erythrocyte distribution width (RBC) [Ratio] 12.5 % 11.6-14.6 [facility] Erythrocyte distribution wid th standard deviationOrdered By: Megansandoval Mosqueda on 10-17-2024 Erythrocyte distribution width (RBC) [Entitic vol] 45.0 fL High 35.1-43.9 [facility] Estimated glomerular filtrat ion rate (GFR) AmericanOrdered By: Megan Mosqueda on 10-17-2024 Estimated GFR (MDRD) Amer 105 mL/min >60 [facility] Comment on above: GFR Calc Glomerular filtration rate ( GFR) estimationOrdered By: Megan Mosqueda on 10-17-2024 Estimated GFR (MDRD) Non-Af Amer 87 mL/min >60 [facility] Comment on above: Non- GFR Calc Glucose measurementOrdered B y: Megan Mosqueda on 10-17-2024 Glucose [Mass/Vol] 149 mg/dL High 74-106 [facility] Comment on above: Fasting Glucose resu lt greater than or equal to 126 mg/dL suggests DIABETES MELLITUS per A.D.A. criteria. Hematocrit Auto (Bld) [Volum e fraction]Ordered By: Megan Mosqueda on 10-17-2024 Hematocrit (Bld) [Volume fraction] 47.5 % 40-54 [facility] Hemoglobin measurementOrdere d By: Megan Mosqueda on 10-17-2024 Hemoglobin (Bld) [Mass/Vol] 15.8 g/dL 13.0-16.5 [facility] Immature granulocytes/100 WB C Auto (Bld)Ordered By: Megan Mosqueda on 10-17-2024 Immature granulocytes/100 WBC (Bld) 0.200 % 0.0-0.9 [facility] Comment on above: IG% - Immature Granu locytes (promyelocytes, myelocytes and metamyelocytes) > 1% indicates that a LEFT SHIFT is Present. Laboratory - Chemistry and C hemistry - challengeOrdered By: Megan Mosqueda on 10-17-2024 AST [Catalytic activity/Vol] 18 U/L 15-37 [facility] Lymphocytes Auto (Unsp spec) [#/Vol]Ordered By: Megan Mosqueda on 10-17-2024 Lymphocytes (Bld) [#/Vol] 1.76 10*3/uL 0.83-4.51 [facility] Lymphocytes/100 WBC Auto (Un sp spec)Ordered By: Megan Mosqueda on 10-17-2024 Lymphocytes/100 WBC (Bld) 33.3 % 19-41 [facility] MCV (mean corpuscular volume ) determinationOrdered By: Megan Mosqueda on 10-17-2024 MCV (RBC) [Entitic vol] 96.2 fL High 80-94 [facility] Mean corpuscular hemoglobin (MCH) determinationOrdered By: Megan Mosqueda on 10-17-2024 MCH (RBC) [Entitic mass] 32.0 pg 27.0-32.0 [facility] Mean corpuscular hemoglobin concentration (MCHC) determinationOrdered By: Megan Mosqueda on 10-17-2024 MCHC (RBC) [Mass/Vol] 33.3 g/dL 32-36 [facility] Mean platelet volume determi nationOrdered By: Megan Mosqueda on 10-17-2024 Platelet mean volume (Bld) [Entitic vol] 10.2 fL 6.2-12.0 [facility] Monocyte percentageOrdered B y: Megan Mosqueda on 10-17-2024 Monocytes/100 WBC (Bld) 11.5 % High 0-10 [facility] Neutrophil percentageOrdered By: Megna Mosqueda on 10-17-2024 Neutrophils/100 WBC (Bld) 51.3 % 47-70 [facility] Nucleated red blood cell per centageOrdered By: Megan Mosqueda on 10-17-2024 Nucleated RBC/100 WBC (Bld) [Ratio] 0 % 0-5 [facility] Platelet countOrdered By: Jules Mosqueda on 10-17-2024 Platelets (Bld) [#/Vol] 261 10*3/uL 150-450 [facility] Potassium measurementOrdered By: Megan Mosqueda on 10-17-2024 Potassium [Moles/Vol] 4.6 mmol/L 3.5-5.1 [facility] RBC Auto (Bld) [#/Vol]Ordere d By: Megan Mosqueda on 10-17-2024 RBC (Bld) [#/Vol] 4.94 10*6/uL 4.6-6.2 [facility] Serum anion gap measurementO rdered By: Megan Mosqueda on 10-17-2024 Anion gap [Moles/Vol] 5 mmol/L 5-15 [facility] Serum globulin measurementOr dered By: Megan Mosqueda on 10-17-2024 Globulin (S) [Mass/Vol] 3.7 g/dL 2.2-4.2 [facility] Serum or plasma alanine zuniga otransferase (ALT) measurementOrdered By: Megan Mosqueda on 10-17-2024 ALT [Catalytic activity/Vol] 37 U/L 16-61 [facility] Serum or plasma albumin moe urement (mass/volume)Ordered By: Megan Mosqueda on 10-17-2024 Albumin [Mass/Vol] 3.6 g/dL 3.2-5.0 [facility] Serum or plasma alkaline alanna sphatase measurementOrdered By: Megan Mosqueda on 10-17-2024 ALP [Catalytic activity/Vol] 83 U/L 45-117 [facility] Serum or plasma calcium moe urement (mass/volume)Ordered By: Megan Mosqueda on 10-17-2024 Calcium [Mass/Vol] 8.9 mg/dL 8.5-10.1 [facility] Serum or plasma creatinine m easurement (mass/volume)Ordered By: Megan Mosqueda on 10-17-2024 Creatinine [Mass/Vol] 0.94 mg/dL 0.70-1.30 [facility] Comment on above: The validity of the calculated GFR & GFRAA in patients over 70 years has not been determined. Clinical correlation is essential. Serum or plasma urea nitroge n measurement (mass/volume)Ordered By: Megan Mosqueda on 10-17-2024 Urea nitrogen [Mass/Vol] 8 mg/dL 7-18 [facility] Sodium levelOrdered By: Carmen Mosqueda on 10-17-2024 Sodium [Moles/Vol] 134 mmol/L Low 136-145 [facility] Total proteinOrdered By: Franco Mosqueda on 10-17-2024 Protein [Mass/Vol] 7.3 g/dL 6.4-8.2 [facility] White blood cell (WBC) count Ordered By: Megan Mosqueda on 10-17-2024 WBC (Bld) [#/Vol] 5.3 10*3/uL 4.4-11.0 [facility] Hemoglobin A1con 07-29-2024 HbA1c (Bld) [Mass fraction] 5.6 % Normal 3.8-5.6 [facility] Comment on above: Order Comment: Order Date: 07/28/24 Order Info: [id number] - A1C Result Comment: Norm al < 5.7 % Prediabetic 5.7 - 6.4 % Diabetic >or= 6.5 % Please note range changes. Performed By: #### L 501.9985, L501.9520, L501.5200, L500.4100 #### [facility] [address] [place], [place], [id number] Lipid Profileon 07-29-2024 Cholesterol [Mass/Vol] 199 mg/dL Normal 200 [facility] Comment on above: Order Comment: Order Date: 07/28/24 Order Info: [id number] - LIPID Order Info: [id number] - MG Order Info: [id number] - TSH Result Comment: <200 mg/dL Desirable 200-240 mg/dL Borderline >240 mg/dL High Risk Performed By: #### L 501.9985, L501.9520, L501.5200, L500.4100 #### [facility] [address] [place], [place], [id number] Cholesterol in HDL [Mass/Vol] 82 mg/dL Normal [facility] Comment on above: Order Comment: Order Date: 07/28/24 Order Info: [id number] - LIPID Order Info: [id number] - MG Order Info: [id number] - TSH Result Comment: The drugs N-Acetylcysteine and Metamizole may falsely depress this assay. Reference Range HDL <40 mg/dL Low HDL Cholesterol HDL >or= 60 mg/dL High HDL Cholesterol Performed By: #### L 501.9985, L501.9520, L501.5200, L500.4100 #### [facility] [address] [place], [address] Cholesterol in LDL [Mass/Vol] 105 mg/dL Normal 0-130 [facility] Comment on above: Order Comment: Order Date: 07/28/24 Order Info: [id number] - LIPID Order Info: [id number] - MG Order Info: [id number] - TSH Performed By: #### L 501.9985, L501.9520, L501.5200, L500.4100 #### [facility] [address] [place], [address] Cholesterol in VLDL [Mass/Vol] 12 mg/dL Normal 5-40 [facility] Comment on above: Order Comment: Order Date: 07/28/24 Order Info: [id number] - LIPID Order Info: [id number] - MG Order Info: [id number] - TSH Performed By: #### L 501.9985, L501.9520, L501.5200, L500.4100 #### [facility] [address] [place], [address] Triglyceride [Mass/Vol] 61 mg/dL Normal [facility] Comment on above: Order Comment: Order Date: 07/28/24 Order Info: [id number] - LIPID Order Info: [id number] - MG Order Info: [id number] - TSH Result Comment: The drugs N-Acetylcysteine and Metamizole may falsely depress this assay. Serum Triglycerides Reference Interval Normal <150 mg/dL Borderline high 150 - 199 mg/dL High 200 - 499 mg/dL Very High > or = 500 mg/dL Performed By: #### L 501.9985, L501.9520, L501.5200, L500.4100 #### [facility] [address] [place], [address] Magnesiumon 07-29-2024 Magnesium [Mass/Vol] 2.5 mg/dL Normal 1.6-2.6 [facility] Comment on above: Order Comment: Order Date: 07/28/24 Order Info: [id number] - LIPID Order Info: [id number] - MG Order Info: [id number] - TSH Performed By: #### L 501.9985, L501.9520, L501.5200, L500.4100 #### [facility] [address] [place], [address] Thyroid Stim Hormone (TSH)on 07-29-2024 TSH 0.852 uIU/mL Normal 0.358-3.740 [facility] Comment on above: Order Comment: Order Date: 07/28/24 Order Info: [id number] - LIPID Order Info: [id number] - MG Order Info: 3 - TSH Performed By: #### L 501.9985, L501.9520, L501.5200, L500.4100 #### [facility] [address] [place], [address] Urinalysis, Completeon 07-29 BACTERIA 0 SEEN Normal None Seen [facility] Comment on above: Order Comment: CLEAN CATCH Performed By: #### L 500.4050, L100.0100 #### [facility] [address] [place], [address] EPI,SQUAMOUS 0 SEEN Normal 0-5 [facility] Comment on above: Order Comment: CLEAN CATCH Performed By: #### L 500.4050, L100.0100 #### [facility] [address] [place], [address] Mucus Ql (Urine sed) 0 SEEN Normal [facility] Comment on above: Order Comment: CLEAN CATCH Performed By: #### L 500.4050, L100.0100 #### [facility] [address] [place], [address] RBC 0 SEEN Normal 0-5 [facility] Comment on above: Order Comment: CLEAN CATCH Performed By: #### L 500.4050, L100.0100 #### [facility] [address] [place], [address] WBC 0 SEEN Normal 0-5 [facility] Comment on above: Order Comment: CLEAN CATCH Performed By: #### L 500.4050, L100.0100 #### [facility] [address] [place], [address] CBC W/Diff, Automatedon 06-20 Absolute Lymph 1.65 X10 3/uL Normal 0.83-4.51 [facility] Comment on above: Performed By: #### L 500.4050, L100.0100 #### [facility] [address] [place], [address] Absolute Neut 2.5 X10 3/uL Normal 2.0-7.7 [facility] Comment on above: Performed By: #### L 500.4050, L100.0100 #### [facility] [address] [place], [address] Basophils/100 WBC (Bld) 0.4 % Normal 0-1 [facility] Comment on above: Performed By: #### L 500.4050, L100.0100 #### [facility] [address] [place], [address] Eosinophils/100 WBC (Bld) 3.0 % Normal 0-5 [facility] Comment on above: Performed By: #### L 500.4050, L100.0100 #### [facility] [address] [place], [address] Erythrocyte distribution width (RBC) [Ratio] 13.1 % Normal 11.6-14.6 [facility] Comment on above: Performed By: #### L [id number], L100.0100 #### [facility] [address] [place], [address] Hematocrit (Bld) [Volume fraction] 49.5 % Normal 40-54 [facility] Comment on above: Performed By: #### L 500.4050, L100.0100 #### [facility] [address] [place], [address] Hemoglobin (Bld) [Mass/Vol] 16.3 g/dL Normal 13.0-16.5 [facility] Comment on above: Performed By: #### L 500.4050, L100.0100 #### [facility] [address] [place], [address] IG% 0.400 Normal 0.0-0.9 [facility] Comment on above: Result Comment: IG% - Immature Granulocytes (promyelocytes, myelocytes and metamyelocytes) > 1% indicates that a LEFT SHIFT is Present. Performed By: #### L 500.4050, L100.0100 #### [facility] [address] [place], [address] Lymphocytes/100 WBC (Bld) 33.3 % Normal 19-41 [facility] Comment on above: Performed By: #### L 500.4050, L100.0100 #### [facility] [address] [place], [address] MCH (RBC) [Entitic mass] 32.4 pg High 27.0-32.0 [facility] Comment on above: Performed By: #### L 500.4050, L100.0100 #### [facility] [address] [place], [address] MCHC (RBC) [Mass/Vol] 32.9 g/dL Normal 32-36 [facility] Comment on above: Performed By: #### L 500.4050, L100.0100 #### [facility] [address] [place], [address] MCV (RBC) [Entitic vol] 98.4 fL High 80-94 [facility] Comment on above: Performed By: #### L 500.4050, L100.0100 #### [facility] [address] [place], [address] Monocytes/100 WBC (Bld) 11.9 % High 0-10 [facility] Comment on above: Performed By: #### L 500.4050, L100.0100 #### [facility] [address] [place], [address] Neutrophils/100 WBC (Bld) 51.0 % Normal 47-70 [facility] Comment on above: Performed By: #### L 500.4050, L100.0100 #### [facility] [address] [place], [address] Nucleated RBC (Bld) [#/Vol] 0 10*3/uL Normal 0-5 [facility] Comment on above: Performed By: #### L 500.4050, L100.0100 #### [facility] [address] [place], [address] Platelet mean volume (Bld) [Entitic vol] 10.4 fL Normal 6.2-12.0 [facility] Comment on above: Performed By: #### L 500.4050, L100.0100 #### [facility] [address] [place], [address] Platelets (Bld) [#/Vol] 265 10*3/uL Normal 150-450 [facility] Comment on above: Performed By: #### L 500.4050, L100.0100 #### [facility] [address] [place], [address] RBC (Bld) [#/Vol] 5.03 10*6/uL Normal 4.6-6.2 [facility] Comment on above: Performed By: #### L 500.4050, L100.0100 #### [facility] [address] [place], [address] RDW SD 47.8 fl High 35.1-43.9 [facility] Comment on above: Performed By: #### L 500.4050, L100.0100 #### [facility] [address] [place], [address] WBC (Bld) [#/Vol] 5.0 10*3/uL Normal 4.4-11.0 [facility] Comment on above: Performed By: #### L 500.4050, L100.0100 #### [facility] [address] [place], [address] Comprehensive Metabolic Prof [facility] 07-15-2024 Albumin [Mass/Vol] 3.6 g/dL Normal 3.2-5.0 [facility] Comment on above: Performed By: #### L 500.4050, L100.0100 #### [facility] [address] [place], [address] Albumin/Globulin [Mass ratio] 0.9 {ratio} Normal 0.9-2.4 [facility] Comment on above: Performed By: #### L 500.4050, L100.0100 #### [facility] [address] [place], [address] ALK P 98 U/L Normal 45-117 [facility] Comment on above: Performed By: #### L 500.4050, L100.0100 #### [facility] [address] [place], [address] ALT [Catalytic activity/Vol] 43 U/L Normal 16-61 [facility] Comment on above: Performed By: #### L 500.4050, L100.0100 #### [facility] [address] [place], [address] AST [Catalytic activity/Vol] 26 U/L Normal 15-37 [facility] Comment on above: Performed By: #### L 500.4050, L100.0100 #### [facility] [address] [place], [address] Bilirubin [Mass/Vol] 1.00 mg/dL Normal 0.20-1.00 [facility] Comment on above: Result Comment: For patients on eltrombopag therapy, use of Dimension [place] TBIL is not recommended. Performed By: #### L 500.4050, L100.0100 #### [facility] [address] [place], [address] BUN/CRE 9.9 RATIO Low 10-20 [facility] Comment on above: Performed By: #### L 500.4050, L100.0100 #### [facility] [address] [place], [address] CA,Total 9.3 mg/dL Normal 8.5-10.1 [facility] Comment on above: Performed By: #### L 500.4050, L100.0100 #### [facility] [address] [place], [address] Chloride [Moles/Vol] 101 mmol/L Normal 98-107 [facility] Comment on above: Performed By: #### L 500.4050, L100.0100 #### [facility] [address] [place], [address] CO2 [Moles/Vol] 30.0 mmol/L Normal 21.0-32.0 [facility] Comment on above: Performed By: #### L 500.4050, L100.0100 #### [facility] [address] [place], [address] Creatinine [Mass/Vol] 0.91 mg/dL Normal 0.70-1.30 [facility] Comment on above: Result Comment: The validity of the calculated GFR GFRAA in patients over 70 years has not been determined. Clinical correlation is essential. Performed By: #### L 500.4050, L100.0100 #### [facility] [address] [place], [address] EST GFR - AA 108 mL/min Normal >60 [facility] Comment on above: Result Comment: Afri can [place] GFR Calc Performed By: #### L 500.4050, L100.0100 #### [facility] [address] [place], [address] GAP 5 Normal 5-15 [facility] Comment on above: Performed By: #### L 500.4050, L100.0100 #### [facility] [address] [place], [address] GFR/1.73 sq M.predicted among non-blacks MDRD (S/P/Bld) [Vol rate/Area] 89 mL/min/{1.73_m2} Normal >60 [facility] Comment on above: Result Comment: Non- GFR Calc Performed By: #### L 500.4050, L100.0100 #### [facility] [address] [place], [address] Globulin (S) [Mass/Vol] 3.8 g/dL Normal 2.2-4.2 [facility] Comment on above: Performed By: #### L 500.4050, L100.0100 #### [facility] [address] [place], [address] Glucose [Mass/Vol] 156 mg/dL High 74-106 [facility] Comment on above: Result Comment: Fast ing Glucose result greater than or equal to 126 mg/dL suggests DIABETES MELLITUS per A.D.A. criteria. Performed By: #### L 500.4050, L100.0100 #### [facility] [address] [place], [address] Potassium [Moles/Vol] 4.0 mmol/L Normal 3.5-5.1 [facility] Comment on above: Performed By: #### L 500.4050, L100.0100 #### [facility] [address] [place], [address] Sodium [Moles/Vol] 136 mmol/L Normal 136-145 [facility] Comment on above: Performed By: #### L 500.4050, L100.0100 #### [facility] [address] [place], [address] T PROT 7.4 g/dL Normal 6.4-8.2 [facility] Comment on above: Performed By: #### L 500.4050, L100.0100 #### [facility] [address] [place], [address] Urea nitrogen [Mass/Vol] 9 mg/dL Normal 7-18 [facility] Comment on above: Performed By: #### L 500.4050, L100.0100 #### [facility] [address] [place], [address] Absolute lymphocyte countOrd ered By: Megan Mosqueda on 01-27-2024 Lymphocytes Auto (Unsp spec) [#/Vol] 2.14 10*3/uL 0.83-4.51 [facility] Automated lymphocyte count a s percentage of total leukocytesOrdered By: Mgean Mosqueda on 01-27-2024 Lymphocytes/100 WBC Auto (Unsp spec) 36.1 % 19-41 [facility] Basophil percentageOrdered B y: Megan Mosqueda on 01-27-2024 Basophils/100 WBC (Bld) 0.8 % 0-1 [facility] Bilirubin [Mass/Vol] 0.80 mg/dL 0.20-1.00 [facility] Comment on above: For patients on eltr ombopag therapy, use of Dimension [place] TBIL is not recommended. Chloride [Moles/Vol] 102 mmol/L 98-107 [facility] Cholesterol [Mass/Vol] 220 mg/dL <200 [facility] Comment on above: <200 mg/dL Desirable 200-240 mg/dL Borderline >240 mg/dL High Risk Eosinophils/100 WBC (Bld) 3.2 % 0-5 [facility] Glucose [Mass/Vol] 133 mg/dL 74-106 [facility] Comment on above: Fasting Glucose resu lt greater than or equal to 126 mg/dL suggests DIABETES MELLITUS per A.D.A. criteria. Hemoglobin (Bld) [Mass/Vol] 16.1 g/dL 13.0-16.5 [facility] Monocytes/100 WBC (Bld) 10.1 % 0-10 [facility] Neutrophils (Bld) [#/Vol] 2.9 10*3/uL 2.0-7.7 [facility] Neutrophils/100 WBC (Bld) 49.5 % 47-70 [facility] Potassium [Moles/Vol] 4.4 mmol/L 3.5-5.1 [facility] Protein [Mass/Vol] 7.4 g/dL 6.4-8.2 [facility] Sodium [Moles/Vol] 134 mmol/L 136-145 [facility] Triglyceride [Mass/Vol] 93 mg/dL <199 [facility] Comment on above: The drugs N-Acetylcy steine and Metamizole may falsely depress this assay.Serum Triglycerides Reference Interval Normal <150 mg/dL Borderline high 150 - 199 mg/dL High 200 - 499 mg/dL Very High > or = 500 mg/dL WBC (Bld) [#/Vol] 5.9 10*3/uL 4.4-11.0 [facility] Determination of erythrocyte mean corpuscular volume (MCV)Ordered By: Megan Mosqueda on 01-27-2024 MCV (RBC) [Entitic vol] 98.2 fL 80-94 [facility] Erythrocyte distribution wid th ratioOrdered By: Megan Mosqueda on 01-27-2024 Erythrocyte distribution width (RBC) [Ratio] 12.9 % 11.6-14.6 [facility] Erythrocyte distribution wid th standard deviationOrdered By: Megan Mosqueda on 01-27-2024 Erythrocyte distribution width (RBC) [Entitic vol] 46.7 fL 35.1-43.9 [facility] Hematocrit Auto (Bld) [Volum e fraction]Ordered By: Megan Mosqueda on 01-27-2024 Hematocrit (Bld) [Volume fraction] 48.9 % 40-54 [facility] Immature granulocytes/100 WB C Auto (Bld)Ordered By: Megan Mosqueda on 01-27-2024 Immature granulocytes/100 WBC (Bld) 0.300 % 0.0-0.9 [facility] Comment on above: IG% - Immature Granu locytes (promyelocytes, myelocytes and metamyelocytes) > 1% indicates that a LEFT SHIFT is Present. Laboratory - Chemistry and C hemistry - challengeOrdered By: Megansandoval Mosqueda on 01-27-2024 Albumin/Globulin [Mass ratio] 0.9 {ratio} 0.9-2.4 [facility] ALP [Catalytic activity/Vol] 91 U/L 45-117 [facility] ALT [Catalytic activity/Vol] 47 U/L 16-61 [facility] Cholesterol in HDL [Mass/Vol] 74 mg/dL >40 [facility] Comment on above: The drugs N-Acetylcy steine and Metamizole may falsely depress this assay. Reference Range HDL <40 mg/dL Low HDL Cholesterol HDL >or= 60 mg/dL High HDL Cholesterol Cholesterol in LDL [Mass/Vol] 127 mg/dL 0-130 [facility] CO2 [Moles/Vol] 27.0 mmol/L 21.0-32.0 [facility] Globulin (S) [Mass/Vol] 3.8 g/dL 2.2-4.2 [facility] Urea nitrogen/Creatinine [Mass ratio] 12.8 mg/mg 10-20 [facility] - Hematology and Cell countsOrdered By: Megansandoval Mosqueda on 01-27-2024 MCH (RBC) [Entitic mass] 32.3 pg 27.0-32.0 [facility] MCHC (RBC) [Mass/Vol] 32.9 g/dL 32-36 [facility] Nucleated RBC/100 WBC (Bld) [Ratio] 0 % 0-5 [facility] Platelet mean volume (Bld) [Entitic vol] 10.5 fL 6.2-12.0 [facility] Platelets (Bld) [#/Vol] 249 10*3/uL 150-450 [facility] No Panel InformationOrdered By: Megan Mosqueda on 01-27-2024 Estimated GFR (MDRD) Amer 105 mL/min >60 [facility] Comment on above: GFR Calc Estimated GFR (MDRD) Non-Af Amer 87 mL/min >60 [facility] Comment on above: Non- GFR Calc VLDL Cholesterol 19 mg/dL 5-40 [facility] RBC Auto (Bld) [#/Vol]Ordere d By: Megan Mosqueda on 01-27-2024 RBC (Bld) [#/Vol] 4.98 10*6/uL 4.6-6.2 [facility] Serum or plasma calcium meo urement (mass/volume)Ordered By: Megan Mosqueda on 01-27-2024 Calcium [Mass/Vol] 8.9 mg/dL 8.5-10.1 [facility] Serum or plasma creatinine m easurement (mass/volume)Ordered By: Megan Mosqueda on 01-27-2024 Creatinine [Mass/Vol] 0.94 mg/dL 0.70-1.30 [facility] Comment on above: The validity of the calculated GFR & GFRAA in patients over 70 years has not been determined. Clinical correlation is essential. Serum or plasma thyroid stim ulating hormone (TSH) measurement (units/volume)Ordered By: Megan Mosqueda on 01-27-2024 TSH Qn 0.94 uIU/mL 0.358-3.74 [facility] Serum or plasma urea nitroge n measurement (mass/volume)Ordered By: Megan Mosqueda on 01-27-2024 Urea nitrogen [Mass/Vol] 12 mg/dL 7-18 [facility] Thin prep Papanicolaou smear with manual screeningOrdered By: Megan Mosqueda on 01-27-2024 Thin prep Papanicolaou smear with manual screening 3.6 g/dL 3.2-5.0 [facility] Thin prep Papanicolaou smear with manual screening 25 U/L 15-37 [facility] Thin prep Papanicolaou smear with manual screening 5 5-15 [facility] Thin prep Papanicolaou smear with manual screening 0.87 ng/dL 0.76-1.46 [facility] Qualitative QuantiFERON-TB g old in tube testOrdered By: Megan Mosqueda on 10-30-2023 M. tuberculosis tuberculin stim IFN-g Ql (Bld) 0.05 IU/mL . [facility] Thin prep Papanicolaou smear with manual screeningOrdered By: Megan Mosqueda on 10-30-2023 Thin prep Papanicolaou smear with manual screening Comment . [facility] Comment on above: QuantiFERON-TB Gold Plus is a qualitative indirect test forM tuberculosis infection (including disease) and isintended for use in conjunction with risk assessment,radiography, and other medical and diagnostic evaluations.The QuantiFERON-TB Gold Plus result is determined bysubtracting the Nil value from either TB antigen (Ag)value. The Mitogen tube serves as a control for the test. Thin prep Papanicolaou smear with manual screening 0.09 IU/mL . [facility] Thin prep Papanicolaou smear with manual screening 0.05 IU/mL . [facility] Thin prep Papanicolaou smear with manual screening > 10.00 IU/mL . [facility] Thin prep Papanicolaou smear with manual screening Negative Negative [facility] Comment on above: No response to M tub erculosis antigens detected.Infection with M tuberculosis is unlikely, but high riskindividuals should be considered for additional testing(ATS/IDSA/CDC Clinical Practice Guidelines, 2017). Thereference range is an Antigen minus Nil result of <0.35IU/mL.The specimen received for QuantiFERON testing was incubatedby the ordering institution. Specific procedures outlinedin our Directory of Services and in the package insert forthe QuantiFERON Gold (In Tube) test must be followed toenable for proper stimulation of cells for the productionof interferon gamma. Chemiluminescence immunoassaymethodologyPerformed at: [facility] [id number] Director: Jordan Mendes PhD, Phone: [phone] Absolute lymphocyte countOrd ered By: Megan Mosqueda on 10-16-2023 Lymphocytes Auto (Unsp spec) [#/Vol] 2.07 10*3/uL 0.83-4.51 [facility] Basophil percentageOrdered B y: Megan Mosqueda on 10-16-2023 Basophils/100 WBC (Bld) 0.5 % 0-1 [facility] Bilirubin [Mass/Vol] 1.10 mg/dL 0.20-1.00 [facility] Comment on above: For patients on eltr ombopag therapy, use of Dimension [place] TBIL is not recommended. Chloride [Moles/Vol] 103 mmol/L 98-107 [facility] Eosinophils/100 WBC (Bld) 2.6 % 0-5 [facility] Glucose [Mass/Vol] 144 mg/dL 74-106 [facility] Comment on above: Fasting Glucose resu lt greater than or equal to 126 mg/dL suggests DIABETES MELLITUS per A.D.A. criteria. Neutrophils (Bld) [#/Vol] 3.4 10*3/uL 2.0-7.7 [facility] Neutrophils/100 WBC (Bld) 53.3 % 47-70 [facility] Potassium [Moles/Vol] 4.4 mmol/L 3.5-5.1 [facility] Protein [Mass/Vol] 7.4 g/dL 6.4-8.2 [facility] Sodium [Moles/Vol] 136 mmol/L 136-145 [facility] WBC (Bld) [#/Vol] 6.4 10*3/uL 4.4-11.0 [facility] Blood erythrocytes count (nu mber/volume)Ordered By: Megan Mosqueda on 10-16-2023 RBC (Bld) [#/Vol] 5.16 10*6/uL 4.6-6.2 [facility] Blood hemoglobin measurement (mass/volume)Ordered By: Megan Mosqueda on 10-16-2023 Hemoglobin (Bld) [Mass/Vol] 16.8 g/dL 13.0-16.5 [facility] Blood lymphocytes/100 leukoc ytesOrdered By: Megan Mosqueda on 10-16-2023 Lymphocytes/100 WBC (Bld) 32.2 % 19-41 [facility] Blood monocytes/100 leukocyt esOrdered By: Megan Mosqueda on 10-16-2023 Monocytes/100 WBC (Bld) 10.9 % 0-10 [facility] Blood platelet mean volumeOr dered By: Megan Mosqueda on 10-16-2023 Platelet mean volume (Bld) [Entitic vol] 9.9 fL 6.2-12.0 [facility] Determination of erythrocyte mean corpuscular volume (MCV)Ordered By: Megansandoval Mosqueda on 10-16-2023 MCV (RBC) [Entitic vol] 99.2 fL 80-94 [facility] Hematocrit Auto (Bld) [Volum e fraction]Ordered By: Megansandoval Mosqueda on 10-16-2023 Hematocrit (Bld) [Volume fraction] 51.2 % 40-54 [facility] - Chemistry and C hemistry - challengeOrdered By: [facility] Panda on 10-16-2023 ALP [Catalytic activity/Vol] 95 U/L 45-117 [facility] ALT [Catalytic activity/Vol] 31 U/L 16-61 [facility] CO2 [Moles/Vol] 26.0 mmol/L 21.0-32.0 [facility] Globulin (S) [Mass/Vol] 3.8 g/dL 2.2-4.2 [facility] Urea nitrogen/Creatinine [Mass ratio] 9.3 mg/mg 10-20 [facility] - Hematology and Cell countsOrdered By: [facility] Panda on 10-16-2023 Erythrocyte distribution width (RBC) [Entitic vol] 47.5 fL 35.1-43.9 [facility] Erythrocyte distribution width (RBC) [Ratio] 12.9 % 11.6-14.6 [facility] Immature granulocytes/100 WBC (Bld) 0.500 % 0.0-0.9 [facility] Comment on above: IG% - Immature Granu locytes (promyelocytes, myelocytes and metamyelocytes) > 1% indicates that a LEFT SHIFT is Present. MCH (RBC) [Entitic mass] 32.6 pg 27.0-32.0 [facility] Nucleated RBC/100 WBC (Bld) [Ratio] 0 % 0-5 [facility] MCHC Auto (RBC) [Mass/Vol]Or dered By: Megansandoval Mosqueda on 10-16-2023 MCHC (RBC) [Mass/Vol] 32.8 g/dL 32-36 [facility] No Panel InformationOrdered By: Megan Mosqueda on 10-16-2023 Estimated GFR (MDRD) Amer 101 mL/min >60 [facility] Comment on above: GFR Calc Estimated GFR (MDRD) Non-Af Amer 83 mL/min >60 [facility] Comment on above: Non- GFR Calc Platelets bldOrdered By: Franco Mosqueda on 10-16-2023 Platelets (Bld) [#/Vol] 297 10*3/uL 150-450 [facility] Serum or plasma albumin moe urement (mass/volume)Ordered By: Megan Mosqueda on 10-16-2023 Albumin [Mass/Vol] 3.6 g/dL 3.2-5.0 [facility] Serum or plasma albumin/glob ulin mass ratioOrdered By: Megan Mosqueda on 10-16-2023 Albumin/Globulin [Mass ratio] 0.9 {ratio} 0.9-2.4 [facility] Serum or plasma calcium moe urement (mass/volume)Ordered By: Megan Mosqueda on 10-16-2023 Calcium [Mass/Vol] 8.8 mg/dL 8.5-10.1 [facility] Serum or plasma creatinine m easurement (mass/volume)Ordered By: Megan Mosqueda on 10-16-2023 Creatinine [Mass/Vol] 0.97 mg/dL 0.70-1.30 [facility] Comment on above: The validity of the calculated GFR & GFRAA in patients over 70 years has not been determined. Clinical correlation is essential. Serum or plasma urea nitroge n measurement (mass/volume)Ordered By: Megan Mosqueda on 10-16-2023 Urea nitrogen [Mass/Vol] 9 mg/dL 7-18 [facility] Thin prep Papanicolaou smear with manual screeningOrdered By: Megan Mosqueda on 10-16-2023 Thin prep Papanicolaou smear with manual screening 21 U/L 15-37 [facility] Thin prep Papanicolaou smear with manual screening 7 5-15 [facility] Absolute lymphocyte countOrd ered By: Megan Mosqueda on 07-16-2023 Lymphocytes Auto (Unsp spec) [#/Vol] 1.84 10*3/uL 0.83-4.51 [facility] Basophil percentageOrdered B y: Megan Mosqueda on 07-16-2023 Basophils/100 WBC (Bld) 0.9 % 0-1 [facility] Bilirubin [Mass/Vol] 0.90 mg/dL 0.20-1.00 [facility] Comment on above: For patients on eltr ombopag therapy, use of Dimension [place] TBIL is not recommended. Chloride [Moles/Vol] 104 mmol/L 98-107 [facility] Eosinophils/100 WBC (Bld) 3.3 % 0-5 [facility] Glucose [Mass/Vol] 166 mg/dL 74-106 [facility] Comment on above: Fasting Glucose resu lt greater than or equal to 126 mg/dL suggests DIABETES MELLITUS per A.D.A. criteria. Neutrophils (Bld) [#/Vol] 2.7 10*3/uL 2.0-7.7 [facility] Neutrophils/100 WBC (Bld) 50.4 % 47-70 [facility] Potassium [Moles/Vol] 4.4 mmol/L 3.5-5.1 [facility] Protein [Mass/Vol] 7.4 g/dL 6.4-8.2 [facility] Sodium [Moles/Vol] 136 mmol/L 136-145 [facility] WBC (Bld) [#/Vol] 5.4 10*3/uL 4.4-11.0 [facility] Blood erythrocytes count (nu mber/volume)Ordered By: Megan Mosqueda on 07-16-2023 RBC (Bld) [#/Vol] 4.96 10*6/uL 4.6-6.2 [facility] Blood hemoglobin measurement (mass/volume)Ordered By: Megan Mosqueda on 07-16-2023 Hemoglobin (Bld) [Mass/Vol] 16.3 g/dL 13.0-16.5 [facility] Blood lymphocytes/100 leukoc ytesOrdered By: Megan Mosqueda on 07-16-2023 Lymphocytes/100 WBC (Bld) 34.0 % 19-41 [facility] Blood monocytes/100 leukocyt esOrdered By: Megan Mosqueda on 07-16-2023 Monocytes/100 WBC (Bld) 10.7 % 0-10 [facility] Blood platelet mean volumeOr dered By: Megan Mosqueda on 07-16-2023 Platelet mean volume (Bld) [Entitic vol] 10.2 fL 6.2-12.0 [facility] Determination of erythrocyte mean corpuscular volume (MCV)Ordered By: Megan Mosqueda on 07-16-2023 MCV (RBC) [Entitic vol] 100.4 fL 80-94 [facility] Hematocrit Auto (Bld) [Volum e fraction]Ordered By: [facility] Panda on 07-16-2023 Hematocrit (Bld) [Volume fraction] 49.8 % 40-54 [facility] Laboratory - Chemistry and C hemistry - challengeOrdered By: Megansandoval Mosqueda on 07-16-2023 ALP [Catalytic activity/Vol] 88 U/L 45-117 [facility] ALT [Catalytic activity/Vol] 55 U/L 16-61 [facility] CO2 [Moles/Vol] 25.0 mmol/L 21.0-32.0 [facility] Globulin (S) [Mass/Vol] 3.7 g/dL 2.2-4.2 [facility] Urea nitrogen/Creatinine [Mass ratio] 8.6 mg/mg 10-20 [facility] Laboratory - Hematology and Cell countsOrdered By: [facility] Panda on 07-16-2023 Erythrocyte distribution width (RBC) [Entitic vol] 47.8 fL 35.1-43.9 [facility] Erythrocyte distribution width (RBC) [Ratio] 13.0 % 11.6-14.6 [facility] Immature granulocytes/100 WBC (Bld) 0.700 % 0.0-0.9 [facility] Comment on above: IG% - Immature Granu locytes (promyelocytes, myelocytes and metamyelocytes) > 1% indicates that a LEFT SHIFT is Present. MCH (RBC) [Entitic mass] 32.9 pg 27.0-32.0 [facility] Nucleated RBC/100 WBC (Bld) [Ratio] 0 % 0-5 [facility] MCHC Auto (RBC) [Mass/Vol]Or dered By: Megansandoval Mosqueda on 07-16-2023 MCHC (RBC) [Mass/Vol] 32.7 g/dL 32-36 [facility] No Panel InformationOrdered By: Megan Mosqueda on 07-16-2023 Estimated GFR (MDRD) Amer 92 mL/min >60 [facility] Comment on above: GFR Calc Estimated GFR (MDRD) Non-Af Amer 76 mL/min >60 [facility] Comment on above: Non- GFR Calc Platelets bldOrdered By: Franco Mosqueda on 07-16-2023 Platelets (Bld) [#/Vol] 266 10*3/uL 150-450 [facility] Serum or plasma albumin moe urement (mass/volume)Ordered By: Megan Mosqueda on 07-16-2023 Albumin [Mass/Vol] 3.7 g/dL 3.2-5.0 [facility] Serum or plasma albumin/glob ulin mass ratioOrdered By: Megan Mosqueda on 07-16-2023 Albumin/Globulin [Mass ratio] 1.0 {ratio} 0.9-2.4 [facility] Serum or plasma calcium moe urement (mass/volume)Ordered By: Megan Mosqueda on 07-16-2023 Calcium [Mass/Vol] 8.8 mg/dL 8.5-10.1 [facility] Serum or plasma creatinine m easurement (mass/volume)Ordered By: Megan Mosqueda on 07-16-2023 Creatinine [Mass/Vol] 1.05 mg/dL 0.70-1.30 [facility] Comment on above: The validity of the calculated GFR & GFRAA in patients over 70 years has not been determined. Clinical correlation is essential. Serum or plasma urea nitroge n measurement (mass/volume)Ordered By: Megan Mosqueda on 07-16-2023 Urea nitrogen [Mass/Vol] 9 mg/dL 7-18 [facility] Thin prep Papanicolaou smear with manual screeningOrdered By: Megan Mosqueda on 07-16-2023 Thin prep Papanicolaou smear with manual screening 27 U/L 15-37 [facility] Thin prep Papanicolaou smear with manual screening 7 5-15 [facility] Absolute lymphocyte countOrd ered By: Megan Mosqueda on 06-17-2023 Lymphocytes Auto (Unsp spec) [#/Vol] 1.78 10*3/uL 0.83-4.51 [facility] Basophil percentageOrdered B y: Megan Mosqueda on 06-17-2023 Basophils/100 WBC (Bld) 0.8 % 0-1 [facility] Bilirubin [Mass/Vol] 1.20 mg/dL 0.20-1.00 [facility] Comment on above: For patients on eltr ombopag therapy, use of Dimension [place] TBIL is not recommended. Chloride [Moles/Vol] 102 mmol/L 98-107 [facility] Eosinophils/100 WBC (Bld) 3.1 % 0-5 [facility] Glucose [Mass/Vol] 152 mg/dL 74-106 [facility] Comment on above: Fasting Glucose resu lt greater than or equal to 126 mg/dL suggests DIABETES MELLITUS per A.D.A. criteria. Neutrophils (Bld) [#/Vol] 2.4 10*3/uL 2.0-7.7 [facility] Neutrophils/100 WBC (Bld) 48.1 % 47-70 [facility] Potassium [Moles/Vol] 4.4 mmol/L 3.5-5.1 [facility] Protein [Mass/Vol] 7.5 g/dL 6.4-8.2 [facility] Sodium [Moles/Vol] 134 mmol/L 136-145 [facility] WBC (Bld) [#/Vol] 4.9 10*3/uL 4.4-11.0 [facility] Blood erythrocytes count (nu mber/volume)Ordered By: Megan Mosqueda on 06-17-2023 RBC (Bld) [#/Vol] 5.03 10*6/uL 4.6-6.2 [facility] Blood hemoglobin measurement (mass/volume)Ordered By: Megan Mosqueda on 06-17-2023 Hemoglobin (Bld) [Mass/Vol] 16.7 g/dL 13.0-16.5 [facility] Blood lymphocytes/100 leukoc ytesOrdered By: Megan Mosqueda on 06-17-2023 Lymphocytes/100 WBC (Bld) 36.4 % 19-41 [facility] Blood monocytes/100 leukocyt esOrdered By: Megan Mosqueda on 06-17-2023 Monocytes/100 WBC (Bld) 11.2 % 0-10 [facility] Blood platelet mean volumeOr dered By: Megan Mosqueda on 06-17-2023 Platelet mean volume (Bld) [Entitic vol] 10.1 fL 6.2-12.0 [facility] Determination of erythrocyte mean corpuscular volume (MCV)Ordered By: Megan Mosqueda on 06-17-2023 MCV (RBC) [Entitic vol] 98.2 fL 80-94 [facility] Hematocrit Auto (Bld) [Volum e fraction]Ordered By: [facility] Panda on 06-17-2023 Hematocrit (Bld) [Volume fraction] 49.4 % 40-54 [facility] Laboratory - Chemistry and C hemistry - challengeOrdered By: [facility] Panda on 06-17-2023 ALP [Catalytic activity/Vol] 96 U/L 45-117 [facility] ALT [Catalytic activity/Vol] 51 U/L 16-61 [facility] CO2 [Moles/Vol] 28.0 mmol/L 21.0-32.0 [facility] Globulin (S) [Mass/Vol] 3.8 g/dL 2.2-4.2 [facility] Urea nitrogen/Creatinine [Mass ratio] 7.9 mg/mg 10-20 [facility] Laboratory - Hematology and Cell countsOrdered By: [facility] Panda on 06-17-2023 Erythrocyte distribution width (RBC) [Entitic vol] 45.2 fL 35.1-43.9 [facility] Erythrocyte distribution width (RBC) [Ratio] 12.5 % 11.6-14.6 [facility] Immature granulocytes/100 WBC (Bld) 0.400 % 0.0-0.9 [facility] Comment on above: IG% - Immature Granu locytes (promyelocytes, myelocytes and metamyelocytes) > 1% indicates that a LEFT SHIFT is Present. MCH (RBC) [Entitic mass] 33.2 pg 27.0-32.0 [facility] Nucleated RBC/100 WBC (Bld) [Ratio] 0 % 0-5 [facility] MCHC Auto (RBC) [Mass/Vol]Or dered By: Megan Mosqueda on 06-17-2023 MCHC (RBC) [Mass/Vol] 33.8 g/dL 32-36 [facility] No Panel InformationOrdered By: Megan Mosqueda on 06-17-2023 Estimated GFR (MDRD) Amer 96 mL/min >60 [facility] Comment on above: GFR Calc Estimated GFR (MDRD) Non-Af Amer 80 mL/min >60 [facility] Comment on above: Non- GFR Calc Platelets bldOrdered By: Franco Mosqueda on 06-17-2023 Platelets (Bld) [#/Vol] 242 10*3/uL 150-450 [facility] Serum or plasma albumin moe urement (mass/volume)Ordered By: Megan oMsqueda on 06-17-2023 Albumin [Mass/Vol] 3.7 g/dL 3.2-5.0 [facility] Serum or plasma albumin/glob ulin mass ratioOrdered By: Megan Mosqueda on 06-17-2023 Albumin/Globulin [Mass ratio] 1.0 {ratio} 0.9-2.4 [facility] Serum or plasma calcium moe urement (mass/volume)Ordered By: Megan Mosqueda on 06-17-2023 Calcium [Mass/Vol] 9.1 mg/dL 8.5-10.1 [facility] Serum or plasma creatinine m easurement (mass/volume)Ordered By: Megan Mosqueda on 06-17-2023 Creatinine [Mass/Vol] 1.01 mg/dL 0.70-1.30 [facility] Comment on above: The validity of the calculated GFR & GFRAA in patients over 70 years has not been determined. Clinical correlation is essential. Serum or plasma urea nitroge n measurement (mass/volume)Ordered By: Megan Mosqueda on 06-17-2023 Urea nitrogen [Mass/Vol] 8 mg/dL 7-18 [facility] Thin prep Papanicolaou smear with manual screeningOrdered By: Megan Mosqueda on 06-17-2023 Thin prep Papanicolaou smear with manual screening 30 U/L 15-37 [facility] Thin prep Papanicolaou smear with manual screening 4 5-15 [facility] Absolute lymphocyte countOrd ered By: Megan Mosqueda on 04-23-2023 Lymphocytes Auto (Unsp spec) [#/Vol] 1.45 10*3/uL 0.83-4.51 [facility] Basophil percentageOrdered B y: Megan Mosqueda on 04-23-2023 Basophils/100 WBC (Bld) 0.6 % 0-1 [facility] Bilirubin [Mass/Vol] 1.20 mg/dL 0.20-1.00 [facility] Comment on above: For patients on eltr ombopag therapy, use of Dimension [place] TBIL is not recommended. Chloride [Moles/Vol] 101 mmol/L 98-107 [facility] Eosinophils/100 WBC (Bld) 2.6 % 0-5 [facility] Glucose [Mass/Vol] 149 mg/dL 74-106 [facility] Comment on above: Fasting Glucose resu lt greater than or equal to 126 mg/dL suggests DIABETES MELLITUS per A.D.A. criteria. Neutrophils (Bld) [#/Vol] 2.5 10*3/uL 2.0-7.7 [facility] Neutrophils/100 WBC (Bld) 53.0 % 47-70 [facility] Potassium [Moles/Vol] 4.3 mmol/L 3.5-5.1 [facility] Protein [Mass/Vol] 7.9 g/dL 6.4-8.2 [facility] Sodium [Moles/Vol] 133 mmol/L 136-145 [facility] WBC (Bld) [#/Vol] 4.6 10*3/uL 4.4-11.0 [facility] Blood erythrocytes count (nu mber/volume)Ordered By: Megan Mosqueda on 04-23-2023 RBC (Bld) [#/Vol] 5.03 10*6/uL 4.6-6.2 [facility] Blood hemoglobin measurement (mass/volume)Ordered By: Megan Mosqueda on 04-23-2023 Hemoglobin (Bld) [Mass/Vol] 17.0 g/dL 13.0-16.5 [facility] Blood lymphocytes/100 leukoc ytesOrdered By: Megan Mosqueda on 04-23-2023 Lymphocytes/100 WBC (Bld) 31.3 % 19-41 [facility] Blood monocytes/100 leukocyt esOrdered By: Megan Mosqueda on 04-23-2023 Monocytes/100 WBC (Bld) 12.1 % 0-10 [facility] Blood platelet mean volumeOr dered By: Megan Mosqueda on 04-23-2023 Platelet mean volume (Bld) [Entitic vol] 9.3 fL 6.2-12.0 [facility] Determination of erythrocyte mean corpuscular volume (MCV)Ordered By: Megansandoval Mosqueda on 04-23-2023 MCV (RBC) [Entitic vol] 96.0 fL 80-94 [facility] Hematocrit Auto (Bld) [Volum e fraction]Ordered By: Megansandoval Mosqueda on 04-23-2023 Hematocrit (Bld) [Volume fraction] 48.3 % 40-54 [facility] Laboratory - Chemistry and C hemistry - challengeOrdered By: [facility] Panda on 04-23-2023 ALP [Catalytic activity/Vol] 104 U/L 45-117 [facility] ALT [Catalytic activity/Vol] 70 U/L 16-61 [facility] CO2 [Moles/Vol] 24.0 mmol/L 21.0-32.0 [facility] Globulin (S) [Mass/Vol] 4.0 g/dL 2.2-4.2 [facility] Urea nitrogen/Creatinine [Mass ratio] 8.4 mg/mg 10-20 [facility] Laboratory - Hematology and Cell countsOrdered By: [facility] Panda on 04-23-2023 Erythrocyte distribution width (RBC) [Entitic vol] 44.9 fL 35.1-43.9 [facility] Erythrocyte distribution width (RBC) [Ratio] 12.6 % 11.6-14.6 [facility] Immature granulocytes/100 WBC (Bld) 0.400 % 0.0-0.9 [facility] Comment on above: IG% - Immature Granu locytes (promyelocytes, myelocytes and metamyelocytes) > 1% indicates that a LEFT SHIFT is Present. MCH (RBC) [Entitic mass] 33.8 pg 27.0-32.0 [facility] Nucleated RBC/100 WBC (Bld) [Ratio] 0 % 0-5 [facility] MCHC Auto (RBC) [Mass/Vol]Or dered By: Megan Mosqueda on 04-23-2023 MCHC (RBC) [Mass/Vol] 35.2 g/dL 32-36 [facility] No Panel InformationOrdered By: Megan Mosqueda on 04-23-2023 Estimated GFR (MDRD) Amer 104 mL/min >60 [facility] Comment on above: GFR Calc Estimated GFR (MDRD) Non-Af Amer 86 mL/min >60 [facility] Comment on above: Non- GFR Calc Thyroid Stimulating Hormone (TSH) 1.20 uIU/mL 0.358-3.74 [facility] Platelets bldOrdered By: Franco Mosqueda on 04-23-2023 Platelets (Bld) [#/Vol] 231 10*3/uL 150-450 [facility] Serum or plasma albumin moe urement (mass/volume)Ordered By: Megan Mosqueda on 04-23-2023 Albumin [Mass/Vol] 3.9 g/dL 3.2-5.0 [facility] Serum or plasma albumin/glob ulin mass ratioOrdered By: Megan Mosqueda on 04-23-2023 Albumin/Globulin [Mass ratio] 1.0 {ratio} 0.9-2.4 [facility] Serum or plasma calcium moe urement (mass/volume)Ordered By: Megan Mosqueda on 04-23-2023 Calcium [Mass/Vol] 9.2 mg/dL 8.5-10.1 [facility] Serum or plasma creatinine m easurement (mass/volume)Ordered By: Megan Mosqueda on 04-23-2023 Creatinine [Mass/Vol] 0.95 mg/dL 0.70-1.30 [facility] Comment on above: The validity of the calculated GFR & GFRAA in patients over 70 years has not been determined. Clinical correlation is essential. Serum or plasma urea nitroge n measurement (mass/volume)Ordered By: Megan Mosqueda on 04-23-2023 Urea nitrogen [Mass/Vol] 8 mg/dL 7-18 [facility] Thin prep Papanicolaou smear with manual screeningOrdered By: Megan Mosqueda on 04-23-2023 Thin prep Papanicolaou smear with manual screening 47 U/L 15-37 [facility] Thin prep Papanicolaou smear with manual screening 8 5-15 [facility] Absolute lymphocyte countOrd ered By: Dr. Mosqueda on 03-19-2023 Lymphocytes Auto (Unsp spec) [#/Vol] 1.00 10*3/uL 0.83-4.51 [facility] Basophil percentageOrdered B y: Dr. Mosqueda on 03-19-2023 Basophils/100 WBC (Bld) 0.9 % 0-1 [facility] Bilirubin [Mass/Vol] 0.70 mg/dL 0.20-1.00 [facility] Comment on above: For patients on eltr ombopag therapy, use of Dimension [place] TBIL is not recommended. Chloride [Moles/Vol] 102 mmol/L 98-107 [facility] Eosinophils/100 WBC (Bld) 3.2 % 0-5 [facility] Glucose [Mass/Vol] 159 mg/dL 74-106 [facility] Comment on above: Fasting Glucose resu lt greater than or equal to 126 mg/dL suggests DIABETES MELLITUS per A.D.A. criteria. Neutrophils (Bld) [#/Vol] 1.9 10*3/uL 2.0-7.7 [facility] Neutrophils/100 WBC (Bld) 53.4 % 47-70 [facility] Potassium [Moles/Vol] 4.3 mmol/L 3.5-5.1 [facility] Protein [Mass/Vol] 7.4 g/dL 6.4-8.2 [facility] Sodium [Moles/Vol] 135 mmol/L 136-145 [facility] WBC (Bld) [#/Vol] 3.5 10*3/uL 4.4-11.0 [facility] Blood erythrocytes count (nu mber/volume)Ordered By: Dr. Mosqueda on 03-19-2023 RBC (Bld) [#/Vol] 4.92 10*6/uL 4.6-6.2 [facility] Blood hemoglobin measurement (mass/volume)Ordered By: Dr. Mosqueda on 03-19-2023 Hemoglobin (Bld) [Mass/Vol] 16.7 g/dL 13.0-16.5 [facility] Blood lymphocytes/100 leukoc ytesOrdered By: Dr. Mosqueda on 03-19-2023 Lymphocytes/100 WBC (Bld) 28.7 % 19-41 [facility] Blood monocytes/100 leukocyt esOrdered By: Dr. Mosqueda on 03-19-2023 Monocytes/100 WBC (Bld) 13.2 % 0-10 [facility] Blood platelet mean volumeOr dered By: Dr. Mosqueda on 03-19-2023 Platelet mean volume (Bld) [Entitic vol] 10.0 fL 6.2-12.0 [facility] Determination of erythrocyte mean corpuscular volume (MCV)Ordered By: Dr. Mosqueda on 03-19-2023 MCV (RBC) [Entitic vol] 99.4 fL 80-94 [facility] Hematocrit Auto (Bld) [Volum e fraction]Ordered By: Dr. Mosqueda on 03-19-2023 Hematocrit (Bld) [Volume fraction] 48.9 % 40-54 [facility] Laboratory - Chemistry and C hemistry - challengeOrdered By: Dr. Mosqueda on 03-19-2023 ALP [Catalytic activity/Vol] 92 U/L 45-117 [facility] ALT [Catalytic activity/Vol] 56 U/L 16-61 [facility] CO2 [Moles/Vol] 26.0 mmol/L 21.0-32.0 [facility] Globulin (S) [Mass/Vol] 3.8 g/dL 2.2-4.2 [facility] Urea nitrogen/Creatinine [Mass ratio] 8.8 mg/mg 10-20 [facility] Laboratory - Hematology and Cell countsOrdered By: Dr. Mosqueda on 03-19-2023 Erythrocyte distribution width (RBC) [Entitic vol] 47.6 fL 35.1-43.9 [facility] Erythrocyte distribution width (RBC) [Ratio] 12.9 % 11.6-14.6 [facility] Immature granulocytes/100 WBC (Bld) 0.600 % 0.0-0.9 [facility] Comment on above: IG% - Immature Granu locytes (promyelocytes, myelocytes and metamyelocytes) > 1% indicates that a LEFT SHIFT is Present. MCH (RBC) [Entitic mass] 33.9 pg 27.0-32.0 [facility] Nucleated RBC/100 WBC (Bld) [Ratio] 0 % 0-5 [facility] MCHC Auto (RBC) [Mass/Vol]Or dered By: Dr. Mosqueda on 03-19-2023 MCHC (RBC) [Mass/Vol] 34.2 g/dL 32-36 [facility] No Panel InformationOrdered By: Dr. Mosqueda on 03-19-2023 Estimated GFR (MDRD) Amer 95 mL/min >60 [facility] Comment on above: GFR Calc Estimated GFR (MDRD) Non-Af Amer 79 mL/min >60 [facility] Comment on above: Non- GFR Calc Platelets bldOrdered By: Dr. Mosqueda on 03-19-2023 Platelets (Bld) [#/Vol] 221 10*3/uL 150-450 [facility] Serum or plasma albumin moe urement (mass/volume)Ordered By: Dr. Mosqueda on 03-19-2023 Albumin [Mass/Vol] 3.6 g/dL 3.2-5.0 [facility] Serum or plasma albumin/glob ulin mass ratioOrdered By: Dr. Mosqueda on 03-19-2023 Albumin/Globulin [Mass ratio] 0.9 {ratio} 0.9-2.4 [facility] Serum or plasma calcium moe urement (mass/volume)Ordered By: Dr. Mosqueda on 03-19-2023 Calcium [Mass/Vol] 8.9 mg/dL 8.5-10.1 [facility] Serum or plasma creatinine m easurement (mass/volume)Ordered By: Dr. Mosqueda on 03-19-2023 Creatinine [Mass/Vol] 1.02 mg/dL 0.70-1.30 [facility] Comment on above: The validity of the calculated GFR & GFRAA in patients over 70 years has not been determined. Clinical correlation is essential. Serum or plasma urea nitroge n measurement (mass/volume)Ordered By: Dr. Mosqueda on 03-19-2023 Urea nitrogen [Mass/Vol] 9 mg/dL 7-18 [facility] Thin prep Papanicolaou smear with manual screeningOrdered By: Dr. Mosqueda on 03-19-2023 Thin prep Papanicolaou smear with manual screening 40 U/L 15-37 [facility] Thin prep Papanicolaou smear with manual screening 7 5-15 [facility] Absolute lymphocyte countOrd ered By: Dr. Mosqueda on 12-25-2022 Lymphocytes Auto (Unsp spec) [#/Vol] 1.68 10*3/uL 0.83-4.51 [facility] Basophil percentageOrdered B y: Dr. Mosqueda on 12-25-2022 Basophils/100 WBC (Bld) 0.8 % 0-1 [facility] Bilirubin [Mass/Vol] 0.70 mg/dL 0.20-1.00 [facility] Comment on above: For patients on eltr ombopag therapy, use of Dimension [place] TBIL is not recommended. Chloride [Moles/Vol] 101 mmol/L 98-107 [facility] Eosinophils/100 WBC (Bld) 2.4 % 0-5 [facility] Glucose [Mass/Vol] 151 mg/dL 74-106 [facility] Comment on above: Fasting Glucose resu lt greater than or equal to 126 mg/dL suggests DIABETES MELLITUS per A.D.A. criteria. Neutrophils (Bld) [#/Vol] 3.8 10*3/uL 2.0-7.7 [facility] Neutrophils/100 WBC (Bld) 60.3 % 47-70 [facility] Potassium [Moles/Vol] 4.6 mmol/L 3.5-5.1 [facility] Protein [Mass/Vol] 7.4 g/dL 6.4-8.2 [facility] Sodium [Moles/Vol] 134 mmol/L 136-145 [facility] WBC (Bld) [#/Vol] 6.2 10*3/uL 4.4-11.0 [facility] Blood erythrocytes count (nu mber/volume)Ordered By: Dr. Mosqueda on 12-25-2022 RBC (Bld) [#/Vol] 4.96 10*6/uL 4.6-6.2 [facility] Blood hemoglobin measurement (mass/volume)Ordered By: Dr. Mosqueda on 12-25-2022 Hemoglobin (Bld) [Mass/Vol] 16.2 g/dL 13.0-16.5 [facility] Blood lymphocytes/100 leukoc ytesOrdered By: Dr. Mosqueda on 12-25-2022 Lymphocytes/100 WBC (Bld) 26.9 % 19-41 [facility] Blood monocytes/100 leukocyt esOrdered By: Dr. Mosqueda on 12-25-2022 Monocytes/100 WBC (Bld) 9.1 % 0-10 [facility] Blood platelet mean volumeOr dered By: Dr. Mosqueda on 12-25-2022 Platelet mean volume (Bld) [Entitic vol] 10.0 fL 6.2-12.0 [facility] Determination of erythrocyte mean corpuscular volume (MCV)Ordered By: Dr. Mosqueda on 12-25-2022 MCV (RBC) [Entitic vol] 98.6 fL 80-94 [facility] Hematocrit Auto (Bld) [Volum e fraction]Ordered By: Dr. Mosqueda on 12-25-2022 Hematocrit (Bld) [Volume fraction] 48.9 % 40-54 [facility] Laboratory - Chemistry and C hemistry - challengeOrdered By: Dr. Mosqueda on 12-25-2022 ALP [Catalytic activity/Vol] 83 U/L 45-117 [facility] ALT [Catalytic activity/Vol] 44 U/L 16-61 [facility] CO2 [Moles/Vol] 28.0 mmol/L 21.0-32.0 [facility] Globulin (S) [Mass/Vol] 3.6 g/dL 2.2-4.2 [facility] Urea nitrogen/Creatinine [Mass ratio] 9.4 mg/mg 10-20 [facility] Laboratory - Hematology and Cell countsOrdered By: Dr. Mosqueda on 12-25-2022 Erythrocyte distribution width (RBC) [Entitic vol] 46.1 fL 35.1-43.9 [facility] Erythrocyte distribution width (RBC) [Ratio] 12.8 % 11.6-14.6 [facility] Immature granulocytes/100 WBC (Bld) 0.500 % 0.0-0.9 [facility] Comment on above: IG% - Immature Granu locytes (promyelocytes, myelocytes and metamyelocytes) > 1% indicates that a LEFT SHIFT is Present. MCH (RBC) [Entitic mass] 32.7 pg 27.0-32.0 [facility] Nucleated RBC/100 WBC (Bld) [Ratio] 0 % 0-5 [facility] MCHC Auto (RBC) [Mass/Vol]Or dered By: Dr. Mosqueda on 12-25-2022 MCHC (RBC) [Mass/Vol] 33.1 g/dL 32-36 [facility] No Panel InformationOrdered By: Dr. Mosqueda on 12-25-2022 Estimated GFR (MDRD) Amer 91 mL/min >60 [facility] Comment on above: GFR Calc Estimated GFR (MDRD) Non-Af Amer 75 mL/min >60 [facility] Comment on above: Non- GFR Calc Platelets bldOrdered By: Dr. Mosqueda on 12-25-2022 Platelets (Bld) [#/Vol] 230 10*3/uL 150-450 [facility] Serum or plasma albumin moe urement (mass/volume)Ordered By: Dr. Mosqueda on 12-25-2022 Albumin [Mass/Vol] 3.8 g/dL 3.2-5.0 [facility] Serum or plasma albumin/glob ulin mass ratioOrdered By: Dr. Mosqueda on 12-25-2022 Albumin/Globulin [Mass ratio] 1.1 {ratio} 0.9-2.4 [facility] Serum or plasma calcium moe urement (mass/volume)Ordered By: Dr. Mosqueda on 12-25-2022 Calcium [Mass/Vol] 9.4 mg/dL 8.5-10.1 [facility] Serum or plasma creatinine m easurement (mass/volume)Ordered By: Dr. Mosqueda on 12-25-2022 Creatinine [Mass/Vol] 1.06 mg/dL 0.70-1.30 [facility] Comment on above: The validity of the calculated GFR & GFRAA in patients over 70 years has not been determined. Clinical correlation is essential. Serum or plasma urea nitroge n measurement (mass/volume)Ordered By: Dr. Mosqueda on 12-25-2022 Urea nitrogen [Mass/Vol] 10 mg/dL 7-18 [facility] Thin prep Papanicolaou smear with manual screeningOrdered By: Dr. Mosqueda on 12-25-2022 Thin prep Papanicolaou smear with manual screening 24 U/L 15-37 [facility] Thin prep Papanicolaou smear with manual screening 5 5-15 [facility] Absolute lymphocyte countOrd ered By: Dr. Mosqueda on 09-26-2022 Lymphocytes Auto (Unsp spec) [#/Vol] 1.77 10*3/uL 0.83-4.51 [facility] Basophil percentageOrdered B y: Dr. Mosqueda on 09-26-2022 Basophils/100 WBC (Bld) 0.6 % 0-1 [facility] Bilirubin [Mass/Vol] 0.80 mg/dL 0.20-1.00 [facility] Comment on above: For patients on eltr ombopag therapy, use of Dim[place] TBIL is not recommended. Chloride [Moles/Vol] 100 mmol/L 98-107 [facility] Eosinophils/100 WBC (Bld) 2.4 % 0-5 [facility] Glucose [Mass/Vol] 164 mg/dL 74-106 [facility] Comment on above: Fasting Glucose resu lt greater than or equal to 126 mg/dL suggests DIABETES MELLITUS per A.D.A. criteria. Neutrophils (Bld) [#/Vol] 2.6 10*3/uL 2.0-7.7 [facility] Neutrophils/100 WBC (Bld) 50.6 % 47-70 [facility] Potassium [Moles/Vol] 4.5 mmol/L 3.5-5.1 [facility] Protein [Mass/Vol] 6.9 g/dL 6.4-8.2 [facility] Sodium [Moles/Vol] 134 mmol/L 136-145 [facility] WBC (Bld) [#/Vol] 5.1 10*3/uL 4.4-11.0 [facility] Blood erythrocytes count (nu mber/volume)Ordered By: Dr. Mosqueda on 09-26-2022 RBC (Bld) [#/Vol] 4.90 10*6/uL 4.6-6.2 [facility] Blood hemoglobin measurement (mass/volume)Ordered By: Dr. Mosqueda on 09-26-2022 Hemoglobin (Bld) [Mass/Vol] 16.3 g/dL 13.0-16.5 [facility] Blood lymphocytes/100 leukoc ytesOrdered By: Dr. Mosqueda on 09-26-2022 Lymphocytes/100 WBC (Bld) 34.8 % 19-41 [facility] Blood monocytes/100 leukocyt esOrdered By: Dr. Mosqueda on 09-26-2022 Monocytes/100 WBC (Bld) 11.2 % 0-10 [facility] Blood platelet mean volumeOr dered By: Dr. Mosqueda on 09-26-2022 Platelet mean volume (Bld) [Entitic vol] 9.8 fL 6.2-12.0 [facility] Determination of erythrocyte mean corpuscular volume (MCV)Ordered By: Dr. Mosqueda on 09-26-2022 MCV (RBC) [Entitic vol] 98.2 fL 80-94 [facility] Hematocrit Auto (Bld) [Volum e fraction]Ordered By: Dr. Mosqueda on 09-26-2022 Hematocrit (Bld) [Volume fraction] 48.1 % 40-54 [facility] Laboratory - Chemistry and C hemistry - challengeOrdered By: Dr. Mosqueda on 09-26-2022 ALP [Catalytic activity/Vol] 97 U/L 45-117 [facility] ALT [Catalytic activity/Vol] 35 U/L 16-61 [facility] CO2 [Moles/Vol] 27.0 mmol/L 21.0-32.0 [facility] Globulin (S) [Mass/Vol] 3.1 g/dL 2.2-4.2 [facility] Urea nitrogen/Creatinine [Mass ratio] 9.7 mg/mg 10-20 [facility] Laboratory - Hematology and Cell countsOrdered By: Dr. Mosqueda on 09-26-2022 Erythrocyte distribution width (RBC) [Entitic vol] 45.6 fL 35.1-43.9 [facility] Erythrocyte distribution width (RBC) [Ratio] 12.6 % 11.6-14.6 [facility] Immature granulocytes/100 WBC (Bld) 0.400 % 0.0-0.9 [facility] Comment on above: IG% - Immature Granu locytes (promyelocytes, myelocytes and metamyelocytes) > 1% indicates that a LEFT SHIFT is Present. MCH (RBC) [Entitic mass] 33.3 pg 27.0-32.0 [facility] Nucleated RBC/100 WBC (Bld) [Ratio] 0 % 0-5 [facility] MCHC Auto (RBC) [Mass/Vol]Or dered By: Dr. Mosqueda on 09-26-2022 MCHC (RBC) [Mass/Vol] 33.9 g/dL 32-36 [facility] No Panel InformationOrdered By: Dr. Mosqueda on 09-26-2022 Estimated GFR (MDRD) Amer 94 mL/min >60 [facility] Comment on above: GFR Calc Estimated GFR (MDRD) Non-Af Amer 78 mL/min >60 [facility] Comment on above: Non- GFR Calc Platelets bldOrdered By: Dr. Mosqueda on 09-26-2022 Platelets (Bld) [#/Vol] 243 10*3/uL 150-450 [facility] Serum or plasma albumin moe urement (mass/volume)Ordered By: Dr. Mosqueda on 09-26-2022 Albumin [Mass/Vol] 3.8 g/dL 3.2-5.0 [facility] Serum or plasma albumin/glob ulin mass ratioOrdered By: Dr. Mosqueda on 09-26-2022 Albumin/Globulin [Mass ratio] 1.2 {ratio} 0.9-2.4 [facility] Serum or plasma calcium moe urement (mass/volume)Ordered By: Dr. Mosqueda on 09-26-2022 Calcium [Mass/Vol] 9.1 mg/dL 8.5-10.1 [facility] Serum or plasma creatinine m easurement (mass/volume)Ordered By: Dr. Mosqueda on 09-26-2022 Creatinine [Mass/Vol] 1.03 mg/dL 0.70-1.30 [facility] Comment on above: The validity of the calculated GFR & GFRAA in patients over 70 years has not been determined. Clinical correlation is essential. Serum or plasma urea nitroge n measurement (mass/volume)Ordered By: Dr. Mosqueda on 09-26-2022 Urea nitrogen [Mass/Vol] 10 mg/dL 7-18 [facility] Thin prep Papanicolaou smear with manual screeningOrdered By: Dr. Mosqueda on 09-26-2022 Thin prep Papanicolaou smear with manual screening 16 U/L 15-37 [facility] Thin prep Papanicolaou smear with manual screening 7 5-15 [facility] Absolute lymphocyte counton 07-18-2022 Lymphocytes Auto (Unsp spec) [#/Vol] 1.80 10*3/uL 0.83-4.51 [facility] Work Phone: [phone] Basophil percentageon 2021 Basophils/100 WBC (Bld) 1.1 % 0-1 [facility] Work Phone: [phone] Bilirubin [Mass/Vol] 0.70 mg/dL 0.20-1.00 [facility] Work Phone: [phone] Comment on above: For patients on eltr ombopag therapy, use of Dimension [place] TBIL is not recommended. Chloride [Moles/Vol] 102 mmol/L 98-107 [facility] Work Phone: [phone] Eosinophils/100 WBC (Bld) 3.5 % 0-5 [facility] Work Phone: Glucose [Mass/Vol] 118 mg/dL 74-106 [facility] Work Phone: [phone] Comment on above: Fasting Glucose resu lt from 100 to 125 mg/dL suggests IMPAIRED HOMEOSTASIS per A.D.A. criteria. Neutrophils (Bld) [#/Vol] 2.9 10*3/uL 2.0-7.7 [facility] Work Phone: [phone] Neutrophils/100 WBC (Bld) 52.5 % 47-70 [facility] Work Phone: [phone] Potassium [Moles/Vol] 4.3 mmol/L 3.5-5.1 [facility] Work Phone: Protein [Mass/Vol] 8.0 g/dL 6.4-8.2 [facility] Work Phone: Sodium [Moles/Vol] 136 mmol/L 136-145 [facility] Work Phone: WBC (Bld) [#/Vol] 5.5 10*3/uL 4.4-11.0 [facility] Work Phone: Blood erythrocytes count (nu mber/volume)on 07-18-2022 RBC (Bld) [#/Vol] 5.20 10*6/uL 4.6-6.2 [facility] Work Phone: Blood hemoglobin measurement (mass/volume)on 07-18-2022 Hemoglobin (Bld) [Mass/Vol] 17.1 g/dL 13.0-16.5 [facility] Work Phone: Blood lymphocytes/100 leukoc yteson 07-18-2022 Lymphocytes/100 WBC (Bld) 33.0 % 19-41 [facility] Work Phone: Blood monocytes/100 leukocyt eson 07-18-2022 Monocytes/100 WBC (Bld) 9.0 % 0-10 [facility] Work Phone: Blood platelet mean volumeon 07-18-2022 Platelet mean volume (Bld) [Entitic vol] 10.1 fL 6.2-12.0 [facility] Work Phone: Determination of erythrocyte mean corpuscular volume (MCV)on 07-18-2022 MCV (RBC) [Entitic vol] 97.9 fL 80-94 [facility] Work Phone: Hematocrit Auto (Bld) [Volum e fraction]on 07-18-2022 Hematocrit (Bld) [Volume fraction] 50.9 % 40-54 [facility] Work Phone: [phone] Laboratory - Chemistry and C hemistry - challengeon 07-18-2022 ALP [Catalytic activity/Vol] 97 U/L 45-117 [facility] Work Phone: ALT [Catalytic activity/Vol] 54 U/L 16-61 [facility] Work Phone: CO2 [Moles/Vol] 28.0 mmol/L 21.0-32.0 [facility] Work Phone: Globulin (S) [Mass/Vol] 4.1 g/dL 2.2-4.2 [facility] Work Phone: Urea nitrogen/Creatinine [Mass ratio] 9.8 mg/mg 10-20 [facility] Work Phone: Laboratory - Hematology and Cell countson 07-18-2022 Erythrocyte distribution width (RBC) [Entitic vol] 44.8 fL 35.1-43.9 [facility] Work Phone: Erythrocyte distribution width (RBC) [Ratio] 12.3 % 11.6-14.6 [facility] Work Phone: Immature granulocytes/100 WBC (Bld) 0.900 % 0.0-0.9 [facility] Work Phone: Comment on above: IG% - Immature Granu locytes (promyelocytes, myelocytes and metamyelocytes) > 1% indicates that a LEFT SHIFT is Present. MCH (RBC) [Entitic mass] 32.9 pg 27.0-32.0 [facility] Work Phone: Nucleated RBC/100 WBC (Bld) [Ratio] 0 % 0-5 [facility] Work Phone: MCHC Auto (RBC) [Mass/Vol]on 07-18-2022 MCHC (RBC) [Mass/Vol] 33.6 g/dL 32-36 [facility] Work Phone: No Panel Informationon 07-18 Estimated GFR (MDRD) Amer 96 mL/min >60 [facility] Work Phone: Comment on above: GFR Calc Estimated GFR (MDRD) Non-Af Amer 79 mL/min >60 [facility] Work Phone: Comment on above: Non- GFR Calc Platelets bldon 07-18-2022 Platelets (Bld) [#/Vol] 268 10*3/uL 150-450 [facility] Work Phone: [phone] Serum or plasma albumin moe urement (mass/volume)on 07-18-2022 Albumin [Mass/Vol] 3.9 g/dL 3.2-5.0 [facility] Work Phone: [phone] Serum or plasma albumin/glob ulin mass ratioon 07-18-2022 Albumin/Globulin [Mass ratio] 1.0 {ratio} 0.9-2.4 [facility] Work Phone: [phone] Serum or plasma calcium moe urement (mass/volume)on 07-18-2022 Calcium [Mass/Vol] 9.3 mg/dL 8.5-10.1 [facility] Work Phone: Serum or plasma creatinine m easurement (mass/volume)on 07-18-2022 Creatinine [Mass/Vol] 1.02 mg/dL 0.70-1.30 [facility] Work Phone: Comment on above: The validity of the calculated GFR & GFRAA in patients over 70 years has not been determined. Clinical correlation is essential. Serum or plasma urea nitroge n measurement (mass/volume)on 07-18-2022 Urea nitrogen [Mass/Vol] 10 mg/dL 7-18 [facility] Work Phone: Thin prep Papanicolaou smear with manual screeningon 07-18-2022 Thin prep Papanicolaou smear with manual screening 27 U/L 15-37 [facility] Work Phone: Thin prep Papanicolaou smear with manual screening 6 5-15 [facility] Work Phone: [phone] Absolute lymphocyte counton 04-23-2022 Lymphocytes Auto (Unsp spec) [#/Vol] 1.90 10*3/uL 0.83-4.51 [facility] Work Phone: [phone] Basophil percentageon 2021 Basophils/100 WBC (Bld) 1.0 % 0-1 [facility] Work Phone: [phone] Bilirubin [Mass/Vol] 0.80 mg/dL 0.20-1.00 [facility] Work Phone: [phone] Comment on above: For patients on eltr ombopag therapy, use of [place] TBIL is not recommended. Chloride [Moles/Vol] 102 mmol/L 98-107 [facility] Work Phone: Eosinophils/100 WBC (Bld) 4.3 % 0-5 [facility] Work Phone: Glucose [Mass/Vol] 108 mg/dL 74-106 [facility] Work Phone: [phone] Comment on above: Fasting Glucose resu lt from 100 to 125 mg/dL suggests IMPAIRED HOMEOSTASIS per A.D.A. criteria. Neutrophils (Bld) [#/Vol] 2.2 10*3/uL 2.0-7.7 [facility] Work Phone: Neutrophils/100 WBC (Bld) 43.9 % 47-70 [facility] Work Phone: Potassium [Moles/Vol] 4.2 mmol/L 3.5-5.1 [facility] Work Phone: Protein [Mass/Vol] 7.6 g/dL 6.4-8.2 [facility] Work Phone: Sodium [Moles/Vol] 135 mmol/L 136-145 [facility] Work Phone: WBC (Bld) [#/Vol] 4.9 10*3/uL 4.4-11.0 [facility] Work Phone: Blood erythrocytes count (nu mber/volume)on 04-23-2022 RBC (Bld) [#/Vol] 4.85 10*6/uL 4.6-6.2 [facility] Work Phone: Blood hemoglobin measurement (mass/volume)on 04-23-2022 Hemoglobin (Bld) [Mass/Vol] 16.4 g/dL 13.0-16.5 [facility] Work Phone: Blood lymphocytes/100 leukoc yteson 04-23-2022 Lymphocytes/100 WBC (Bld) 38.8 % 19-41 [facility] Work Phone: Blood monocytes/100 leukocyt eson 04-23-2022 Monocytes/100 WBC (Bld) 11.6 % 0-10 [facility] Work Phone: [phone] Blood platelet mean volumeon 04-23-2022 Platelet mean volume (Bld) [Entitic vol] 9.9 fL 6.2-12.0 [facility] Work Phone: Determination of erythrocyte mean corpuscular volume (MCV)on 04-23-2022 MCV (RBC) [Entitic vol] 97.9 fL 80-94 [facility] Work Phone: Hematocrit Auto (Bld) [Volum e fraction]on 04-23-2022 Hematocrit (Bld) [Volume fraction] 47.5 % 40-54 [facility] Work Phone: Laboratory - Chemistry and C hemistry - challengeon 04-23-2022 ALP [Catalytic activity/Vol] 97 U/L 45-117 [facility] Work Phone: ALT [Catalytic activity/Vol] 60 U/L 16-61 [facility] Work Phone: CO2 [Moles/Vol] 28.0 mmol/L 21.0-32.0 [facility] Work Phone: [phone] Globulin (S) [Mass/Vol] 3.7 g/dL 2.2-4.2 [facility] Work Phone: Urea nitrogen/Creatinine [Mass ratio] 9.0 mg/mg 10-20 [facility] Work Phone: Laboratory - Hematology and Cell countson 04-23-2022 Erythrocyte distribution width (RBC) [Entitic vol] 45.5 fL 35.1-43.9 [facility] Work Phone: Erythrocyte distribution width (RBC) [Ratio] 12.7 % 11.6-14.6 [facility] Work Phone: Immature granulocytes/100 WBC (Bld) 0.400 % 0.0-0.9 [facility] Work Phone: Comment on above: IG% - Immature Granu locytes (promyelocytes, myelocytes and metamyelocytes) > 1% indicates that a LEFT SHIFT is Present. MCH (RBC) [Entitic mass] 33.8 pg 27.0-32.0 [facility] Work Phone: Nucleated RBC/100 WBC (Bld) [Ratio] 0 % 0-5 [facility] Work Phone: MCHC Auto (RBC) [Mass/Vol]on 04-23-2022 MCHC (RBC) [Mass/Vol] 34.5 g/dL 32-36 [facility] Work Phone: No Panel Informationon 04-23 Estimated GFR (MDRD) Amer 112 mL/min >60 [facility] Work Phone: Comment on above: GFR Calc Estimated GFR (MDRD) Non-Af Amer 93 mL/min >60 [facility] Work Phone: Comment on above: Non- GFR Calc Platelets bldon 04-23-2022 Platelets (Bld) [#/Vol] 253 10*3/uL 150-450 [facility] Work Phone: Serum or plasma albumin moe urement (mass/volume)on 04-23-2022 Albumin [Mass/Vol] 3.9 g/dL 3.2-5.0 [facility] Work Phone: [phone] Serum or plasma albumin/glob ulin mass ratioon 04-23-2022 Albumin/Globulin [Mass ratio] 1.1 {ratio} 0.9-2.4 [facility] Work Phone: Serum or plasma calcium moe urement (mass/volume)on 04-23-2022 Calcium [Mass/Vol] 9.1 mg/dL 8.5-10.1 [facility] Work Phone: Serum or plasma creatinine m easurement (mass/volume)on 04-23-2022 Creatinine [Mass/Vol] 0.89 mg/dL 0.70-1.30 [facility] Work Phone: Comment on above: The validity of the calculated GFR & GFRAA in patients over 70 years has not been determined. Clinical correlation is essential. Serum or plasma urea nitroge n measurement (mass/volume)on 04-23-2022 Urea nitrogen [Mass/Vol] 8 mg/dL 7-18 [facility] Work Phone: Thin prep Papanicolaou smear with manual screeningon 04-23-2022 Thin prep Papanicolaou smear with manual screening 36 U/L 15-37 [facility] Work Phone: Thin prep Papanicolaou smear with manual screening 5 5-15 [facility] Work Phone: Absolute lymphocyte counton 02-18-2022 Lymphocytes Auto (Unsp spec) [#/Vol] 1.60 10*3/uL 0.83-4.51 [facility] Work Phone: Basophil percentageon 2021 Basophils/100 WBC (Bld) 0.9 % 0-1 [facility] Work Phone: Bilirubin [Mass/Vol] 0.90 mg/dL 0.20-1.00 [facility] Work Phone: Comment on above: For patients on eltr ombopag therapy, use of [place] TBIL is not recommended. Chloride [Moles/Vol] 100 mmol/L 98-107 [facility] Work Phone: Eosinophils/100 WBC (Bld) 3.1 % 0-5 [facility] Work Phone: Glucose [Mass/Vol] 134 mg/dL 74-106 [facility] Work Phone: Comment on above: Fasting Glucose resu lt greater than or equal to 126 mg/dL suggests DIABETES MELLITUS per A.D.A. criteria. Neutrophils (Bld) [#/Vol] 2.1 10*3/uL 2.0-7.7 [facility] Work Phone: Neutrophils/100 WBC (Bld) 47.0 % 47-70 [facility] Work Phone: Potassium [Moles/Vol] 4.2 mmol/L 3.5-5.1 [facility] Work Phone: Protein [Mass/Vol] 7.4 g/dL 6.4-8.2 [facility] Work Phone: Sodium [Moles/Vol] 133 mmol/L 136-145 [facility] Work Phone: WBC (Bld) [#/Vol] 4.5 10*3/uL 4.4-11.0 [facility] Work Phone: Blood erythrocytes count (nu mber/volume)on 02-18-2022 RBC (Bld) [#/Vol] 4.96 10*6/uL 4.6-6.2 [facility] Work [facility]: Blood hemoglobin measurement (mass/volume)on 02-18-2022 Hemoglobin (Bld) [Mass/Vol] 16.4 g/dL 13.0-16.5 [facility] Work Phone: Blood lymphocytes/100 leukoc yteson 02-18-2022 Lymphocytes/100 WBC (Bld) 35.6 % 19-41 [facility] Work Phone: Blood monocytes/100 leukocyt eson 02-18-2022 Monocytes/100 WBC (Bld) 12.7 % 0-10 [facility] Work Phone: Blood platelet mean volumeon 02-18-2022 Platelet mean volume (Bld) [Entitic vol] 10.4 fL 6.2-12.0 [facility] Work Phone: Determination of erythrocyte mean corpuscular volume (MCV)on 02-18-2022 MCV (RBC) [Entitic vol] 97.8 fL 80-94 [facility] Work Phone: Hematocrit Auto (Bld) [Volum e fraction]on 02-18-2022 Hematocrit (Bld) [Volume fraction] 48.5 % 40-54 [facility] Work Phone: [phone] Laboratory - Chemistry and C hemistry - challengeon 02-18-2022 ALP [Catalytic activity/Vol] 91 U/L 45-117 [facility] Work Phone: ALT [Catalytic activity/Vol] 38 U/L 16-61 [facility] Work Phone: [phone] CO2 [Moles/Vol] 26.0 mmol/L 21.0-32.0 [facility] Work Phone: [phone] Globulin (S) [Mass/Vol] 3.6 g/dL 2.2-4.2 [facility] Work Phone: [phone] Urea nitrogen/Creatinine [Mass ratio] 11.8 mg/mg 10-20 [facility] Work Phone: [phone] Laboratory - Hematology and Cell countson 02-18-2022 Erythrocyte distribution width (RBC) [Entitic vol] 46.7 fL 35.1-43.9 [facility] Work Phone: [phone] Erythrocyte distribution width (RBC) [Ratio] 13.2 % 11.6-14.6 [facility] Work Phone: [phone] Immature granulocytes/100 WBC (Bld) 0.700 % 0.0-0.9 [facility] Work Phone: [phone] Comment on above: IG% - Immature Granu locytes (promyelocytes, myelocytes and metamyelocytes) > 1% indicates that a LEFT SHIFT is Present. MCH (RBC) [Entitic mass] 33.1 pg 27.0-32.0 [facility] Work Phone: [phone] Nucleated RBC/100 WBC (Bld) [Ratio] 0 % 0-5 [facility] Work Phone: [phone] MCHC Auto (RBC) [Mass/Vol]on 02-18-2022 MCHC (RBC) [Mass/Vol] 33.8 g/dL 32-36 [facility] Work Phone: [phone] No Panel Informationon 02-18 Estimated GFR (MDRD) Amer 96 mL/min >60 [facility] Work Phone: Comment on above: GFR Calc Estimated GFR (MDRD) Non-Af Amer 79 mL/min >60 [facility] Work Phone: Comment on above: Non- GFR Calc Platelets bldon 02-18-2022 Platelets (Bld) [#/Vol] 247 10*3/uL 150-450 [facility] Work Phone: Serum or plasma albumin moe urement (mass/volume)on 02-18-2022 Albumin [Mass/Vol] 3.8 g/dL 3.2-5.0 [facility] Work Phone: Serum or plasma albumin/glob ulin mass ratioon 02-18-2022 Albumin/Globulin [Mass ratio] 1.1 {ratio} 0.9-2.4 [facility] Work Phone: Serum or plasma calcium moe urement (mass/volume)on 02-18-2022 Calcium [Mass/Vol] 9.0 mg/dL 8.5-10.1 [facility] Work Phone: Serum or plasma creatinine m easurement (mass/volume)on 02-18-2022 Creatinine [Mass/Vol] 1.02 mg/dL 0.70-1.30 [facility] Work Phone: Comment on above: The validity of the calculated GFR & GFRAA in patients over 70 years has not been determined. Clinical correlation is essential. Serum or plasma urea nitroge n measurement (mass/volume)on 02-18-2022 Urea nitrogen [Mass/Vol] 12 mg/dL 7-18 [facility] Work Phone: Thin prep Papanicolaou smear with manual screeningon 02-18-2022 Thin prep Papanicolaou smear with manual screening 21 U/L 15-37 [facility] Work Phone: Thin prep Papanicolaou smear with manual screening 7 5-15 [facility] Work Phone: Absolute lymphocyte counton 12-17-2021 Lymphocytes Auto (Unsp spec) [#/Vol] 1.76 10*3/uL 0.83-4.51 [facility] Work Phone: Basophil percentageon 2021 Basophils/100 WBC (Bld) 0.6 % 0-1 [facility] Work Phone: Bilirubin [Mass/Vol] 0.60 mg/dL 0.20-1.00 [facility] Work Phone: Comment on above: For patients on eltr ombopag therapy, use of Dim[place] TBIL is not recommended. Chloride [Moles/Vol] 102 mmol/L 98-107 [facility] Work Phone: Eosinophils/100 WBC (Bld) 3.7 % 0-5 [facility] Work Phone: Glucose [Mass/Vol] 151 mg/dL 74-106 [facility] Work Phone: Comment on above: Fasting Glucose resu lt greater than or equal to 126 mg/dL suggests DIABETES MELLITUS per A.D.A. criteria. Neutrophils (Bld) [#/Vol] 2.5 10*3/uL 2.0-7.7 [facility] Work Phone: Neutrophils/100 WBC (Bld) 50.9 % 47-70 [facility] Work Phone: Potassium [Moles/Vol] 4.3 mmol/L 3.5-5.1 [facility] Work Phone: Protein [Mass/Vol] 7.8 g/dL 6.4-8.2 [facility] Work Phone: Sodium [Moles/Vol] 136 mmol/L 136-145 [facility] Work Phone: WBC (Bld) [#/Vol] 4.9 10*3/uL 4.4-11.0 [facility] Work Phone: Blood erythrocytes count (nu mber/volume)on 12-17-2021 RBC (Bld) [#/Vol] 5.24 10*6/uL 4.6-6.2 [facility] Work Phone: Blood hemoglobin measurement (mass/volume)on 12-17-2021 Hemoglobin (Bld) [Mass/Vol] 17.4 g/dL 13.0-16.5 [facility] Work Phone: Blood lymphocytes/100 leukoc yteson 12-17-2021 Lymphocytes/100 WBC (Bld) 35.7 % 19-41 [facility] Work Phone: Blood monocytes/100 leukocyt eson 12-17-2021 Monocytes/100 WBC (Bld) 8.7 % 0-10 [facility] Work Phone: [phone] Blood platelet mean volumeon 12-17-2021 Platelet mean volume (Bld) [Entitic vol] 10.7 fL 6.2-12.0 [facility] Work Phone: Determination of erythrocyte mean corpuscular volume (MCV)on 12-17-2021 MCV (RBC) [Entitic vol] 94.1 fL 80-94 [facility] Work Phone: [phone] Erythrocyte sedimentation ra margaret 12-17-2021 ESR (Bld) [Velocity] 9 mm/h 0-20 [facility] Work Phone: [phone] Hematocrit Auto (Bld) [Volum e fraction]on 12-17-2021 Hematocrit (Bld) [Volume fraction] 49.3 % 40-54 [facility] Work Phone: [phone] Laboratory - Chemistry and C hemistry - challengeon 12-17-2021 ALP [Catalytic activity/Vol] 100 U/L 45-117 [facility] Work Phone: [phone] ALT [Catalytic activity/Vol] 39 U/L 16-61 [facility] Work Phone: [phone] CO2 [Moles/Vol] 27.0 mmol/L 21.0-32.0 [facility] Work Phone: [phone] Globulin (S) [Mass/Vol] 4.0 g/dL 2.2-4.2 [facility] Work Phone: Urea nitrogen/Creatinine [Mass ratio] 9.9 mg/mg 10-20 [facility] Work Phone: Laboratory - Hematology and Cell countson 12-17-2021 Erythrocyte distribution width (RBC) [Entitic vol] 42.5 fL 35.1-43.9 [facility] Work Phone: Erythrocyte distribution width (RBC) [Ratio] 12.1 % 11.6-14.6 [facility] Work Phone: Immature granulocytes/100 WBC (Bld) 0.400 % 0.0-0.9 [facility] Work Phone: Comment on above: IG% - Immature Granu locytes (promyelocytes, myelocytes and metamyelocytes) > 1% indicates that a LEFT SHIFT is Present. MCH (RBC) [Entitic mass] 33.2 pg 27.0-32.0 [facility] Work Phone: Nucleated RBC/100 WBC (Bld) [Ratio] 0 % 0-5 [facility] Work Phone: MCHC Auto (RBC) [Mass/Vol]on 12-17-2021 MCHC (RBC) [Mass/Vol] 35.3 g/dL 32-36 [facility] Work Phone: No Panel Informationon 12-17 Anti-Nuclear Antibody Screen Negative Negative [facility] Work Phone: Comment on above: Performed at: [address] [id number] Director: Jordan Mendes PhD, Phone: [phone] Estimated GFR (MDRD) Amer 97 mL/min >60 [facility] Work Phone: Comment on above: GFR Calc Estimated GFR (MDRD) Non-Af Amer 80 mL/min >60 [facility] Work Phone: Comment on above: Non- GFR Calc Hepatitis B Surface Antigen Non-Reactive Nonreactive [facility] Work Phone: Hepatitis C Antibody Non-Reactive Nonreactive [facility] Work Phone: Comment on above: Non Reactive: < 0.8 Equivocal: >/= 0.8 to < 1.0 Reactive: >/= 1.0The CDC recommends that a reactive/equivocal HCV antibody result be followed up by the HCV Nucleic Acid Amplificationtest (437267) Platelets bldon 12-17-2021 Platelets (Bld) [#/Vol] 260 10*3/uL 150-450 [facility] Work Phone: Qualitative QuantiFERON-TB g old in tube teston 12-17-2021 M. tuberculosis tuberculin stim IFN-g Ql (Bld) 0.04 IU/mL [facility] Work Phone: Serum cyclic citrullinated p eptide IgG antibody assay (units/volume)on 12-17-2021 Cyclic citrullinated peptide IgG Qn 8 units [facility] Work Phone: Comment on above: Negative <20 Weak po sitive 20 - 39 Moderate positive 40 - 59 Strong positive >59Performed at: [email or web address] [address] [id number] Director: Jordan Mendes PhD, Phone: [phone] at: [employer] [address] [id number] Director: Kate Gee MD, Phone: [phone] Serum hepatitis B virus surf hardeep antibody IgG detectionon 12-17-2021 HBV surface IgG Ql (S) Non-Reactive [facility] Work Phone: Comment on above: Non Reactive: Incons istent with immunity less than <10 mIU/mL Reactive: Consistent with immunity greater than or equal to 10 mIU/mL Serum or plasma C reactive p rotein measurement (mass/volume)on 12-17-2021 CRP [Mass/Vol] mg/L 0.0-3.0 [facility] Work Phone: Comment on above: C-Reactive Protein ( CRP) provides useful information for thediagnosis, therapy and monitoring of inflammatory processesand associated diseases. For the evaluation of Relative Riskfor Cardiovascular Disease, a High Sensitivity CRP (HSCRP)should be ordered. Serum or plasma albumin moe urement (mass/volume)on 12-17-2021 Albumin [Mass/Vol] 3.8 g/dL 3.2-5.0 [facility] Work Phone: Serum or plasma albumin/glob ulin mass ratioon 12-17-2021 Albumin/Globulin [Mass ratio] 1.0 {ratio} 0.9-2.4 [facility] Work Phone: Serum or plasma calcium moe urement (mass/volume)on 12-17-2021 Calcium [Mass/Vol] 9.0 mg/dL 8.5-10.1 [facility] Work Phone: Serum or plasma creatinine m easurement (mass/volume)on 12-17-2021 Creatinine [Mass/Vol] 1.01 mg/dL 0.70-1.30 [facility] Work Phone: Comment on above: The validity of the calculated GFR & GFRAA in patients over 70 years has not been determined. Clinical correlation is essential. Serum or plasma urea nitroge n measurement (mass/volume)on 12-17-2021 Urea nitrogen [Mass/Vol] 10 mg/dL 7-18 [facility] Work Phone: Serum rheumatoid factor dete ctionon 12-17-2021 Rheumatoid factor Ql (S) < 10.0 IU/mL <15 [facility] Work Phone: Thin prep Papanicolaou smear with manual screeningon 12-17-2021 Thin prep Papanicolaou smear with manual screening 23 U/L 15-37 [facility] Work Phone: Thin prep Papanicolaou smear with manual screening 7 5-15 [facility] Work Phone: Thin prep Papanicolaou smear with manual screening Comment [facility] Work Phone: Comment on above: The QuantiFERON-TB G old Plus result is determined bysubtracting the Nil value from either TB antigen (Ag) tube.The mitogen tube serves as a control for the test. Thin prep Papanicolaou smear with manual screening 0.03 IU/mL [facility] Work Phone: Thin prep Papanicolaou smear with manual screening 0.02 IU/mL [facility] Work Phone: Thin prep Papanicolaou smear with manual screening > 10.00 IU/mL [facility] Work Phone: Thin prep Papanicolaou smear with manual screening Negative Negative [facility] Work Phone: Comment on above: The specimen receive d for QuantiFERON testing was incubatedby the ordering institution. Specific procedures outlinedin our Directory of Services and in the package insert forthe QuantiFERON Gold (In Tube) test must be followed toenable for proper stimulation of cells for the productionof interferon gamma. Chemiluminescence immunoassaymethodology Vital Signs Date Time Vital Sign Value Performing Clinician Faci lity 01-13-2025 09:41-0400 Respiratory rate 16 /min Rod Leung MD Work Phone: [facility] 01-13-2025 09:10-0400 Diastolic blood pressure 77 mm[Hg] Rod Leung MD Work Phone: [facility] 01-13-2025 09:10-0400 Heart rate 85 /min Rod Leung MD Work Phone: [facility] 01-13-2025 09:10-0400 SaO2% (BldA) [Mass fraction] 97 % Rod Leung MD Work Phone: [facility] 01-13-2025 09:10-0400 Systolic blood pressure 120 mm[Hg] Rod Leung MD Work Phone: [facility] 01-13-2025 08:07-0400 Body mass index (BMI) [Ratio] 27.51 kg/m2 Rod Leung MD Work Phone: [facility] 01-13-2025 08:07-0400 Body temperature 96.8 [degF] Rod Leung MD Work Phone: [facility] 01-13-2025 08:07-0400 Body weight 102.5 kg Rod Leung MD Work Phone: [facility] 12-02-2024 08:09-0500 Body height 193 cm Tiki Michael BALL TRUING MACHINE OPERATOR.NURSING INFORMATICS ANALYST Work Phone: [facility] 12-02-2024 08:09-0500 Body mass index (BMI) [Ratio] 27.51 kg/m2 Tiki Michael BALL TRUING MACHINE OPERATOR.NURSING INFORMATICS ANALYST Work Phone: [facility] 12-02-2024 08:09-0500 Body temperature 98.01 [degF] Tiki Michael BALL TRUING MACHINE OPERATOR.NURSING INFORMATICS ANALYST Work Phone: [facility] 12-02-2024 08:09-0500 Body weight 102.51 kg Tiki Michael BALL TRUING MACHINE OPERATOR.NURSING INFORMATICS ANALYST Work Phone: [facility] 12-02-2024 08:09-0500 Diastolic blood pressure 78 mm[Hg] Tiki Michael BALL TRUING MACHINE OPERATOR.NURSING INFORMATICS ANALYST Work Phone: [facility] 12-02-2024 08:09-0500 Heart rate 114 /min Tiki Michael BALL TRUING MACHINE OPERATOR.NURSING INFORMATICS ANALYST Work Phone: [facility] 12-02-2024 08:09-0500 Respiratory rate 14 /min Tiki Michael BALL TRUING MACHINE OPERATOR.NURSING INFORMATICS ANALYST Work Phone: [facility] 12-02-2024 08:09-0500 SaO2% (BldA) [Mass fraction] 97 % Tiki Michael BALL TRUING MACHINE OPERATOR.NURSING INFORMATICS ANALYST Work Phone: [facility] 12-02-2024 08:09-0500 Systolic blood pressure 122 mm[Hg] Tiki Michael BALL TRUING MACHINE OPERATOR.NURSING INFORMATICS ANALYST Work Phone: [facility] 06-03-2024 08:00-0400 Body height 193 cm Du Guerrero MD MPH Work Phone: [facility] 06-03-2024 08:00-0400 Body mass index (BMI) [Ratio] 27.38 kg/m2 Du Guerrero MD MPH Work Phone: [facility] 06-03-2024 08:00-0400 Body weight 102.01 kg Du Guerrero MD MPH Work Phone: [facility] 06-03-2024 08:00-0400 Diastolic blood pressure 103 mm[Hg] Du Guerrero MD MPH Work Phone: [facility] Comment on above: reports he is in serious pain this nohelia albert 06-03-2024 08:00-0400 Heart rate 100 /min Du Guerrero MD MPH Work Phone: [facility] 06-03-2024 08:00-0400 SaO2% (BldA) [Mass fraction] 96 % Du Guerrero MD MPH Work Phone: [facility] 06-03-2024 08:00-0400 Systolic blood pressure 151 mm[Hg] Du Guerrero MD MPH Work Phone: [facility] Comment on above: reports he is in serious pain this nohelia albert 05-27-2024 11:28-0400 Body height 193 cm Du Guerrero MD MPH Work Phone: [facility] 05-27-2024 11:28-0400 Body mass index (BMI) [Ratio] 27.62 kg/m2 Du Guererro MD MPH Work Phone: [facility] 05-27-2024 11:28-0400 Body weight 102.92 kg Du Guerrero MD MPH Work Phone: [facility] 05-27-2024 11:28-0400 Diastolic blood pressure 93 mm[Hg] Du Guerrero MD MPH Work Phone: [facility] 05-27-2024 11:28-0400 Heart rate 103 /min Du Guerrero MD MPH Work Phone: [facility] 05-27-2024 11:28-0400 SaO2% (BldA) [Mass fraction] 94 % Du Guerrero MD MPH Work Phone: [facility] 05-27-2024 11:28-0400 Systolic blood pressure 138 mm[Hg] Du Guerrero MD MPH Work Phone: [facility] 05-06-2024 08:02-0400 Body height 195.6 cm Du Guerrero MD MPH Work Phone: [facility] 05-06-2024 08:02-0400 Body mass index (BMI) [Ratio] 26.96 kg/m2 Du Guerrero MD MPH Work Phone: [facility] 05-06-2024 08:02-0400 Body weight 103.13 kg Du Guerrero MD MPH Work Phone: [facility] 05-06-2024 08:02-0400 Diastolic blood pressure 98 mm[Hg] Du Guerrero MD MPH Work Phone: [facility] 05-06-2024 08:02-0400 Heart rate 97 /min Du Guerrero MD MPH Work Phone: [facility] 05-06-2024 08:02-0400 SaO2% (BldA) [Mass fraction] 97 % Du Guerrero MD MPH Work Phone: [facility] 05-06-2024 08:02-0400 Systolic blood pressure 132 mm[Hg] Du Guerrero MD MPH Work Phone: [facility] 04-01-2024 08:25-0400 Body height 195.6 cm Du Guerrero MD MPH Work Phone: [facility] 04-01-2024 08:25-0400 Body mass index (BMI) [Ratio] 27.43 kg/m2 Du Guerrero MD MPH Work Phone: [facility] 04-01-2024 08:25-0400 Body weight 104.92 kg Du Guerrero MD MPH Work Phone: [facility] 04-01-2024 08:25-0400 Diastolic blood pressure 94 mm[Hg] Du Guerrero MD MPH Work Phone: [facility] 04-01-2024 08:25-0400 Heart rate 104 /min Du Guerrero MD MPH Work Phone: [facility] 04-01-2024 08:25-0400 SaO2% (BldA) [Mass fraction] 96 % Du Guerrero MD MPH Work Phone: [facility] 04-01-2024 08:25-0400 Systolic blood pressure 140 mm[Hg] Du Guerrero MD MPH Work Phone: [facility] 10-02-2023 10:44-0500 Diastolic blood pressure 80 mm[Hg] Du Guerrero MD MPH Work Phone: [facility] 10-02-2023 10:44-0500 Heart rate 96 /min Du Guerrero MD MPH Work Phone: [facility] 10-02-2023 10:44-0500 SaO2% (BldA) [Mass fraction] 95 % Du Guerrero MD MPH Work Phone: [facility] 10-02-2023 10:44-0500 Systolic blood pressure 132 mm[Hg] Du Guerrero MD MPH Work Phone: [facility] 10-02-2023 10:19-0500 Body mass index (BMI) [Ratio] 26.99 kg/m2 Du Guerrero MD MPH Work Phone: [facility] 10-02-2023 10:19-0500 Body weight 103.24 kg Du Guerrero MD MPH Work Phone: [facility] 05-29-2023 07:52-0400 Body mass index (BMI) [Ratio] 26.44 kg/m2 Du Guerrero MD MPH Work Phone: [facility] 05-29-2023 07:52-0400 Body weight 101.15 kg Du Guerrero MD MPH Work Phone: [facility] 05-29-2023 07:52-0400 Diastolic blood pressure 80 mm[Hg] Du Guerrero MD MPH Work Phone: [facility] 05-29-2023 07:52-0400 Heart rate 91 /min Du Guerrero MD MPH Work Phone: [facility] 05-29-2023 07:52-0400 SaO2% (BldA) [Mass fraction] 94 % Du Guerrero MD MPH Work Phone: [facility] 05-29-2023 07:52-0400 Systolic blood pressure 150 mm[Hg] Du Guerrero MD MPH Work Phone: [facility] 04-17-2023 08:17-0400 Body height 195.6 cm Du Guerrero MD MPH Work Phone: [facility] 04-17-2023 08:17-0400 Body mass index (BMI) [Ratio] 26.78 kg/m2 Du Guerrero MD MPH Work Phone: [facility] 04-17-2023 08:17-0400 Body weight 102.42 kg Du Guerrero MD MPH Work Phone: [facility] 04-17-2023 08:17-0400 Diastolic blood pressure 98 mm[Hg] Du Guerrero MD MPH Work Phone: [facility] 04-17-2023 08:17-0400 Heart rate 113 /min Du Guerrero MD MPH Work Phone: [facility] Comment on above: Did smoke before he came in this morning 04-17-2023 08:17-0400 SaO2% (BldA) [Mass fraction] 96 % Du Guerrero MD MPH Work Phone: [facility] 04-17-2023 08:17-0400 Systolic blood pressure 163 mm[Hg] Du Guerrero MD MPH Work Phone: [facility] Encounters Encounter Date Encounter Type Care Provider Facility Start: 06-16-2025 ambulatory Fior Coats Facilit y:[facility] Start: 03-27-2025 End: 03-27-[address] Fior Coats MD Work Phone: [facility] Work Phone: Start: 03-27-2025 End: 03-27-[address] Megan Mosqueda MD -[facility] Work Phone: Start: 03-27-2025 End: 03-27-2025 ambulatory Megan Mosqueda Facility:[facility] Start: 03-10-2025 End: 03-10-[address] Fior Coats MD Work Phone: [facility] Work Phone: Start: 03-10-2025 End: 03-10-[address] Fior Coats MD -Laboratory [facility] Start: 03-10-2025 End: 03-10-2025 ambulatory Fior Coats Facility:[facility] Start: 01-22-2025 End: 01-22-2025 Telephone encounter Rod Leung MD Work Phone: General Surgery Comment on above: Results Start: 01-13-2025 End: 01-13-2025 ambulatory ROD LEUNG Facility:[facility] Start: 01-13-2025 End: 01-13-2025 Subsequent hospital visit by physician Rod Leung MD Work Phone: Ambulatory Surgery Comment on above: Screen for colon can cer [Z12.11] Start: 01-05-2025 End: 01-05-[address] Fior Coats MD Work Phone: [facility] Work Phone: Start: 01-05-2025 End: 01-05-[address] Megan Mosqueda MD -Laboratory, [place] Work Phone: Start: 01-05-2025 End: 01-05-2025 ambulatory Fior Coats Facility:[facility] Start: 12-02-2024 End: 12-02-2024 ambulatory TIKI ATKINSON Facility:[facility] Start: 12-02-2024 End: 12-02-2024 Patient encounter procedure Tiki Atkinson BALL TRUING MACHINE OPERATOR.NURSING INFORMATICS ANALYST Work Phone: General Surgery Comment on above: Screen for colon can cer (Primary Dx) Start: 10-17-2024 End: 10-17-[address] Megan Mosqueda MD -Laboratory, [place] Work Phone: Start: 10-17-2024 End: 10-17-[address] [facility] Start: 08-20-2024 ambulatory Fior Coats Facilit y:[facility] Start: 07-29-2024 End: 07-29-2024 ambulatory Fior Coats Facility:[facility] Start: 07-15-2024 End: 07-15-2024 ambulatory [facility] Facility:[facility] Start: 06-03-2024 End: 06-03-2024 Office outpatient visit 25 minutes Du Guerrero MD MPH Work Phone: [facility] Comment on above: Herpes zoster withou t complication; Primary hypertension; Tachycardia Start: 06-03-2024 End: 06-03-2024 ambulatory DU ALEX S [facility] Ambulatory Start: 05-27-2024 End: 05-27-2024 Office outpatient visit 15 minutes Du Guerrero MD MPH Work Phone: [facility] Comment on above: Herpes zoster withou t complication Start: 05-27-2024 End: 05-27-2024 ambulatory DU ALEX S [facility] Ambulatory Start: 05-21-2024 End: 05-21-2024 ambulatory DU Rios [facility] Start: 05-06-2024 End: 05-06-2024 Office outpatient visit 15 minutes Du Guerrero MD MPH Work Phone: [facility] Comment on above: Primary hypertension (Primary Dx) Start: 05-06-2024 End: 05-06-2024 ambulatory DULYNDA Rios [facility] Ambulatory Start: 04-01-2024 End: 04-01-2024 Office outpatient visit 15 minutes Du Guerrero MD MPH Work Phone: [facility] Comment on above: Impaired fasting glu cose (Primary Dx); Primary hypertension; Tachycardia Start: 04-01-2024 End: 04-01-2024 ambulatory DU ALEX Rios [facility] Ambulatory Start: 01-27-2024 End: 01-27-2024 ambulatory [facility] Work Phone: Start: 01-27-2024 End: 01-27-2024 Patient encounter procedure [facility] Work Phone: Start: 10-30-2023 End: 10-30-2023 ambulatory [facility] Work Phone: Start: 10-30-2023 End: 10-30-2023 Patient encounter procedure [facility] Work Phone: Start: 10-16-2023 End: 10-16-2023 Patient encounter procedure [facility] Work Phone: Start: 10-02-2023 End: 10-02-2023 Office outpatient visit 15 minutes Du Guerrero MD MPH Work Phone: [facility] Comment on above: Primary hypertension (Primary Dx); Tachycardia; Lipid screening Start: 10-02-2023 End: 10-02-2023 ambulatory DULYNDA Rios [facility] Ambulatory Start: 07-16-2023 End: 07-16-2023 Patient encounter procedure [facility] Work Phone: Start: 06-17-2023 End: 06-17-2023 ambulatory [facility] Work Phone: Start: 06-17-2023 End: 06-17-2023 Patient encounter procedure [facility] Work Phone: Start: 05-29-2023 End: 05-29-2023 Office outpatient visit 15 minutes Du Guerrero MD MPH Work Phone: [facility] Comment on above: Primary hypertension ; Tachycardia Start: 04-23-2023 End: 04-23-2023 ambulatory [facility] Work Phone: Start: 04-23-2023 End: 04-23-2023 Patient encounter procedure [facility] Work Phone: Start: 04-17-2023 End: 04-17-2023 Office outpatient new 45 minutes Du Guerrero MD MPH Work Phone: [facility] Comment on above: Encounter to [facility] (Primary Dx); Primary hypertension; Tachycardia Start: 04-07-2023 End: 04-07-2023 ambulatory [facility] Work Phone: Start: 04-07-2023 End: 04-07-2023 Patient encounter procedure [facility] Start: 03-19-2023 End: 03-19-2023 ambulatory [facility] Work Phone: Start: 03-19-2023 End: 03-19-2023 Patient encounter procedure [facility] Start: 12-25-2022 End: 12-25-2022 ambulatory [facility] Work Phone: Start: 12-25-2022 End: 12-25-2022 Patient encounter procedure [facility] Start: 09-26-2022 End: 09-26-2022 ambulatory [facility] Work Phone: Start: 09-26-2022 End: 09-26-2022 Patient encounter procedure [facility] Start: 07-18-2022 End: 07-18-2022 ambulatory [facility] Work Phone: Start: 07-18-2022 End: 07-18-2022 Patient encounter procedure [facility] Start: 04-23-2022 End: 04-23-2022 Patient encounter procedure [facility] Start: 02-18-2022 End: 02-18-2022 Patient encounter procedure [facility] Start: 12-17-2021 End: 12-17-2021 Patient encounter procedure [facility] Procedures Date Procedure Procedure Detail Performing Clinician Start: 03-10-2025 Prostate specific an tigen measurement Dr. Fior Coats MD Work Phone: Comment on above: This test was perfor med using the [employer] tPSA method. Measured values of a patient sample can vary depending on the testing procedure used. PSA values determined on patient samples by different testing procedures cannot be used interchangeably. If there is a change in PSA assays while monitoring therapy, sequential testing should be performed to confirm baseline values. Start: 01-13-2025 Colonoscopy Rod mujica MD Work Phone: Start: 01-05-2025 Urnls dip stick/tabl et reagent auto microscopy Dr. Fior Coats MD Work Phone: Start: 04-07-2023 Ultrasonography of abdomen Plan of Treatment Date Care Activity Detail Author Start: 01-13-2030 Screening for malign ant neoplasm of colon [facility] Start: 01-13-2025 End: 01-13-2025 Patient encounter procedure 01/13/2025 7:30 AM EDT Appointment Ambulatory Surgery [address] [place], [place] [id number] Rod Leung MD [address], [place] [id number] Screen for colon cancer [Z12.11] Ambulatory Surgery Comment on above: Screen for colon can cer [Z12.11] Start: 01-02-2025 End: 01-02-2025 Patient encounter procedure 01/02/2025 8:00 AM EDT Office Visit Pulmonary Medicine [address] [place] [address] Leonela Goins APRN.NURSING INFORMATICS ANALYST [address] [place] [address] [facility] Comment on above: [facility] Start: 06-19-2024 Influenza vaccination [facility] Start: 06-03-2024 End: 06-03-2024 Patient encounter procedure 06/03/2024 8:00 AM EDT Office Visit [place] [address] [place] [address] Du Guerrero MD MPH [address] [facility], [address] [place] [address] [facility] Start: 04-01-2024 End: 04-01-2025 Hemoglobin A1c/Hemoglobin.total in Blood Hemoglobin A1C Lab Routine Impaired fasting glucose Expected: 04/01/2024 (Approximate), Expires: 04/01/2025 [facility] Service Area Work Phone: Comment on above: Expected: 04/01/2024 (Approximate), Expires: 04/01/2025 Start: 04-01-2024 End: 04-01-2024 Patient encounter procedure 04/01/2024 8:20 AM EDT Office Visit [facility] [address] [place] [address] Du Guerrero MD MPH [address] [facility], [address] [place] [address] [facility] Start: 01-18-2024 End: 10-02-2024 Lipid 1996 panel - Serum or Plasma Lipid Panel Lab Routine Lipid screening Expected: 01/18/2024 (Approximate), Expires: 10/02/2024 [facility] Service Area Work Phone: Comment on above: Expected: 01/18/2024 (Approximate), Expires: 10/02/2024 Start: 08-28-2023 End: 08-28-2023 Patient encounter procedure 08/28/2023 8:20 AM EST Office Visit [facility] [address] [place] [address] Du Guerrero MD MPH [address] [facility], [address] [place] [address] [facility] Start: 06-19-2023 COVID-19 Vaccine ( season) COVID-19 Vaccine ( season) [facility] Start: 06-19-2023 Influenza vaccination [facility] Start: 05-29-2023 End: 05-29-2023 Patient encounter procedure 05/29/2023 7:40 AM EDT Office Visit [facility] [address] [place] [address] Du Guerrero MD MPH [address] [facility], [address] [place] [address] [facility] Start: 04-17-2023 End: 04-17-2024 TSH with reflex to Free T4 if abnormal TSH with reflex to Free T4 if abnormal Lab Routine Primary hypertension Tachycardia Expected: 04/17/2023 (Approximate), Expires: 04/17/2024 [facility] Service Area Work Phone: Comment on above: Expected: 04/17/2023 (Approximate), Expires: 04/17/2024 Start: 2021 RSV patient s and/or patients aged 60+ years (1 - 1-dose 60+ series) RSV patients and/or patients aged 60+ years (1 - 1-dose 60+ series) [facility] Start: 2021 RSV Vaccine (1 - Ris k 60-74 years 1-dose series) RSV Vaccine (1 - Risk 60-74 years 1-dose series) [facility] Start: 2016 Prostate specific antigen measurement Prostate Cancer Screening Discussion [facility] Start: 2011 Zoster Vaccines (1 o f 2) Zoster Vaccines (1 of 2) [facility] Start: 2006 Diabetes Screening Diabetes Screenin g [facility] Start: 2006 Screening for malign ant neoplasm of colon [facility] Start: 1996 Lipid panel Lipid Screening [facility] Start: 1983 DTaP/Tdap/Td Vaccine s (1 - Tdap) DTaP/Tdap/Td Vaccines (1 - Tdap) [facility] Start: 1980 Pneumococcal Vaccine : 50+ (1 of 2 - PCV) Pneumococcal Vaccine: 50+ (1 of 2 - PCV) [facility] Start: 1980 Shingrix Vaccine (1 of 2) Shingrix Vaccine (1 of 2) [facility] Start: 1980 Urine microalbumin profile DTaP,Tdap,Td Vaccine (1 - Tdap) [facility] Start: 1979 Anxiety Screening Anxiety Screening [facility] Start: 1979 Depression Screening Depression Scre ening [facility] Start: 1979 Diabetes mellitus screening Diabetes Screening [facility] Start: 1979 Hepatitis C screening Hepatitis C Sc [facility] Start: 1979 HIV screening HIV Screening [facility] Start: 1967 Pneumococcal Vaccine : Pediatrics (0 to 5 Years) and At-Risk Patients (6 to 64 Years) (1 - PCV) Pneumococcal Vaccine: Pediatrics (0 to 5 Years) and At-Risk Patients (6 to 64 Years) (1 - PCV) [facility] Start: 1967 Pneumococcal Vaccine : Pediatrics (0 to 5 Years) and At-Risk Patients (6 to 64 Years) (1 of 2 - PCV) Pneumococcal Vaccine: Pediatrics (0 to 5 Years) and At-Risk Patients (6 to 64 Years) (1 of 2 - PCV) [facility] Start: 1966 Covid-19 Vaccine (#1) Covid-19 Vacci ne (#1) [facility] Start: 1962 MMR Vaccines (1 of 1 - Standard series) MMR Vaccines (1 of 1 - Standard series) [facility] Start: 04-04-1962 COVID-19 Vaccine (#1) COVID-19 Vacci ne (#1) [facility] Start: 1961 HIV screening HIV Screening [facility] Start: 1961 Lipid panel Lipid Panel [facility] Start: 1961 Yearly Adult Physical Yearly Adult P hysical [facility] End: 12-02-2025 Screening colonoscopy COLONOSCOPY SCREENING Endoscopy Routine Screen for colon cancer 1 Occurrences starting 12/02/2024 until 12/02/2025 [facility] Work Phone: Comment on above: 1 Occurrences starti ng 12/02/2024 until 12/02/2025 Screening colonoscopy COLONOSCOP Y SCREENING Endoscopy Routine Screen for colon cancer 01/13/2025 9:12 AM EDT [facility] Work Phone: Tissue Pathology bio psy report [facility] Work Phone: Comment on above: Release Upon Ctin g for 1 Occurrences starting 01/13/2025, 1 completed Payers Date Payer Category Payer Self-pay [id number] 2023 Private Health Insurance [id number] 2023 Private Health Insurance [id number] 2023 Private Health Insurance [id number] 2022 Unknown [id number] 2022 Unknown [id number] 1960 Unknown [id number] 2.16.8 [id number] 1961 Unknown [id number] 2.16.8 [id number] 1961 Unknown [id number] 2.16.8 [id number] 1961 Unknown [id number] 2.16.8 [id number] 1961 Unknown [id number] 2.16.8 [id number] 1960 Unknown [id number] 2.16.8 [id number] Unknown [id number] Unknown [id number] 2.16.8 [id number] Unknown [id number] 2.16.8 [id number] Unknown [id number] 2.16.8 [id number] Unknown [id number] 2.16.8 [id number] Unknown [id number] 2.16.8 [id number] Unknown [id number] 2.16.8 [id number] Unknown [id number] 2.16.8 [id number] Unknown [id number] 2.16.8 [id number] Social History Date Type Detail Facility Tobacco smoking stat [facility] Unknown if ever smoked [facility] Work Phone: Start: 1960 Sex Assigned At Male [facility] Start: 04-17-2023 End: 12-02-2024 Tobacco smoking status NHIS Smokes tobacco daily [facility] Work Phone: History of tobacco use Cigarette Smoker [facility] Work Phone: Start: 04-17-2023 End: 12-02-2024 Tobacco use and exposure Smokeless tobacco non-user [facility] Work Phone: Start: 04-17-2023 End: 01-13-2025 Alcohol intake Current drinker of alcohol (finding) [facility] Work Phone: Start: 04-17-2023 End: 01-13-2025 Alcohol intake [facility] Work Phone: Start: 04-17-2023 End: 01-13-2025 Tobacco use panel [facility] Work Phone: Start: 04-17-2023 Alcohol Comment every night [facility] Work Phone: Start: 1960 Sex Assigned At Not on file [facility] Work Phone: Start: 04-07-2023 End: 06-03-2024 Exposure to SARS-CoV-2 (event) Not sure [facility] Tobacco smoking stat us [facility] Unknown if ever smoked [facility] Work Phone: Start: 01-13-2025 Sex Male (finding) [facility] Clinical Notes 04-17-2023 to 01-22-2025 Telephone Encounter - Rod Leung MD - 01/22/2025 10:38 AM EDTTelephone Encounter - Rod Leung MD - 01/22/2025 10:38 AM Rod Gillette MD - 01/13/2025 8:30 AM EDT Note Date & Type Note Facility 01-22-2025 Telephone encounter Note FOLLOW UP ENDOSCOPY - RESULTS AND RECOMMENDATIONS NAME: Isidro De Oliveira Preciado [facility] NO.: [id number] : 1960 DATE: January 22, 2025 PRIMARY CARE PROVIDER: Fior Coats MD, MD Isidro Preciado is a patient referred for screening colonoscopy. I performed lower endoscopy on January 13, 2025. The patient was found to have: Lower Endoscopy Impression: - One 4 mm polyp in the rectum, removed with a cold biopsy forceps. Resected and retrieved. - Patent end-to-end ileo-rectal anastomosis, characterized by healthy appearing mucosa. - The examination was otherwise normal on direct and retroflexion views. Pathology demonstrated: FINAL DIAGNOSIS A. Rectum, polypectomy: - Tubular adenoma. IMPRESSION: adenomatous polyp PLAN: INSTRUCTIONS FOLLOWING A POLYP FOUND AT COLONOSCOPY You were found to have an adenomatous colon polyp. I recommend you undergo repeat endoscopy in 5 years. If you note bleeding, change in bowel habits, or other suspicious colon related symptoms before that time, those symptoms should be evaluated as necessary. If you have any difficulties or concerns, you should contact our office immediately. The patient is instructed to follow-up with your primary care provider I have instructed my staff to forward the above information to the patient and to the appropriate providers [facility] 01-22-2025 Miscellaneous Notes FOLLOW UP ENDOSCOPY - RESULTS AND RECOMMENDATIONS NAME: Isidro Preciado [facility] NO.: [id number] : 1960 DATE: January 22, 2025 PRIMARY CARE PROVIDER: Fior Coats MD, MD Isidro Preciado is a patient referred for screening colonoscopy. I performed lower endoscopy on January 13, 2025. The patient was found to have: Lower Endoscopy Impression: - One 4 mm polyp in the rectum, removed with a cold biopsy forceps. Resected and retrieved. - Patent end-to-end ileo-rectal anastomosis, characterized by healthy appearing mucosa. - The examination was otherwise normal on direct and retroflexion views. Pathology demonstrated: FINAL DIAGNOSIS A. Rectum, polypectomy: - Tubular adenoma. IMPRESSION: adenomatous polyp PLAN: INSTRUCTIONS FOLLOWING A POLYP FOUND AT COLONOSCOPY You were found to have an adenomatous colon polyp. I recommend you undergo repeat endoscopy in 5 years. If you note bleeding, change in bowel habits, or other suspicious colon related symptoms before that time, those symptoms should be evaluated as necessary. If you have any difficulties or concerns, you should contact our office immediately. The patient is instructed to follow-up with your primary care provider I have instructed my staff to forward the above information to the patient and to the appropriate providers documented in this encounter [facility] 01-13-2025 Note Formatting of this n ote might be different from the original. The patient received a copy of Colonoscopy discharge instructions that contain information for how to contact the physician who performed the procedure and when to seek medical care. [facility] 01-13-2025 Miscellaneous Notes The patient received a copy of Colonoscopy discharge instructions that contain information for how to contact the physician who performed the procedure and when to seek medical care. documented in this encounter [facility] 01-13-2025 Attending History and physical note UPDATED PROCEDURAL SEDATION HISTORY AND PHYSICAL EXAMINATION SERVICE DATE: 01/13/2025 SERVICE TIME: 8:20 AM PHYSICAL EXAM MUST BE COMPLETED ON ADMISSION PROCEDURE: Procedure Indications: The History and Physical (completed in the past 30 days) has been reviewed and the patient has been examined. The contents accurately reflect the patient's condition with the following additions or revisions since the H&P was completed. ASA Class: ASA Class: Patient with mild systemic disease Examination indicates no changes. AIRWAY: Airway Visualization of Uvula: Yes Mouth opening greater than 2 fingerbreadths: Yes Neck Full Range of Motion: Yes LUNGS: Lungs clear to auscultation CARDIAC: Regular rhythm,Regular rate Provisional Diagnosis/Treatment Plan: screening colonoscopy Sedation Goal: Moderate This H&P can be found in the attached. SIGNATURE: Rod Leung MD PATIENT NAME: Isidro Preciado DATE: January 13, 2025 TIME: 8:20 AM Source Note - Rod Leung MD - 01/13/2025 8:30 AM EDT HISTORY AND PHYSICAL Isidro Preciado : 1960 REFERRING PHYSICIAN: MD Jarek [address] [facility] [address] CHIEF COMPLAINT: Patient presents with: Consult: Colonscopy HPI: Isidro is a 64 year old male referred for endoscopy. Isidro notes due for screening colonoscopy. Isidro denies abdominal pain.. Isidro denies diarrhea. Isidro denies constipation. Isidro denies a change in bowel habits. Isidro denies melena. Isidro denies bright red blood per rectum. Isidro denies hemorrhoids. Isidro denies family history of colon issues. Isidro denies heartburn. Isidro denies dysphagia. Isidro denies a history of ulcers/ peptic ulcer disease. Isidro has hx of colon resection d/t perforated diverticulitis by Dr. Morales & Kulwant in 2009. Medical history is significant for HTN, RA. Denies CP, SOB, dizziness, palpitations, syncope, edema, recent hospitalizations Isidro has not undergone prior endoscopy. CURRENT MEDICATIONS Current Outpatient Medications Medication Sig amLODIPine (NORVASC) 10 mg tablet Take 10 mg by mouth once daily. folic acid 1 mg tablet Take 1 mg by mouth two times a day. (Patient taking differently: Take 1 mg by mouth two times a day.) methotrexate 2.5 mg tablet Take 2.5 mg by mouth. Five tablets once weekly guselkumab (TREMFYA) 100 mg/mL auto-injector Inject 100 mg subcutaneously every 8 weeks. peg 3350-Electrolytes (GOLYTELY) 236-22.74-6.74 -5.86 gram suspension Take 4,000 mL by mouth one time only for 1 dose. Refer to printed prep instructions from your provider. No current facility-administered medications for this visit. ALLERGIES: Patient has no known allergies. PAST MEDICAL HISTORY PAST MEDICAL HISTORY Diagnosis Date History of shingles HTN (hypertension) Hypertension Perforated diverticulum Psoriasis Rheumatoid arthritis (HCC) PAST SURGICAL HISTORY PAST SURGICAL HISTORY Procedure Laterality Date APPENDEC INDICATED PURPOSE OTH MAJOR PX NOT SPX 01/14/2010 COLONOSCOPY 12/2009 LAPAROSCOPY COLECTOMY PARTIAL W/ANASTOMOSIS 01/14/2010 LAPS MOBLJ SPLENIC FLXR PFRMD W/PRTL COLECTOMY 01/14/2010 FAMILY HISTORY FAMILY HISTORY Problem Relation Age of Onset other (diverticulitis) Mother Hypertension Mother No Known Problems Father No Known Problems Sister No Known Problems Maternal Grandmother Hypertension Maternal Grandfather Psoriasis Paternal Grandmother No Known Problems Paternal Grandfather SOCIAL HISTORY Social History Tobacco Use Smoking status: Every Day Current packs/day: 1.50 Types: Cigarettes Smokeless tobacco: Never Vaping Use Vaping status: Never Used Substance Use Topics Alcohol use: Yes Alcohol/week: 30.0 standard drinks of alcohol Types: 30 Cans of Beer (12oz) per week Drug use: Not Currently Types: Marijuana REVIEW OF SYMPTOMS: REVIEW OF SYSTEMS: General: The patient denies fatigue, denies weight loss, denies weight gain, denies feeling hot, and feelings of cold. Eyes: The patient denies glaucoma, denies eye injury/surgery, + glasses or contacts. Ear/Nose/Throat: The patient denies allergies, denies hayfever, denies ear infections, and denies bloody noses. Cardiovascular: The patient denies chest pain, denies heart disease, denies high blood pressure, denies high cholesterol, and denies poor circulation. Respiratory: The patient denies tuberculosis, denies pneumonia, denies frequent cough, denies shortness of breath, and denies coughing up blood. Gastrointestinal: The patient denies difficulty swallowing, denies acid reflux, denies ulcers, denies jaundice/hepatitis, denies gallbladder problems, denies vomiting, denies black or tarry stools, denies hemorrhoids, denies bleeding from rectum, denies diverticulitis, denies constipation, denies diarrhea, denies loss of stool control, and denies hernias. Kidney/Bladder: The patient denies kidney stones, denies urine infections, and denies bloody urine. Skin: The patient denies a history of skin cancer, denies bleeding/changing moles, and denies a history of skin rash. Neurologic: The patient denies a history of epilepsy/convulsions, denies headaches, denies head/spinal injuries, and denies stroke/TIA. Psychiatric: The patient denies psychiatric medications, denies depression, and denies voices. Endocrine: The patient denies thyroid disorders, denies diabetes, and denies hormonal problems. Hematologic: The patient denies a history of bruising, denies bleeding, and denies anemia. Infections: The patient denies a history of measles and mumps, denies rheumatic fever, and denies sexually transmitted diseases. Musculoskeletal: The patient denies back pain/injury, denies back problems, denies sciatica, denies knee/foot trouble, denies arthritis, or denies gout. PHYSICAL EXAMINATION: General: The patient is 64 year old, male well nourished, well hydrated in no acute distress. The patient is oriented to time, place, and person. VITALS: Blood pressure 122/78, pulse 114, temperature 36.7 C (98 F), temperature source Temporal, resp. rate 14, height 193 cm (6' 4), weight 102.5 kg (226 lb), SpO2 97%. Body mass index is 27.51 kg/m . HEENT: Normal cephalic, ataumatic, pupils are equally round, sclera are anicteric, mucous membranes are moist, oropharynx is clear. Neck has no masses, asymmetry or lymphadenopathy. Respiratory: Clear to auscultation and percussion. Normal respiratory excursion and pattern. Cardiac: Examination is regular rate and rhythm. Normal S1/S2 Abdominal exam: Soft, nontender, with no palpable masses. No hepatosplenomegaly. No palpable hernias. Extremities: no clubbing, cyanosis or edema. No adenopathy. LABORATORY VALUES: As Noted RADIOLOGIC STUDIES: As Noted Assessment IMPRESSION: screen for colon cancer PLAN: I have reviewed my findings with the surgeon. Will plan for lower endoscopy. We discussed the risks and benefits of the planned endoscopy. I have informed the patient that complications can occur including failure to complete the endoscopy and perforation. Isidro had the opportunity to ask questions concerning the planned endoscopy. My staff has also explained the procedure to the patient in understandable terms and has given the patient printed material concerning the procedure. Isidro freely consents to surgery. I plan to use Golytely bowel preparation I have explained to the patient the difference between IV conscious sedation and MAC anesthesia - and I have offered either, according to the patient's wishes. I have explained that with IV conscious sedation there is no anesthesia provider available and therefore there is a limitation of the amount of IV medications that can be given and that the patient may wake up in the middle of the procedure and/or experience pain/discomfort during the procedure. Further discussion was done and the patient was given the opportunity to ask questions and all questions were answered. Isidro chooses IV conscious sedation. Isidro was counseled that if there are changes in his/her medical condition, to let the office know if surgery should proceed. If there are changes in patient's medical condition from time of this encounter to the day of the procedure that preclude anesthesia, patient may have procedure cancelled for patient's safety. Diagnoses: (Z12.11) Screen for colon cancer (primary encounter diagnosis) Portions of this documentation were copied and pasted from previous office visit notes in order to provide a cohesive continuity of the history. The note has been reviewed and edited and updated as necessary. Tiki Atkinson APRN.NURSING INFORMATICS ANALYST [facility] 01-13-2025 History and physical note HISTORY AND PHYSICAL Isidro Preciado : 1960 REFERRING PHYSICIAN: MD Jarek Chase [facility] [address] [facility] [address] CHIEF COMPLAINT: Patient presents with: Consult: Colonscopy HPI: Isidro is a 64 year old male referred for endoscopy. Isidro notes due for screening colonoscopy. Isidro denies abdominal pain.. Isidro denies diarrhea. Isidro denies constipation. Isidro denies a change in bowel habits. Isidro denies melena. Isidro denies bright red blood per rectum. Isidro denies hemorrhoids. Isidro denies family history of colon issues. Isidro denies heartburn. Isidro denies dysphagia. Isidro denies a history of ulcers/ peptic ulcer disease. Isidro has hx of colon resection d/t perforated diverticulitis by Dr. Morales & Kulwant in 2009. Medical history is significant for HTN, RA. Denies CP, SOB, dizziness, palpitations, syncope, edema, recent hospitalizations Isidro has not undergone prior endoscopy. CURRENT MEDICATIONS Current Outpatient Medications Medication Sig amLODIPine (NORVASC) 10 mg tablet Take 10 mg by mouth once daily. folic acid 1 mg tablet Take 1 mg by mouth two times a day. (Patient taking differently: Take 1 mg by mouth two times a day.) methotrexate 2.5 mg tablet Take 2.5 mg by mouth. Five tablets once weekly guselkumab (TREMFYA) 100 mg/mL auto-injector Inject 100 mg subcutaneously every 8 weeks. peg 3350-Electrolytes (GOLYTELY) 236-22.74-6.74 -5.86 gram suspension Take 4,000 mL by mouth one time only for 1 dose. Refer to printed prep instructions from your provider. No current facility-administered medications for this visit. ALLERGIES: Patient has no known allergies. PAST MEDICAL HISTORY PAST MEDICAL HISTORY Diagnosis Date History of shingles HTN (hypertension) Hypertension Perforated diverticulum Psoriasis Rheumatoid arthritis (HCC) PAST SURGICAL HISTORY PAST SURGICAL HISTORY Procedure Laterality Date APPENDEC INDICATED PURPOSE OTH MAJOR PX NOT SPX 01/14/2010 COLONOSCOPY 12/2009 LAPAROSCOPY COLECTOMY PARTIAL W/ANASTOMOSIS 01/14/2010 LAPS MOBLJ SPLENIC FLXR PFRMD W/PRTL COLECTOMY 01/14/2010 FAMILY HISTORY FAMILY HISTORY Problem Relation Age of Onset other (diverticulitis) Mother Hypertension Mother No Known Problems Father No Known Problems Sister No Known Problems Maternal Grandmother Hypertension Maternal Grandfather Psoriasis Paternal Grandmother No Known Problems Paternal Grandfather SOCIAL HISTORY Social History Tobacco Use Smoking status: Every Day Current packs/day: 1.50 Types: Cigarettes Smokeless tobacco: Never Vaping Use Vaping status: Never Used Substance Use Topics Alcohol use: Yes Alcohol/week: 30.0 standard drinks of alcohol Types: 30 Cans of Beer (12oz) per week Drug use: Not Currently Types: Marijuana REVIEW OF SYMPTOMS: REVIEW OF SYSTEMS: General: The patient denies fatigue, denies weight loss, denies weight gain, denies feeling hot, and feelings of cold. Eyes: The patient denies glaucoma, denies eye injury/surgery, + glasses or contacts. Ear/Nose/Throat: The patient denies allergies, denies hayfever, denies ear infections, and denies bloody noses. Cardiovascular: The patient denies chest pain, denies heart disease, denies high blood pressure, denies high cholesterol, and denies poor circulation. Respiratory: The patient denies tuberculosis, denies pneumonia, denies frequent cough, denies shortness of breath, and denies coughing up blood. Gastrointestinal: The patient denies difficulty swallowing, denies acid reflux, denies ulcers, denies jaundice/hepatitis, denies gallbladder problems, denies vomiting, denies black or tarry stools, denies hemorrhoids, denies bleeding from rectum, denies diverticulitis, denies constipation, denies diarrhea, denies loss of stool control, and denies hernias. Kidney/Bladder: The patient denies kidney stones, denies urine infections, and denies bloody urine. Skin: The patient denies a history of skin cancer, denies bleeding/changing moles, and denies a history of skin rash. Neurologic: The patient denies a history of epilepsy/convulsions, denies headaches, denies head/spinal injuries, and denies stroke/TIA. Psychiatric: The patient denies psychiatric medications, denies depression, and denies voices. Endocrine: The patient denies thyroid disorders, denies diabetes, and denies hormonal problems. Hematologic: The patient denies a history of bruising, denies bleeding, and denies anemia. Infections: The patient denies a history of measles and mumps, denies rheumatic fever, and denies sexually transmitted diseases. Musculoskeletal: The patient denies back pain/injury, denies back problems, denies sciatica, denies knee/foot trouble, denies arthritis, or denies gout. PHYSICAL EXAMINATION: General: The patient is 64 year old, male well nourished, well hydrated in no acute distress. The patient is oriented to time, place, and person. VITALS: Blood pressure 122/78, pulse 114, temperature 36.7 C (98 F), temperature source Temporal, resp. rate 14, height 193 cm (6' 4), weight 102.5 kg (226 lb), SpO2 97%. Body mass index is 27.51 kg/m . HEENT: Normal cephalic, ataumatic, pupils are equally round, sclera are anicteric, mucous membranes are moist, oropharynx is clear. Neck has no masses, asymmetry or lymphadenopathy. Respiratory: Clear to auscultation and percussion. Normal respiratory excursion and pattern. Cardiac: Examination is regular rate and rhythm. Normal S1/S2 Abdominal exam: Soft, nontender, with no palpable masses. No hepatosplenomegaly. No palpable hernias. Extremities: no clubbing, cyanosis or edema. No adenopathy. LABORATORY VALUES: As Noted RADIOLOGIC STUDIES: As Noted Assessment IMPRESSION: screen for colon cancer PLAN: I have reviewed my findings with the surgeon. Will plan for lower endoscopy. We discussed the risks and benefits of the planned endoscopy. I have informed the patient that complications can occur including failure to complete the endoscopy and perforation. Isidro had the opportunity to ask questions concerning the planned endoscopy. My staff has also explained the procedure to the patient in understandable terms and has given the patient printed material concerning the procedure. Isidro freely consents to surgery. I plan to use Golytely bowel preparation I have explained to the patient the difference between IV conscious sedation and MAC anesthesia - and I have offered either, according to the patient's wishes. I have explained that with IV conscious sedation there is no anesthesia provider available and therefore there is a limitation of the amount of IV medications that can be given and that the patient may wake up in the middle of the procedure and/or experience pain/discomfort during the procedure. Further discussion was done and the patient was given the opportunity to ask questions and all questions were answered. Isidro chooses IV conscious sedation. Isidro was counseled that if there are changes in his/her medical condition, to let the office know if surgery should proceed. If there are changes in patient's medical condition from time of this encounter to the day of the procedure that preclude anesthesia, patient may have procedure cancelled for patient's safety. Diagnoses: (Z12.11) Screen for colon cancer (primary encounter diagnosis) Portions of this documentation were copied and pasted from previous office visit notes in order to provide a cohesive continuity of the history. The note has been reviewed and edited and updated as necessary. Tiki Atkinson APRN.NURSING INFORMATICS ANALYST [facility] 01-13-2025 History and physical note UPDATED PROCEDURAL SEDATION HISTORY AND PHYSICAL EXAMINATION SERVICE DATE: 01/13/2025 SERVICE TIME: 8:20 AM PHYSICAL EXAM MUST BE COMPLETED ON ADMISSION PROCEDURE: Procedure Indications: The History and Physical (completed in the past 30 days) has been reviewed and the patient has been examined. The contents accurately reflect the patient's condition with the following additions or revisions since the H&P was completed. ASA Class: ASA Class: Patient with mild systemic disease Examination indicates no changes. AIRWAY: Airway Visualization of Uvula: Yes Mouth opening greater than 2 fingerbreadths: Yes Neck Full Range of Motion: Yes LUNGS: Lungs clear to auscultation CARDIAC: Regular rhythm,Regular rate Provisional Diagnosis/Treatment Plan: screening colonoscopy Sedation Goal: Moderate This H&P can be found in the attached. SIGNATURE: Rod Leung MD PATIENT NAME: Isidro Preciado DATE: January 13, 2025 TIME: 8:20 AM Source Note - Rod Leung MD - 01/13/2025 8:30 AM EDT HISTORY AND PHYSICAL Isidro Preciado : 1960 REFERRING PHYSICIAN: MD Jarek Chase [address] [facility] [id number] CHIEF COMPLAINT: Patient presents with: Consult: Colonscopy HPI: Isidro is a 64 year old male referred for endoscopy. Isidro notes due for screening colonoscopy. Isidro denies abdominal pain.. Isidro denies diarrhea. Isidro denies constipation. Isidro denies a change in bowel habits. Isidro denies melena. Isidro denies bright red blood per rectum. Isidro denies hemorrhoids. Isidro denies family history of colon issues. Isidro denies heartburn. Isidro denies dysphagia. Isidro denies a history of ulcers/ peptic ulcer disease. Isidro has hx of colon resection d/t perforated diverticulitis by Dr. Morales & Kulwant in 2009. Medical history is significant for HTN, RA. Denies CP, SOB, dizziness, palpitations, syncope, edema, recent hospitalizations Isidro has not undergone prior endoscopy. CURRENT MEDICATIONS Current Outpatient Medications Medication Sig amLODIPine (NORVASC) 10 mg tablet Take 10 mg by mouth once daily. folic acid 1 mg tablet Take 1 mg by mouth two times a day. (Patient taking differently: Take 1 mg by mouth two times a day.) methotrexate 2.5 mg tablet Take 2.5 mg by mouth. Five tablets once weekly guselkumab (TREMFYA) 100 mg/mL auto-injector Inject 100 mg subcutaneously every 8 weeks. peg 3350-Electrolytes (GOLYTELY) 236-22.74-6.74 -5.86 gram suspension Take 4,000 mL by mouth one time only for 1 dose. Refer to printed prep instructions from your provider. No current facility-administered medications for this visit. ALLERGIES: Patient has no known allergies. PAST MEDICAL HISTORY PAST MEDICAL HISTORY Diagnosis Date History of shingles HTN (hypertension) Hypertension Perforated diverticulum Psoriasis Rheumatoid arthritis (HCC) PAST SURGICAL HISTORY PAST SURGICAL HISTORY Procedure Laterality Date APPENDEC INDICATED PURPOSE OTH MAJOR PX NOT SPX 01/14/2010 COLONOSCOPY 12/2009 LAPAROSCOPY COLECTOMY PARTIAL W/ANASTOMOSIS 01/14/2010 LAPS MOBLJ SPLENIC FLXR PFRMD W/PRTL COLECTOMY 01/14/2010 FAMILY HISTORY FAMILY HISTORY Problem Relation Age of Onset other (diverticulitis) Mother Hypertension Mother No Known Problems Father No Known Problems Sister No Known Problems Maternal Grandmother Hypertension Maternal Grandfather Psoriasis Paternal Grandmother No Known Problems Paternal Grandfather SOCIAL HISTORY Social History Tobacco Use Smoking status: Every Day Current packs/day: 1.50 Types: Cigarettes Smokeless tobacco: Never Vaping Use Vaping status: Never Used Substance Use Topics Alcohol use: Yes Alcohol/week: 30.0 standard drinks of alcohol Types: 30 Cans of Beer (12oz) per week Drug use: Not Currently Types: Marijuana REVIEW OF SYMPTOMS: REVIEW OF SYSTEMS: General: The patient denies fatigue, denies weight loss, denies weight gain, denies feeling hot, and feelings of cold. Eyes: The patient denies glaucoma, denies eye injury/surgery, + glasses or contacts. Ear/Nose/Throat: The patient denies allergies, denies hayfever, denies ear infections, and denies bloody noses. Cardiovascular: The patient denies chest pain, denies heart disease, denies high blood pressure, denies high cholesterol, and denies poor circulation. Respiratory: The patient denies tuberculosis, denies pneumonia, denies frequent cough, denies shortness of breath, and denies coughing up blood. Gastrointestinal: The patient denies difficulty swallowing, denies acid reflux, denies ulcers, denies jaundice/hepatitis, denies gallbladder problems, denies vomiting, denies black or tarry stools, denies hemorrhoids, denies bleeding from rectum, denies diverticulitis, denies constipation, denies diarrhea, denies loss of stool control, and denies hernias. Kidney/Bladder: The patient denies kidney stones, denies urine infections, and denies bloody urine. Skin: The patient denies a history of skin cancer, denies bleeding/changing moles, and denies a history of skin rash. Neurologic: The patient denies a history of epilepsy/convulsions, denies headaches, denies head/spinal injuries, and denies stroke/TIA. Psychiatric: The patient denies psychiatric medications, denies depression, and denies voices. Endocrine: The patient denies thyroid disorders, denies diabetes, and denies hormonal problems. Hematologic: The patient denies a history of bruising, denies bleeding, and denies anemia. Infections: The patient denies a history of measles and mumps, denies rheumatic fever, and denies sexually transmitted diseases. Musculoskeletal: The patient denies back pain/injury, denies back problems, denies sciatica, denies knee/foot trouble, denies arthritis, or denies gout. PHYSICAL EXAMINATION: General: The patient is 64 year old, male well nourished, well hydrated in no acute distress. The patient is oriented to time, place, and person. VITALS: Blood pressure 122/78, pulse 114, temperature 36.7 C (98 F), temperature source Temporal, resp. rate 14, height 193 cm (6' 4), weight 102.5 kg (226 lb), SpO2 97%. Body mass index is 27.51 kg/m . HEENT: Normal cephalic, ataumatic, pupils are equally round, sclera are anicteric, mucous membranes are moist, oropharynx is clear. Neck has no masses, asymmetry or lymphadenopathy. Respiratory: Clear to auscultation and percussion. Normal respiratory excursion and pattern. Cardiac: Examination is regular rate and rhythm. Normal S1/S2 Abdominal exam: Soft, nontender, with no palpable masses. No hepatosplenomegaly. No palpable hernias. Extremities: no clubbing, cyanosis or edema. No adenopathy. LABORATORY VALUES: As Noted RADIOLOGIC STUDIES: As Noted Assessment IMPRESSION: screen for colon cancer PLAN: I have reviewed my findings with the surgeon. Will plan for lower endoscopy. We discussed the risks and benefits of the planned endoscopy. I have informed the patient that complications can occur including failure to complete the endoscopy and perforation. Isidro had the opportunity to ask questions concerning the planned endoscopy. My staff has also explained the procedure to the patient in understandable terms and has given the patient printed material concerning the procedure. Isidro freely consents to surgery. I plan to use Golytely bowel preparation I have explained to the patient the difference between IV conscious sedation and MAC anesthesia - and I have offered either, according to the patient's wishes. I have explained that with IV conscious sedation there is no anesthesia provider available and therefore there is a limitation of the amount of IV medications that can be given and that the patient may wake up in the middle of the procedure and/or experience pain/discomfort during the procedure. Further discussion was done and the patient was given the opportunity to ask questions and all questions were answered. Isidro chooses IV conscious sedation. Isidro was counseled that if there are changes in his/her medical condition, to let the office know if surgery should proceed. If there are changes in patient's medical condition from time of this encounter to the day of the procedure that preclude anesthesia, patient may have procedure cancelled for patient's safety. Diagnoses: (Z12.11) Screen for colon cancer (primary encounter diagnosis) Portions of this documentation were copied and pasted from previous office visit notes in order to provide a cohesive continuity of the history. The note has been reviewed and edited and updated as necessary. Tiki Atkinson APRN.NURSING INFORMATICS ANALYST HISTORY AND PHYSICAL Isidro Preciado : 1960 REFERRING PHYSICIAN: MD Jarek Chase [address] [address] CHIEF COMPLAINT: Patient presents with: Consult: Colonscopy HPI: Isidro is a 64 year old male referred for endoscopy. Isidro notes due for screening colonoscopy. Isidro denies abdominal pain.. Isidro denies diarrhea. Isidro denies constipation. Isidro denies a change in bowel habits. Isidro denies melena. Isidro denies bright red blood per rectum. Isidro denies hemorrhoids. Isidro denies family history of colon issues. Isidro denies heartburn. Isidro denies dysphagia. Isidro denies a history of ulcers/ peptic ulcer disease. Isidro has hx of colon resection d/t perforated diverticulitis by Dr. Morales & Kulwant in 2009. Medical history is significant for HTN, RA. Denies CP, SOB, dizziness, palpitations, syncope, edema, recent hospitalizations Isidro has not undergone prior endoscopy. CURRENT MEDICATIONS Current Outpatient Medications Medication Sig amLODIPine (NORVASC) 10 mg tablet Take 10 mg by mouth once daily. folic acid 1 mg tablet Take 1 mg by mouth two times a day. (Patient taking differently: Take 1 mg by mouth two times a day.) methotrexate 2.5 mg tablet Take 2.5 mg by mouth. Five tablets once weekly guselkumab (TREMFYA) 100 mg/mL auto-injector Inject 100 mg subcutaneously every 8 weeks. peg 3350-Electrolytes (GOLYTELY) 236-22.74-6.74 -5.86 gram suspension Take 4,000 mL by mouth one time only for 1 dose. Refer to printed prep instructions from your provider. No current facility-administered medications for this visit. ALLERGIES: Patient has no known allergies. PAST MEDICAL HISTORY PAST MEDICAL HISTORY Diagnosis Date History of shingles HTN (hypertension) Hypertension Perforated diverticulum Psoriasis Rheumatoid arthritis (HCC) PAST SURGICAL HISTORY PAST SURGICAL HISTORY Procedure Laterality Date APPENDEC INDICATED PURPOSE OTH MAJOR PX NOT SPX 01/14/2010 COLONOSCOPY 12/2009 LAPAROSCOPY COLECTOMY PARTIAL W/ANASTOMOSIS 01/14/2010 LAPS MOBLJ SPLENIC FLXR PFRMD W/PRTL COLECTOMY 01/14/2010 FAMILY HISTORY FAMILY HISTORY Problem Relation Age of Onset other (diverticulitis) Mother Hypertension Mother No Known Problems Father No Known Problems Sister No Known Problems Maternal Grandmother Hypertension Maternal Grandfather Psoriasis Paternal Grandmother No Known Problems Paternal Grandfather SOCIAL HISTORY Social History Tobacco Use Smoking status: Every Day Current packs/day: 1.50 Types: Cigarettes Smokeless tobacco: Never Vaping Use Vaping status: Never Used Substance Use Topics Alcohol use: Yes Alcohol/week: 30.0 standard drinks of alcohol Types: 30 Cans of Beer (12oz) per week Drug use: Not Currently Types: Marijuana REVIEW OF SYMPTOMS: REVIEW OF SYSTEMS: General: The patient denies fatigue, denies weight loss, denies weight gain, denies feeling hot, and feelings of cold. Eyes: The patient denies glaucoma, denies eye injury/surgery, + glasses or contacts. Ear/Nose/Throat: The patient denies allergies, denies hayfever, denies ear infections, and denies bloody noses. Cardiovascular: The patient denies chest pain, denies heart disease, denies high blood pressure, denies high cholesterol, and denies poor circulation. Respiratory: The patient denies tuberculosis, denies pneumonia, denies frequent cough, denies shortness of breath, and denies coughing up blood. Gastrointestinal: The patient denies difficulty swallowing, denies acid reflux, denies ulcers, denies jaundice/hepatitis, denies gallbladder problems, denies vomiting, denies black or tarry stools, denies hemorrhoids, denies bleeding from rectum, denies diverticulitis, denies constipation, denies diarrhea, denies loss of stool control, and denies hernias. Kidney/Bladder: The patient denies kidney stones, denies urine infections, and denies bloody urine. Skin: The patient denies a history of skin cancer, denies bleeding/changing moles, and denies a history of skin rash. Neurologic: The patient denies a history of epilepsy/convulsions, denies headaches, denies head/spinal injuries, and denies stroke/TIA. Psychiatric: The patient denies psychiatric medications, denies depression, and denies voices. Endocrine: The patient denies thyroid disorders, denies diabetes, and denies hormonal problems. Hematologic: The patient denies a history of bruising, denies bleeding, and denies anemia. Infections: The patient denies a history of measles and mumps, denies rheumatic fever, and denies sexually transmitted diseases. Musculoskeletal: The patient denies back pain/injury, denies back problems, denies sciatica, denies knee/foot trouble, denies arthritis, or denies gout. PHYSICAL EXAMINATION: General: The patient is 64 year old, male well nourished, well hydrated in no acute distress. The patient is oriented to time, place, and person. VITALS: Blood pressure 122/78, pulse 114, temperature 36.7 C (98 F), temperature source Temporal, resp. rate 14, height 193 cm (6' 4), weight 102.5 kg (226 lb), SpO2 97%. Body mass index is 27.51 kg/m . HEENT: Normal cephalic, ataumatic, pupils are equally round, sclera are anicteric, mucous membranes are moist, oropharynx is clear. Neck has no masses, asymmetry or lymphadenopathy. Respiratory: Clear to auscultation and percussion. Normal respiratory excursion and pattern. Cardiac: Examination is regular rate and rhythm. Normal S1/S2 Abdominal exam: Soft, nontender, with no palpable masses. No hepatosplenomegaly. No palpable hernias. Extremities: no clubbing, cyanosis or edema. No adenopathy. LABORATORY VALUES: As Noted RADIOLOGIC STUDIES: As Noted Assessment IMPRESSION: screen for colon cancer PLAN: I have reviewed my findings with the surgeon. Will plan for lower endoscopy. We discussed the risks and benefits of the planned endoscopy. I have informed the patient that complications can occur including failure to complete the endoscopy and perforation. Isidro had the opportunity to ask questions concerning the planned endoscopy. My staff has also explained the procedure to the patient in understandable terms and has given the patient printed material concerning the procedure. Isidro freely consents to surgery. I plan to use Golytely bowel preparation I have explained to the patient the difference between IV conscious sedation and MAC anesthesia - and I have offered either, according to the patient's wishes. I have explained that with IV conscious sedation there is no anesthesia provider available and therefore there is a limitation of the amount of IV medications that can be given and that the patient may wake up in the middle of the procedure and/or experience pain/discomfort during the procedure. Further discussion was done and the patient was given the opportunity to ask questions and all questions were answered. Isidro chooses IV conscious sedation. Isidro was counseled that if there are changes in his/her medical condition, to let the office know if surgery should proceed. If there are changes in patient's medical condition from time of this encounter to the day of the procedure that preclude anesthesia, patient may have procedure cancelled for patient's safety. Diagnoses: (Z12.11) Screen for colon cancer (primary encounter diagnosis) Portions of this documentation were copied and pasted from previous office visit notes in order to provide a cohesive continuity of the history. The note has been reviewed and edited and updated as necessary. Tiki Atkinson APRN.NURSING INFORMATICS ANALYST documented in this encounter [facility] 12-02-2024 History of Presen t illness Narrative HISTORY AND PHYSICAL Isidro Preciado : 1960 REFERRING PHYSICIAN: MD Jarek Chase [address] [facility] [address] CHIEF COMPLAINT: Patient presents with: Consult: Colonscopy HPI: Isidro is a 64 year old male referred for endoscopy. Isidro notes due for screening colonoscopy. Isidro denies abdominal pain.. Isidro denies diarrhea. Isidro denies constipation. Isidro denies a change in bowel habits. Isidro denies melena. Isidro denies bright red blood per rectum. Isidro denies hemorrhoids. Isidro denies family history of colon issues. Isidro denies heartburn. Isidro denies dysphagia. Isidro denies a history of ulcers/ peptic ulcer disease. Isidro has hx of colon resection d/t perforated diverticulitis by Dr. Morales & Kulwant in 2009. Medical history is significant for HTN, RA. Denies CP, SOB, dizziness, palpitations, syncope, edema, recent hospitalizations Isidro has not undergone prior endoscopy. Current Outpatient Medications Medication Sig amLODIPine (NORVASC) 10 mg tablet Take 10 mg by mouth once daily. folic acid 1 mg tablet Take 1 mg by mouth two times a day. (Patient taking differently: Take 1 mg by mouth two times a day.) methotrexate 2.5 mg tablet Take 2.5 mg by mouth. Five tablets once weekly guselkumab (TREMFYA) 100 mg/mL auto-injector Inject 100 mg subcutaneously every 8 weeks. peg 3350-Electrolytes (GOLYTELY) 236-22.74-6.74 -5.86 gram suspension Take 4,000 mL by mouth one time only for 1 dose. Refer to printed prep instructions from your provider. No current facility-administered medications for this visit. ALLERGIES: Patient has no known allergies. PAST MEDICAL HISTORY Diagnosis Date History of shingles HTN (hypertension) Hypertension Perforated diverticulum Psoriasis Rheumatoid arthritis (HCC) PAST SURGICAL HISTORY Procedure Laterality Date APPENDEC INDICATED PURPOSE OTH MAJOR PX NOT SPX 01/14/2010 COLONOSCOPY 12/2009 LAPAROSCOPY COLECTOMY PARTIAL W/ANASTOMOSIS 01/14/2010 LAPS MOBLJ SPLENIC FLXR PFRMD W/PRTL COLECTOMY 01/14/2010 FAMILY HISTORY Problem Relation Age of Onset other (diverticulitis) Mother Hypertension Mother No Known Problems Father No Known Problems Sister No Known Problems Maternal Grandmother Hypertension Maternal Grandfather Psoriasis Paternal Grandmother No Known Problems Paternal Grandfather Social History Tobacco Use Smoking status: Every Day Current packs/day: 1.50 Types: Cigarettes Smokeless tobacco: Never Vaping Use Vaping status: Never Used Substance Use Topics Alcohol use: Yes Alcohol/week: 30.0 standard drinks of alcohol Types: 30 Cans of Beer (12oz) per week Drug use: Not Currently Types: Marijuana REVIEW OF SYMPTOMS: REVIEW OF SYSTEMS: General: The patient denies fatigue, denies weight loss, denies weight gain, denies feeling hot, and feelings of cold. Eyes: The patient denies glaucoma, denies eye injury/surgery, + glasses or contacts. Ear/Nose/Throat: The patient denies allergies, denies hayfever, denies ear infections, and denies bloody noses. Cardiovascular: The patient denies chest pain, denies heart disease, denies high blood pressure, denies high cholesterol, and denies poor circulation. Respiratory: The patient denies tuberculosis, denies pneumonia, denies frequent cough, denies shortness of breath, and denies coughing up blood. Gastrointestinal: The patient denies difficulty swallowing, denies acid reflux, denies ulcers, denies jaundice/hepatitis, denies gallbladder problems, denies vomiting, denies black or tarry stools, denies hemorrhoids, denies bleeding from rectum, denies diverticulitis, denies constipation, denies diarrhea, denies loss of stool control, and denies hernias. Kidney/Bladder: The patient denies kidney stones, denies urine infections, and denies bloody urine. Skin: The patient denies a history of skin cancer, denies bleeding/changing moles, and denies a history of skin rash. Neurologic: The patient denies a history of epilepsy/convulsions, denies headaches, denies head/spinal injuries, and denies stroke/TIA. Psychiatric: The patient denies psychiatric medications, denies depression, and denies voices. Endocrine: The patient denies thyroid disorders, denies diabetes, and denies hormonal problems. Hematologic: The patient denies a history of bruising, denies bleeding, and denies anemia. Infections: The patient denies a history of measles and mumps, denies rheumatic fever, and denies sexually transmitted diseases. Musculoskeletal: The patient denies back pain/injury, denies back problems, denies sciatica, denies knee/foot trouble, denies arthritis, or denies gout. PHYSICAL EXAMINATION: General: The patient is 64 year old, male well nourished, well hydrated in no acute distress. The patient is oriented to time, place, and person. VITALS: Blood pressure 122/78, pulse 114, temperature 36.7 C (98 F), temperature source Temporal, resp. rate 14, height 193 cm (6' 4), weight 102.5 kg (226 lb), SpO2 97%. Body mass index is 27.51 kg/m . HEENT: Normal cephalic, ataumatic, pupils are equally round, sclera are anicteric, mucous membranes are moist, oropharynx is clear. Neck has no masses, asymmetry or lymphadenopathy. Respiratory: Clear to auscultation and percussion. Normal respiratory excursion and pattern. Cardiac: Examination is regular rate and rhythm. Normal S1/S2 Abdominal exam: Soft, nontender, with no palpable masses. No hepatosplenomegaly. No palpable hernias. Extremities: no clubbing, cyanosis or edema. No adenopathy. LABORATORY VALUES: As Noted RADIOLOGIC STUDIES: As Noted Assessment IMPRESSION: screen for colon cancer PLAN: I have reviewed my findings with the surgeon. Will plan for lower endoscopy. We discussed the risks and benefits of the planned endoscopy. I have informed the patient that complications can occur including failure to complete the endoscopy and perforation. Isidro had the opportunity to ask questions concerning the planned endoscopy. My staff has also explained the procedure to the patient in understandable terms and has given the patient printed material concerning the procedure. Isidro freely consents to surgery. I plan to use Golytely bowel preparation I have explained to the patient the difference between IV conscious sedation and MAC anesthesia - and I have offered either, according to the patient's wishes. I have explained that with IV conscious sedation there is no anesthesia provider available and therefore there is a limitation of the amount of IV medications that can be given and that the patient may wake up in the middle of the procedure and/or experience pain/discomfort during the procedure. Further discussion was done and the patient was given the opportunity to ask questions and all questions were answered. Isidro chooses IV conscious sedation. Isidro was counseled that if there are changes in his/her medical condition, to let the office know if surgery should proceed. If there are changes in patient's medical condition from time of this encounter to the day of the procedure that preclude anesthesia, patient may have procedure cancelled for patient's safety. Diagnoses: (Z12.11) Screen for colon cancer (primary encounter diagnosis) Portions of this documentation were copied and pasted from previous office visit notes in order to provide a cohesive continuity of the history. The note has been reviewed and edited and updated as necessary. Tiki Atkinson APRN.NURSING INFORMATICS ANALYST documented in this encounter [facility] 12-02-2024 Note HNO ID: [id number] Author: TIKI ATKINSON APRN.GIUSEPPE Service: ? Author Type: Nurse Practitioner Type: Progress Notes Filed: 12/02/2024 08:44 Note Text: HISTORY AND PHYSICAL Isidro Preciado : 1960 REFERRING PHYSICIAN: MD Jarek Chase [address] [address] CHIEF COMPLAINT: Patient presents with: Consult: Colonscopy HPI: Isidro is a 64 year old male referred for endoscopy. Isidro notes due for screening colonoscopy. Isidro denies abdominal pain.. Isidro denies diarrhea. Isidro denies constipation. Isidro denies a change in bowel habits. Isidro denies melena. Isidro denies bright red blood per rectum. Isidro denies hemorrhoids. Isidro denies family history of colon issues. Isidro denies heartburn. Isidro denies dysphagia. Isidro denies a history of ulcers/ peptic ulcer disease. Isidro has hx of colon resection d/t perforated diverticulitis by Dr. Morales AND Kulwant in 2009. Medical history is significant for HTN, RA. Denies CP, SOB, dizziness, palpitations, syncope, edema, recent hospitalizations Isidro has not undergone prior endoscopy. Current Outpatient Medications Medication Sig amLODIPine (NORVASC) 10 mg tablet Take 10 mg by mouth once daily. folic acid 1 mg tablet Take 1 mg by mouth two times a day. (Patient taking differently: Take 1 mg by mouth two times a day.) methotrexate 2.5 mg tablet Take 2.5 mg by mouth. Five tablets once weekly guselkumab (TREMFYA) 100 mg/mL auto-injector Inject 100 mg subcutaneously every 8 weeks. peg 3350-Electrolytes (GOLYTELY) 236-22.74-6.74 -5.86 gram suspension Take 4,000 mL by mouth one time only for 1 dose. Refer to printed prep instructions from your provider. No current facility-administered medications for this visit. ALLERGIES: Patient has no known allergies. PAST MEDICAL HISTORY Diagnosis Date History of shingles HTN (hypertension) Hypertension Perforated diverticulum Psoriasis Rheumatoid arthritis (HCC) PAST SURGICAL HISTORY Procedure Laterality Date APPENDEC INDICATED PURPOSE OTH MAJOR PX NOT SPX 01/14/2010 COLONOSCOPY 12/2009 LAPAROSCOPY COLECTOMY PARTIAL W/ANASTOMOSIS 01/14/2010 LAPS MOBLJ SPLENIC FLXR PFRMD W/PRTL COLECTOMY 01/14/2010 FAMILY HISTORY Problem Relation Age of Onset other (diverticulitis) Mother Hypertension Mother No Known Problems Father No Known Problems Sister No Known Problems Maternal Grandmother Hypertension Maternal Grandfather Psoriasis Paternal Grandmother No Known Problems Paternal Grandfather Social History Tobacco Use Smoking status: Every Day Current packs/day: 1.50 Types: Cigarettes Smokeless tobacco: Never Vaping Use Vaping status: Never Used Substance Use Topics Alcohol use: Yes Alcohol/week: 30.0 standard drinks of alcohol Types: 30 Cans of Beer (12oz) per week Drug use: Not Currently Types: Marijuana REVIEW OF SYMPTOMS: REVIEW OF SYSTEMS: General: The patient denies fatigue, denies weight loss, denies weight gain, denies feeling hot, and feelings of cold. Eyes: The patient denies glaucoma, denies eye injury/surgery, + glasses or contacts. Ear/Nose/Throat: The patient denies allergies, denies hayfever, denies ear infections, and denies bloody noses. Cardiovascular: The patient denies chest pain, denies heart disease, denies high blood pressure, denies high cholesterol, and denies poor circulation. Respiratory: The patient denies tuberculosis, denies pneumonia, denies frequent cough, denies shortness of breath, and denies coughing up blood. Gastrointestinal: The patient denies difficulty swallowing, denies acid reflux, denies ulcers, denies jaundice/hepatitis, denies gallbladder problems, denies vomiting, denies black or tarry stools, denies hemorrhoids, denies bleeding from rectum, denies diverticulitis, denies constipation, denies diarrhea, denies loss of stool control, and denies hernias. Kidney/Bladder: The patient denies kidney stones, denies urine infections, and denies bloody urine. Skin: The patient denies a history of skin cancer, denies bleeding/changing moles, and denies a history of skin rash. Neurologic: The patient denies a history of epilepsy/convulsions, denies headaches, denies head/spinal injuries, and denies stroke/TIA. Psychiatric: The patient denies psychiatric medications, denies depression, and denies voices. Endocrine: The patient denies thyroid disorders, denies diabetes, and denies hormonal problems. Hematologic: The patient denies a history of bruising, denies bleeding, and denies anemia. Infections: The patient denies a history of measles and mumps, denies rheumatic fever, and denies sexually transmitted diseases. Musculoskeletal: The patient denies back pain/injury, denies back problems, denies sciatica, denies knee/foot trouble, denies arthritis, or denies gout. PHYSICAL EXAMINATION: General: The patient is 64 year old, male well no (more content not included)... [facility] 06-03-2024 History of Presen t illness Narrative Subjective Patient ID: Isidro Preciado is a 63 y.o. male who presents for Sick. HPI PT is here today for 4 week. Last visit he was started on carvedilol and reports its been running good, except for this last week since he has been in pain from the shingles and not being able to take his medication for this. Reports its been running in the 130s over 90s. Shingles and associated pain appears to be getting better. HTN: high today. Reports that it is better at home. But diastolic still in 90s. Increasing amlodipine. Review of Systems ROS negative except discussed above in HPI. Vitals: 06/03/24 0800 BP: (!) 151/103 Pulse: 100 SpO2: 96% Objective Physical Exam Constitutional: Appearance: Normal appearance. Neurological: Mental Status: He is alert. Assessment/Plan Isidro was seen today for sick. Diagnoses and all orders for this visit: Herpes zoster without complication - HYDROcodone-acetaminophen ([place]) 5-325 mg tablet; Take 1 tablet by mouth every 6 hours if needed for severe pain (7 - 10) for up to 7 days. - gabapentin (Neurontin) 300 mg capsule; Take 2 capsules (600 mg) by mouth 3 times a day as needed (moderate pain). Primary hypertension - amLODIPine (Norvasc) 10 mg tablet; Take 1 tablet (10 mg) by mouth once daily. Tachycardia - amLODIPine (Norvasc) 10 mg tablet; Take 1 tablet (10 mg) by mouth once daily. Follow up as needed. Du Guerrero MD MPH documented in this encounter [facility] Work Phone: 06-03-2024 Instructions Du Guerrero MD MPH - 06/03/2024 8:00 AM EDT Please start taking two of amlodipine. But when you last picker new prescription it will be for 10mg, so take one after you pick the new prescription. documented in this encounter [facility] Work Phone: 05-27-2024 History of Presen t illness Narrative Images from the original note were not included. Subjective Patient ID: Isidro Preciado is a 63 y.o. male who presents for Herpes Zoster . HPI PT is here today for shingles. Reports he noticed the shingles on Thursday. Thought he pulled a muscle but kept getting worse. Reports the rash on the right side of his chest onto his back. Reports Dr. Butcher called in Gabapentin but it is not strong enough and working. Reports he does not itch bad reports he has been taking the colder showers like was recommended. Reports the electric shock feeling stopped 2 days go, but the pain is still there. Review of Systems ROS negative except discussed above in HPI. Vitals: 05/27/24 1128 BP: (!) 138/93 Pulse: 103 SpO2: 94% Objective Physical Exam Assessment/Plan Isidro was seen today for herpes zoster. Diagnoses and all orders for this visit: Herpes zoster without complication - gabapentin (Neurontin) 300 mg capsule; Take 2 capsules (600 mg) by mouth 3 times a day for 10 days. - HYDROcodone-acetaminophen ([place]) 5-325 mg tablet; Take 1 tablet by mouth every 6 hours if needed for severe pain (7 - 10) for up to 7 days. Follow up as scheduled Du Guerrero MD MPH documented in this encounter [facility] Work Phone: 05-06-2024 History of Presen t illness Narrative Subjective Patient ID: Isidro Preciado is a 63 y.o. male who presents for Follow-up (PT is here today for 1 month FUV. ). HPI Reports that his symptoms of headache improved since increase in metoprolol dose. Also his vision got better. However, home readings show still higher diastolic blood pressure. Blood pressure and pulse still elevated in clinic today as well. Changing from Metoprolol to carvedilol. Will start carvedilol. He likes once daily formulation, so sending CR formula. If insurance does not cover CR then will send short acting but needs to take twice daily. He will call me if this is not covered or too expensive. Review of Systems ROS negative except discussed above in HPI. Vitals: 05/06/24 0802 BP: (!) 132/98 Pulse: 97 SpO2: 97% Objective Physical Exam Constitutional: Appearance: Normal appearance. Cardiovascular: Rate and Rhythm: Normal rate and regular rhythm. Pulmonary: Effort: Pulmonary effort is normal. Breath sounds: Normal breath sounds. Neurological: Mental Status: He is alert. Assessment/Plan Isidro was seen today for follow-up. Diagnoses and all orders for this visit: Primary hypertension (Primary) - carvedilol CR (Coreg CR) 20 mg 24 hr capsule; Take 1 capsule (20 mg) by mouth once daily. Do not crush or chew. Follow up in 4 weeks. Du Guerrero MD MPH documented in this encounter [facility] Work Phone: 05-06-2024 Instructions Du Guerrero MD MPH - 05/06/2024 8:00 AM EDT Please call me in a couple of week sif your blood pressure is till high. Will check back in 4 weeks otherwise. documented in this encounter [facility] Work Phone: 04-01-2024 History of Presen t illness Narrative Subjective Patient ID: Isidro Preciado is a 63 y.o. male who presents for Follow-up (Pt is here today for a 6 month FUV. ). HPI Patient is here for follow up. HTN: still high. Tachycardia noticed as well. But other times is better. Smokes cigarette. Could be contributing. Plan: increased dose of metoprolol. Fasting glucose is high. Will check A1C. NO fam hx of diabetes. Review of Systems ROS negative except discussed above in HPI. Vitals: 04/01/24 0825 BP: (!) 140/94 Pulse: 104 SpO2: 96% Objective Physical Exam Constitutional: Appearance: Normal appearance. Cardiovascular: Rate and Rhythm: Normal rate and regular rhythm. Pulses: Normal pulses. Heart sounds: Normal heart sounds. Pulmonary: Effort: Pulmonary effort is normal. Breath sounds: Normal breath sounds. Neurological: Mental Status: He is alert. Assessment/Plan Isidro was seen today for follow-up. Diagnoses and all orders for this visit: Impaired fasting glucose (Primary) - Hemoglobin A1C; Future Primary hypertension - metoprolol succinate XL (Toprol-XL) 100 mg 24 hr tablet; Take 1 tablet (100 mg) by mouth once daily. Do not crush or chew. Tachycardia - metoprolol succinate XL (Toprol-XL) 100 mg 24 hr tablet; Take 1 tablet (100 mg) by mouth once daily. Do not crush or chew. Follow up in 6 months. Du Guerrero MD MPH documented in this encounter [facility] Work Phone: 10-02-2023 History of Presen t illness Narrative Subjective Patient ID: Isidro Preciado is a 63 y.o. male who presents [...] Future Follow up in 6 months. Du Guerrero MD MPH documented in this encounter [facility] Work Phone: 05-29-2023 History of Presen t illness Narrative Subjective Patient ID: Isidro Preciado is a 62 y.o. male who presents [...] daily. Follow up in 3 months. Du Guerrero MD MPH documented in this encounter [facility] Work Phone: 04-17-2023 History of Presen t illness Narrative Subjective Patient ID: Isidro Preciado is a 62 y.o. male who presents [...] high for the last two visits with balance weigher. Last time he took prednisone about a [...] Future Follow up in 3-4 weeks. Du Guerrero MD MPH documented in this encounter [facility] Work Phone: Evaluation note No assessment inform ation available [facility] Work Phone: Evaluation note Diagnosis Encounter to establish care- Primary Primary hypertension Unspecified essential hypertension Tachycardia Unspecified tachycardia documented in this encounter [facility] Work Phone: Evaluation note* Diagnosis Primary hypertension Unspecified essential hypertension Tachycardia Unspecified tachycardia documented in this encounter [facility] Work Phone: Evaluation note* Diagnosis Primary hypertension- Primary Unspecified essential hypertension Tachycardia Unspecified tachycardia Lipid screening Screening for lipoid disorders documented in this encounter [facility] Work Phone: Evaluation note* Diagnosis Impaired fasting glucose- Primary Primary hypertension Unspecified essential hypertension Tachycardia Unspecified tachycardia documented in this encounter [facility] Work Phone: Evaluation note* Diagnosis Primary hypertension- Primary Unspecified essential hypertension documented in this encounter [facility] Work Phone: Evaluation note* Diagnosis Herpes zoster without complication documented in this encounter [facility] Work Phone: Evaluation note* Diagnosis Herpes zoster without complication Primary hypertension Unspecified essential hypertension Tachycardia Unspecified tachycardia documented in this encounter [facility] Work Phone: Evaluation note* Diagnosis Screen for colon cancer- Primary Special screening for malignant neoplasms, colon [facility] Diagnosis Special screening for malignant neoplasms, colon- Primary Screen for colon cancer Special screening for malignant neoplasms, colon [facility] (narrative)No reason for referral information availableWSouthern [facility] Work Phone: Reason for visit Narrative* Outpatient Procedure (Routine) - Closed Specialty Diagnoses / Procedures Referred By Contac t Referred To Contact [facility] Diagnoses Screen for colon cancer Procedures COLONOSCOPY SCREENING COLONOSCOPY FLX DX W/COLLJ SPEC WHEN Tiki Gaitan APRN.NURSING INFORMATICS ANALYST [address] [place] [address] Phone: tel: fax: [facility] [address] [place] [address] Referral ID Status Reason Start Date Expiration Date V isits Requested Visits Authorized [id number] Closed Auto-Generate d Referral 12/28/2024 10/18/2025 1 1 [facility] Chief Complaint and Reason for Visit Chief Complaint ARTHRITIS/PAIN- COPY PCP PAIN- COPY PCP Chief Complaint PAIN- COPY PCP Chief Complaint PAIN- COPY PCP PAIN- COPY PCP Chief Complaint PAIN- COPY PCP PAIN- COPY PCP ELEVATED LIVER ENZYMES Chief Complaint PAIN- COPY PCP ELEVATED LIVER ENZYMES ARTHROPATHY, HTN Chief Complaint Admit Date COPY PCP October 17, 2024 7:53am ALSO EORDER FROM January 05, 2025 8:00am Chief Complaint Admit Date ALSO EORDER FROM January 05, 2025 8:00am Chief Complaint Admit Date ALSO EORDER FROM January 05, 2025 8:00am PAIN- COPY PCP March 27, 2025 8:34a m Summary Purpose Family History No Family History Records FoundNo Family History Records FoundNo Family History Records FoundNo Family History Records Found Advance Directives No Advanced Directives Records FoundNo Advanced Directives Records FoundNo Advanced Directives Records FoundNo Advanced Directives Records Found Reason for Referral Specialty Diagnoses / Procedures Referred By Contac t Referred To Contact Diagnoses Herpes zoster without complication Du Guerrero MD MPH [address] [facility], [place] [address] Referral ID Status Reason Start Date Expiration Date Visits Re quested Visits Authorized [id number] Closed 1 1 Additional Source Comments Goals (unrecognized section and content) Goals may be documented in a n alternate sectionGoals may be documented in an alternate sectionGoals may be documented in an alternate sectionGoals may be documented in an alternate sectionGoals may be documented in an alternate sectionGoals may be documented in an alternate sectionGoals may be documented in an alternate sectionGoals may be documented in an alternate sectionGoals may be documented in an alternate sectionGoals may be documented in an alternate sectionGoals may be documented in an alternate sectionGoals may be documented in an alternate sectionGoals may be documented in an alternate sectionGoals may be documented in an alternate section Care Teams (unrecognized sec tion and content) Team Status: Active Member Role Status Dates Norbert WATERMAN MD Family Provider Active Dr. Norbert Stanton MD Primary Care Provider Active Team Status: Inactive Member Role Status Dates Dr. Norbert Stanton MD Primary Care Provider Active Dr. Megan Mosqueda MD Attending Provider, Referring Provider Active Driver'S License Examiner Relationship Specialty Start Date End Date Du Guerrero MD MPH [address] [facility] [place] [address] PCP - General Family Medicine 04/14/23 Team Status: Active Member Role Status Dates Norbert WATERMAN MD Family Provider Active Dr. Du Guerrero MD Primary Care Provider Activ e Team Status: Inactive Member Role Status Dates Dr. Du Guerrero MD Primary Care Provider, Othe r Provider Active Dr. Megan Mosqueda MD Attending Provider, Referring Provider Active Driver'S License Examiner Relationship Specialty Start Date End Date Du Guerrero MD MPH [address] [facility] [place] [id number] PCP - General Family Medicine 04/14/23 Team Status: Inactive Member Role Status Dates Dr. Du Guerrero MD Primary Care Provider Activ e Dr. Megan Mosqueda MD Attending Provider, Referring Provider Active Driver'S License Examiner Relationship Specialty Start Date End Date Du Guerrero MD MPH [address] [facility] [address] [place] [id number] PCP - General Family Medicine 04/14/23 Driver'S License Examiner Relationship Specialty Start Date End Date Du Guerrero MD MPH [address] [facility] [place] [address] PCP - General Family Medicine 04/14/23 Driver'S License Examiner Relationship Specialty Start Date End Date Du Guerrero MD MPH [address] [facility] [place] [address] PCP - General Family Medicine 04/14/23 Driver'S License Examiner Relationship Specialty Start Date End Date Du Guerrero MD MPH [address] [facility] [place] [address] PCP - General Family Medicine 04/14/23 Driver'S License Examiner Relationship Specialty Start Date End Date Fior Coats MD [address] [facility] [address] [place], [place] [id number] PCP - General Family Medicine 11/29/24 Driver'S License Examiner Relationship Specialty Start Date End Date Fior Coats MD [address] [facility] [address] [place], [place] [address] PCP - General Family Medicine 11/29/24 Team Status: Active Member Role Status Dates Norbert WATERMAN MD Family Provider Active Dr. Fior Coats MD Primary Care Provider Active Team Status: Inactive Member Role Status Dates Dr. Fior Coats MD Primary Care Provider Active Start: October 17, 2024 End: October 17, 2024 Dr. Megan Mosqueda MD Attending Provider Active Start: October 17, 2024 End: October 17, 2024 Dr. Megan Mosqueda MD Referring Provider Active Start: October 17, 2024 End: October 17, 2024 Team Status: Inactive Member Role Status Dates Dr. Fior Coats MD Primary Care Provider Active Start: January 05, 2025 End: January 05, 2025 Dr. Fior Coats MD Referring Provider Active Start: January 05, 2025 End: January 05, 2025 Dr. Megan Mosqueda MD Attending Provider Active Start: January 05, 2025 End: January 05, 2025 Driver'S License Examiner Relationship Specialty Start Date End Date Fior Coats MD [address] [facility] [address] [place] [address] PCP - General Family Medicine 11/29/24 Team Status: Inactive Member Role Status Dates Dr. Fior Coats MD Primary Care Provider Active Start: March 10, 2025 End: March 10, 2025 Dr. Fior Coats MD Attending Provider Active Start: March 10, 2025 End: March 10, 2025 Dr. Foir Coats MD Referring Provider Active Start: March 10, 2025 End: March 10, 2025 Team Status: Inactive Member Role Status Dates Dr. Fior Coats MD Primary Care Provider Active Start: March 27, 2025 End: March 27, 2025 Dr. Megan Mosqueda MD Attending Provider Active Start: March 27, 2025 End: March 27, 2025 Dr. Megan Mosqueda MD Referring Provider Active Start: March 27, 2025 End: March 27, 2025 Reason for Visit (unrecogniz ed section and content) Reason Comments New PT New PT visit. Here t o establish care for concerns of high BP. Arthritis clinic told him his BP was high and needed to get checked out. Does not know how high it has been just that it was elevated. Also suffers from low blood sugar, runs in his family. Cares pepsi around in case it drops really low. Pulse is elevated states he did smoke before coming in this morning Reason Comments Follow-up 3-6 week FUV. Denies checking BP at home, so does not know how high it has been running Reason Comments Follow-up PT is here for 4 mon FUV. Did bring copy of his BP log, reports its been running good for the most part, only a couple days of it being high. Reason Comments Follow-up Pt is here today for a 6 month FUV. Reason Comments Follow-up PT is here today for 1 month FUV. Reason Comments Herpes Zoster PT is here today for shingles. Reports he noticed the shingles on Thursday. Thought he pulled a muscle but kept getting worse. Reports the rash on the right side of his chest onto his back. Reports Dr. Butcher called in Gabapentin but it is not strong enough and working. Reports he does not itch bad reports he has been taking the colder showers like was recommended. Reports the electric shock feeling stopped 2 days go, but the pain is still there. Reason Comments Sick PT is here today for 4 week. Last visit he was started on carvedilol and reports its been running good, except for this last week since he has been in pain from the shingles and not being able to take his medication for this. Reports its been running in the 130s over 90s. Reports the pain is getting better though. Shingles appears to be getting better though. Reason Comments Consult Colonscopy Reason Comments Results (unrecognized sect ion and content) No Status Records FoundNo Status Records FoundNo Status Records FoundNo Status Records Found INFORMATION SOURCE (unrecogn ized section and content) DATE CREATED AUTHOR 05/23/2024 [facility] DATE CREATED AUTHOR AUTHOR'S ORGANIZ ATION 06/04/2024 [facility] DATE CREATED AUTHOR AUTHOR'S ORGANIZ ATION 02/10/2025 [facility] DATE CREATED AUTHOR AUTHOR'S ORGANIZ ATION 06/04/2025 [facility] Source Comments (unrecognize d section and content) In the event this informatio n is protected by the Federal Confidentiality of Alcohol and Drug Abuse Patient Records regulations: The Federal rules restrict any use of the information to criminally investigate or prosecute any alcohol or drug abuse patient.[facility] the event this information is protected by the Federal Confidentiality of Alcohol and Drug Abuse Patient Records regulations: The Federal rules restrict any use of the information to criminally investigate or prosecute any alcohol or drug abuse patient.[facility] the event this information is protected by the Federal Confidentiality of Alcohol and Drug Abuse Patient Records regulations: The Federal rules restrict any use of the information to criminally investigate or prosecute any alcohol or drug abuse patient.[facility] FOR RECORDS PERTAINING TO PATIENTS WHO ARE [...] BE BASED ON THE PRIMARY CLINICAL RECORDS. [facility] [employer] [facility] provides no warranty or guarantee of the accuracy or completeness of information in this document.
== END | disposition home or self-care (01) ==
LOC: CT 06:17
PROVIDERS: PCP Family Medicine; Referring Provider Family Medicine; Visit Provider Family Medicine
DX: Z12.2 Encounter for screening for malignant neoplasm of respiratory organs (principal); Z87.891 Personal history of nicotine dependence
CPT/HCPCS: 71271

== ENCOUNTER → 2025-07-24 | Outpatient (CLI) | payer OTHER, SELFPAY ==
[2025-07-24 12:24] LABS: Hematocrit 47.4 % (40-54); Hemoglobin 16.3 g/dL (13.0-16.5); Immature Granulocytes Count 0.030 X10^3/uL (0.0-0.0); Mean Corp Hgb Conc 34.4 g/dL (32-36); Mean Corpuscular Volume 96.3 fL (80-94); Mean Platelet Vol. 10.9 fl (6.2-12.0); NRBC Flagged by Analyzer 0 % (0-5); Platelet Count 279 K/mm3 (150-450); RBC Distribution Width CV 12.6 % (11.6-14.6); RBC Distribution Width SD 45.5 fl (35.1-43.9); Red Blood Count 4.92 M/mm3 (4.6-6.2); White Blood Count 6.3 K/mm3 (4.4-11.0)
[2025-07-24 12:52] LABS: AST(SGOT) 28 U/L (<=37); Alanine Aminotransfer ALT/SGPT 27 U/L (<=46); Albumin, Serum 4.3 g/dL (3.4-4.8); Alkaline Phosphatase 84 U/L (40-129); Anion Gap 12 (5-15); BUN 7 mg/dL (4-19); BUN/Creat Ratio 8.3 RATIO (10-20); Calcium,Total 9.2 mg/dL (7.6-11.0); Carbon Dioxide 24.0 mmol/L (21.0-32.0); Chloride 98 mmol/L (98-108); Globulin 2.9 g/dL (2.2-4.2); Glucose 151 mg/dL (70-99); Potassium 4.2 mmol/L (3.3-5.1)
== END | disposition home or self-care (01) ==
LOC: MTLAB 09:40
PROVIDERS: Internal Medicine Rheumatology; PCP Family Medicine; Referring Provider Family Medicine; Visit Provider Family Medicine
DX: L40.59 Other psoriatic arthropathy (principal); Z79.899 Other long term (current) drug therapy
CPT/HCPCS: 36415; 80053; 85025

== ENCOUNTER → 2025-09-08 | Outpatient (CLI) | payer OTHER, SELFPAY ==
[2025-09-08 08:13] LABS: Mucous, Urine 0 SEEN /hpf (<or=2+); Red Blood Cells-Urine 0 SEEN /hpf (0-5); Squamous Epithelial Cells - UA 0 SEEN /hpf (0-5)
[2025-09-08 10:10] LABS: Color, Urine Straw (Yellow); Glucose, Dipstick Normal (Normal); Ketone-Dipstick Negative (Negative); Leukocyte Esterase-Dipstick Negative /ul (Negative); Nitrite-Dipstick Negative (Negative); Occult Blood-Urine Negative /ul (Negative); Protein-Dipstick Negative (Negative); Specific Gravity, Urine 1.005 (1.002-1.030); Urine Bilirubin Dipstick Negative (Negative)
[2025-09-08 10:12] LABS: Hematocrit 47.5 % (40-54); Hemoglobin 16.1 g/dL (13.0-16.5); Immature Granulocytes Count 0.020 X10^3/uL (0.0-0.0); Mean Corp Hgb Conc 33.9 g/dL (32-36); Mean Corpuscular Volume 97.7 fL (80-94); Mean Platelet Vol. 10.4 fl (6.2-12.0); NRBC Flagged by Analyzer 0 % (0-5); Platelet Count 279 K/mm3 (150-450); RBC Distribution Width CV 12.6 % (11.6-14.6); RBC Distribution Width SD 45.4 fl (35.1-43.9); Red Blood Count 4.86 M/mm3 (4.6-6.2); White Blood Count 4.5 K/mm3 (4.4-11.0)
[2025-09-08 10:43] LABS: Albumin, Serum 4.3 g/dL (3.4-4.8); BUN 7 mg/dL (4-19); BUN/Creat Ratio 9.5 RATIO (10-20); Globulin 3.0 g/dL (2.2-4.2); Glucose 119 mg/dL (70-99)
[2025-09-08 10:44] LABS: AST(SGOT) 22 U/L (<=37); Alanine Aminotransfer ALT/SGPT 25 U/L (<=46); Alkaline Phosphatase 80 U/L (40-129); Anion Gap 10 (5-15); Calcium,Total 9.4 mg/dL (7.6-11.0); Carbon Dioxide 26.4 mmol/L (21.0-32.0); Chloride 99 mmol/L (98-108); Cholesterol 204 mg/dL (<=200); Low Density Lipoprotein Calc. 101 mg/dL; Magnesium 2.3 mg/dL (1.5-2.2); Potassium 4.5 mmol/L (3.3-5.1); Triglycerides 51 mg/dL; Very Low Density Lipoprotein 10 mg/dL (5-40); cholesterol:hdl ratio screen 2.18
== END | disposition home or self-care (01) ==
LOC: MFPLAB 08:12
PROVIDERS: PCP Family Medicine; Visit Provider Family Medicine
DX: R73.09 Other abnormal glucose (principal); I10 Essential (primary) hypertension
CPT/HCPCS: 36415; 80053; 80061; 81001; 83036; 83735; 85025